=== PATIENT | female | born 1945 | race Caucasian/White ===

== ENCOUNTER 2016-10-07 11:14 | Inpatient (IN) | payer MEDICARE ==
[~2016-10-07] VITALS: Ht 165.1 cm; Wt 91.3 kg
[2016-10-07] VITALS (12 sets, daily range): BP systolic 119–152; BP diastolic 60–82; PULSE 73–79; RESP 16–24; TEMP 98.2–102.6; O2SAT 89–94
[~2016-10-07 11:14] MED LIST: AMIT100 PO; ASPI325T PO; CALA240T PO; CIPR500T4 PO; FISH100020 PO; FLAG500T PO; HYDR-3533 PO; MEVA40TA PO; MULT1TAB46 PO; VITA10004 PO
[2016-10-07] MEDS ORDERED: MULT-135 PO (13:04)
[2016-10-07] MEDS ORDERED: OMEG100010 PO (13:04)
[2016-10-07] MEDS ORDERED: VITA10004 PO (13:04)
[2016-10-07] MEDS ORDERED: AMIT1TAB79 PO (13:04)
[2016-10-07] MEDS ORDERED: VERA1TAB17 PO (13:04)
[2016-10-07] MEDS ORDERED: ASPI325T PO (13:04)
[2016-10-07] MEDS ORDERED: LOVA40TA PO (13:04)
[2016-10-07] MEDS ORDERED: MUCI30TA2 PO (13:19)
[2016-10-07] MEDS ORDERED: ACETAMINOPHEN 325 MG TAB PO ONE (13:45)
[2016-10-07] MEDS ORDERED: methylPREDNISolone SOD SUCC 125 MG/2 ML VIAL IVP ONE (13:45)
[2016-10-07 13:48] LABS: AUTOMATED NEUTROPHIL # 9.6 TH/MM3 (1.8-7.7); BASOPHIL % 0.1 % (0.0-2.0); HEMATOCRIT 38.5 % (35.0-46.0); LYMPHOCYTE # 0.6 TH/MM3 (1.0-4.8); MEAN CELL VOLUME 97.1 FL (80.0-100.0); MEAN CORPUSCULAR HEMOGLOBIN 32.2 PG (27.0-34.0); MEAN CORPUSCULAR HGB CONC 33.2 % (32.0-36.0); MONO % 0.7 % (0.0-8.0); NEUT % 93.2 % (16.0-70.0); PLATELET COUNT 199 TH/MM3 (150-450); RED BLOOD COUNT 3.97 MIL/MM3 (4.00-5.30); RED CELL DISTRIBUTION WIDTH 12.7 % (11.6-17.2); WHITE BLOOD COUNT 10.3 TH/MM3 (4.0-11.0)
[2016-10-07] MEDS: RESP: ALBUTEROL 2.5 MG/IPRATROPIUM 0.5 MG NEB (SCH) INH ×2 (13:51→13:52)
[2016-10-07 13:55] LABS: HEMO FLAGS DIFF FINAL
--- NOTE | 2016-10-07 13:55 | RADHPO ---
EXAM DATE/TIME: 10/07/2016 13:34 [facility] COMPARISON: No previous studies available for comparison. INDICATIONS : Fever and vomiting. MEDICAL HISTORY : Chronic obstructive pulmonary disease. Diverticulitis. Cardiovascular disease. Hypertension SURGICAL HISTORY : Hysterectomy. Inguinal hernia repair. ENCOUNTER: Initial ACUITY: 1 week PAIN SCORE: 6/10 LOCATION: Bilateral chest FINDINGS: A single view of the chest demonstrates patchy consolidative changes greater within the upper lobes a nd left midlung. Heart enlarged. Previous median sternotomy. Osseous structures are intact. CONCLUSION: 1. Multi-lobar consolidation likely multilobar pneumonia. Treatment and followup to resolution recomm ended. 2. Cardiomegaly and previous median sternotomy. Justen Keen MD on October 07, 2016 at 13:52 Board Certified Radiologist. This report was verified electronically.
[2016-10-07 13:58] LABS: CHLORIDE 98 MEQ/L (98-107); POTASSIUM 3.8 MEQ/L (3.5-5.1); SODIUM (NA) 136 MEQ/L (136-145)
[2016-10-07 14:02] LABS: ANION GAP 13 MEQ/L (5-15); BICARBONATE 24.7 MEQ/L (21.0-32.0); BLOOD UREA NITROGEN 15 MG/DL (7-18)
[2016-10-07 14:05] LABS: ALT (GPT) 18 U/L (10-53); AST (GOT) 19 U/L (15-37); GLOMERULAR FILTRATION RATE 55 ML/MIN (>89)
[2016-10-07 14:07] LABS: TOTAL BILIRUBIN ADULT 0.6 MG/DL (0.2-1.0)
[2016-10-07 14:08] LABS: ALKALINE PHOSPHATASE 72 U/L (45-117)
[2016-10-07] MEDS ORDERED: cefTRIAXone INJ 1,000 MG in SODIUM CHLORIDE 0.9% INJ 100 ML IV ONE (14:15)
[2016-10-07] MEDS ORDERED: AZITHROMYCIN INJ 500 MG in SODIUM CHLOR 0.9% 250 ML INJ 250 ML IV ONE (14:15)
--- NOTE | 2016-10-07 14:24 | PD ---
HPI Chief Complaint: GI Complaint Time Seen by Provider: 13:27 Travel History International Travel<30 days: No Contact w/Intl Traveler<30days: No Traveled to known affect area: No History of Present Illness HPI This 71 year-old woman presents emergency department complaining of feeling sick for the past 4 days. She has bodyaches fever headache cough. Some nausea but no vomiting. No change in her vomitus. No urinary symptoms. She is a history of diverticulitis as well as remote history COPD. She is really have a lot of breathing trouble doesn't take breathing medicines regularly. She does get pneumonia fairly often. No definite sick contacts. She otherwise has been feeling generally well and healthy. History Past Medical History Narrative Medical CAD, CABG Hypertension on hyperlipidemia History of COPD Influenza Vaccination: Yes PNEUMOCCOCAL Vaccine (Year): 1 Menopausal: Yes Social History Alcohol Use: No Tobacco Use: No (QUIT 2004) Allergies-Medications (Allergen,Severity, Reaction): Coded Allergies: No Known Allergies (Verified , 10/07/16) Reported Meds & Prescriptions Reported Meds & Active Scripts Active Reported Mucinex DM (Dextromethorphan-Guaifenesin) 30-600 Mg Tab 1 Tab PO BID PRN Vitamin B12 Tr (Cyanocobalamin) 1,000 Mcg Tab 1,000 Mcg PO DAILY Verapamil ER 24 HR (Verapamil HCl) 240 Mg Tab 240 Mg PO BID Durham 3 1000 mg (Durham-3 Fatty Acids) 1 Cap Cap Multi Vitamin (Multiple Vitamin) 1 Tab Tab 1 Tab PO DAILY Lovastatin 40 Mg Tab 80 Mg PO HS Elavil (Amitriptyline HCl) 25 Mg Tab 100 Mg PO HS Aspirin 325 Mg Tab 325 Mg PO DAILY Review of Systems Except as stated in HPI: all other systems reviewed are Neg Physical Exam Narrative GENERAL: Well-appearing 71 year-old woman, no acute distress. SKIN: Warm and dry. HEAD: Atraumatic. Normocephalic. CARDIOVASCULAR: Regular rate and rhythm. No murmur appreciated. RESPIRATORY: Frequent cough. Coarse breath sounds with wheezing in the posterior lung gutierrez. Minimal respiratory distress. GASTROINTESTINAL: Abdomen soft, non-tender, nondistended. Hepatic and splenic margins not palpable. MUSCULOSKELETAL: No obvious deformities. No edema. NEUROLOGICAL: Awake and alert. No obvious cranial nerve deficits. Motor grossly within normal limits. Normal speech. PSYCHIATRIC: Appropriate mood and affect; insight and judgment normal. Data Data Last Documented VS Vital Signs Date Time Temp Pulse Resp B/P Pulse Ox O2 Delivery O2 Flow Rate FiO2 10/07/16 13:41 94 Nasal Cannula 2 10/07/16 12:55 102.6 73 16 152/79 Orders Complete Blood Count With Diff (10/07/16 13:27) Comprehensive Metabolic Panel (10/07/16 13:27) Lactic Acid Sepsis Protocol (10/07/16 13:27) Troponin I (10/07/16 13:27) Urinalysis - C+S If Indicated (10/07/16 13:27) Influenzae A/B Antigen (10/07/16 13:27) Blood Culture (10/07/16 13:27) Chest, Single Ap (10/07/16 13:27) Blood Glucose (10/07/16 13:27) Ecg Monitoring (10/07/16 13:27) Iv Access Insert/Monitor (10/07/16 13:27) Oximetry (10/07/16 13:27) Oxygen Administration (10/07/16 13:27) Methylprednisolone So Succ Inj (Solumedr (10/07/16 13:45) Albuterol-Ipratropium Neb (Duoneb Neb) (10/07/16 13:45) Acetaminophen (Tylenol) (10/07/16 13:45) Ceftriaxone Inj (Rocephin Inj) (10/07/16 14:15) Azithromycin Inj (Zithromax Inj) (10/07/16 14:15) Labs Laboratory Tests Test 10/07/16 13:36 White Blood Count 10.3 TH/MM3 Red Blood Count 3.97 MIL/MM3 Hemoglobin 12.8 GM/DL Hematocrit 38.5 % Mean Corpuscular Volume 97.1 FL Mean Corpuscular Hemoglobin 32.2 PG Mean Corpuscular Hemoglobin 33.2 % Concent Red Cell Distribution Width 12.7 % Platelet Count 199 TH/MM3 Mean Platelet Volume 8.4 FL Neutrophils (%) (Auto) 93.2 % Lymphocytes (%) (Auto) 6.0 % Monocytes (%) (Auto) 0.7 % Eosinophils (%) (Auto) 0.0 % Basophils (%) (Auto) 0.1 % Neutrophils # (Auto) 9.6 TH/MM3 Lymphocytes # (Auto) 0.6 TH/MM3 Monocytes # (Auto) 0.1 TH/MM3 Eosinophils # (Auto) 0.0 TH/MM3 Basophils # (Auto) 0.0 TH/MM3 CBC Comment DIFF FINAL Differential Comment Sodium Level 136 MEQ/L Potassium Level 3.8 MEQ/L Chloride Level 98 MEQ/L Carbon Dioxide Level 24.7 MEQ/L Anion Gap 13 MEQ/L Blood Urea Nitrogen 15 MG/DL Creatinine 1.00 MG/DL Estimat Glomerular Filtration 55 ML/MIN Rate Random Glucose 117 MG/DL Lactic Acid Level 2.7 mmol/L Calcium Level 8.9 MG/DL Total Bilirubin 0.6 MG/DL Aspartate Amino Transf 19 U/L (AST/SGOT) Alanine Aminotransferase 18 U/L (ALT/SGPT) Alkaline Phosphatase 72 U/L Troponin I LESS THAN 0.02 NG/ML Total Protein 7.5 GM/DL Albumin 3.0 GM/DL [facility] [place] Medical Decision Making Medical Screen Exam Complete: Yes Emergency Medical Condition: Yes Interpretation(s) LABS: CBC unremarkable. CMP is unremarkable. Lactate is 2.7 Troponins negative. Chest x-ray: Multilobar consolidation most likely lower pneumonia. Treatment and follow-up to resolution recommended. Differential Diagnosis Pneumonia, influenza, other Narrative Course Medical decision making 71 year-old woman presents emergent department cough cold fevers chills found to have multilobar pneumonia. Flu was negative. No recent healthcare exposures. Given IV antibiotics. Was also given steroids and breathing treatments. Patient will be admitted for further evaluation. Diagnosis Primary Impression: Pneumonia Qualified Code: J18.9 - Pneumonia of both lungs due to infectious organism, unspecified part of lung Admitting Information Admitting Physician Requests: Admit Tony Mascorro MD Oct 07, 2016 14:24
[2016-10-07] MEDS ORDERED: NALOXONE HCL 0.4 MG/ML AMP IV PRN (14:30)
[2016-10-07] MEDS ORDERED: MAGNESIUM HYDROXIDE SUSP 30 ML CUP PO PRN (14:30)
--- NOTE | 2016-10-07 15:00 | RADHPO ---
EXAM DATE/TIME: 10/07/2016 14:47 [facility] COMPARISON: CHEST SINGLE AP, October 07, 2016, 13:34. INDICATIONS : Abnormal chest xray. Pneumonia. RADIATION DOSE: 11.84 CTDIvol (mGy) MEDICAL HISTORY : Chronic obstructive pulmonary disease. Cardiovascular disease Hypertension. SURGICAL HISTORY : Hysterectomy. ENCOUNTER: Initial ACUITY: 1 week PAIN SCALE: 0/10 LOCATION: chest TECHNIQUE: Volumetric scanning of the chest was performed. Using automated exposure control and adjustment of t he mA and/or kV according to patient size, radiation dose was kept as low as reasonably achievable to obtain optimal diagnostic quality images. FINDINGS: LUNGS: There is multilobar consolidation greater within the left upper lobe, lingula, right upper lobe and t o lesser degree appears segment right lower lobe. Minimal patchy densities right middle lobe and left lower lobe.. No concerning pulmonary nodule is visualized. PLEURAE: There is no pleural thickening or pleural effusion. MEDIASTINUM: The heart and great vessels demonstrate no acute abnormality. There is no mediastinal or hilar lymph adenopathy. Previous CABG. AXILLAE: Within normal limits. No lymphadenopathy. MUSCULOSKELETAL: Within normal limits for patient age. MISCELLANEOUS: The visualized upper abdominal organs demonstrate no acute abnormality. CONCLUSION: 1. Multilobar consolidation greater in the upper lobes likely pneumonia. Treatment and followup to re solution. 2. Status post CABG. Justen Keen MD on October 07, 2016 at 14:57 Board Certified Radiologist. This report was verified electronically.
[2016-10-07 15:41] LABS: LACTIC ACID GHOST NOT REPORTABLE
[2016-10-07] MEDS: SODIUM CHLOR 0.9% 1000 ML INJ 1,000 ML IV SCH ×2 (16:01→19:24)
--- NOTE | 2016-10-07 17:01 | HHI.HP ---
[facility] Stephanie Horner MD Admission Diagnosis multi lobar pneumonia Diagnoses: (1) Bilateral pneumonia (2) Hypoxia Diagnosis: Principal (3) Lactic acid acidosis Diagnosis: Principal (4) Febrile illness Diagnosis: Principal (5) Hypertension Diagnosis: Secondary (6) Hyperlipidemia Diagnosis: Secondary (7) Chronic obstructive pulmonary disease Diagnosis: Secondary (8) Gastroesophageal reflux Diagnosis: Secondary Chief Complaint: Feeling sick for 4 days Travel History International Travel<30 Days: No Contact w/Intl Traveler <30 Da: No Traveled to Known Affected Are: No Sepsis Criteria SIRS Criteria (2 or more): Temp > 100.9 or < 96.8 Sepsis Criteria (SIRS+source): Infect source susp/known Severe Sepsis (+one): Lactate >2 History of Present Illness 71-year-old female with known history of hypertension, hyponatremia, coronary artery disease, gastroesophageal reflux, chronic obstructive pulmonary disease, history CABG 2 presented to the hospital because of fever, chills, body aches, lethargy for 3 days. Patient was in her normal state of health until [place] even when she states that finished cooking the turkey and did not feel well so she told her son that she was going to go to bed. Patient states that she did not get out of bed until her daughter came and told her today that she had no choice is either going the ambulance or her taking her to the hospital. During this 3 days the patient states that she is lying in bed, had no energy, lethargic, cough without any phlegm production, fever and chills , body aches. She denied any nausea, vomiting, diarrhea, constipation, no unilateral weakness. The patient denies any recent travel, however she did go to [facility] approximately a week ago. She states he did get her flu shot in July. At the time of seeing the patient she obviously looks much better than her record and x-ray show. Patient will be admitted for further evaluation management. Review of Systems Constitutional: COMPLAINS OF: Fever, Chills, DENIES: Diaphoretic episodes, Fatigue, Weight gain, Weight loss, Dizziness, Change in appetite, Night Sweats Eyes: DENIES: Blurred vision, Diplopia, Eye inflammation, Eye pain, Vision loss , Photosensitivity, Double Vision Ears, nose, mouth, throat: COMPLAINS OF: Throat pain, Running Nose, DENIES: Vertigo, Nasal discharge, Ear Pain, Sinus Pain Respiratory: COMPLAINS OF: Cough, DENIES: Apneas, Snoring, Wheezing, Hemoptysis, Sputum production, Shortness of breath Cardiovascular: DENIES: Chest pain, Palpitations, Syncope, Dyspnea on Exertion , PND, Lower Extremity Edema, Orthopnea, Claudication Gastrointestinal: DENIES: Abdominal pain, Black stools, Bloody stools, Constipation, Diarrhea, Nausea, Vomiting, Difficulty Swallowing, Anorexia Neurologic: DENIES: Abnormal gait, Headache, Localized weakness, Paresthesias, Seizures, Speech Problems, Tremor, Poor Balance Past Family Social History Past Medical History Hypertension Hyperlipidemia Coronary artery disease status post CABG History of myocardial infarction Chronic obstructive pulmonary disease Gastroesophageal reflux History of diverticulitis Migraine cephalgia Past Surgical History Hysterectomy Coronary artery bypass surgery Hernia repair Reported Medications Reported Meds & Active Scripts Active Reported Mucinex DM (Dextromethorphan-Guaifenesin) 30-600 Mg Tab 1 Tab PO BID PRN Vitamin B12 Tr (Cyanocobalamin) 1,000 Mcg Tab 1,000 Mcg PO DAILY Verapamil ER 24 HR (Verapamil HCl) 240 Mg Tab 240 Mg PO BID Seco 3 1000 mg (Seco-3 Fatty Acids) 1 Cap Cap Multi Vitamin (Multiple Vitamin) 1 Tab Tab 1 Tab PO DAILY Lovastatin 40 Mg Tab 80 Mg PO HS Elavil (Amitriptyline HCl) 25 Mg Tab 100 Mg PO HS Aspirin 325 Mg Tab 325 Mg PO DAILY Allergies: Coded Allergies: No Known Allergies (Verified , 10/07/16) Family History Reviewed is significant for both parents from coronary artery disease. Brother with coronary artery disease. Father had lung cancer Social History Patient quit smoking in 2003, prior to that she smoked about 4 cigarettes daily since she was a teenager. Patient denies any alcohol or illicit drugs Physical Exam Vital Signs Vital Signs Date Time Temp Pulse Resp B/P Pulse Ox O2 Delivery O2 Flow Rate FiO2 10/07/16 16:03 99.3 79 18 123/62 93 Nasal Cannula 2 10/07/16 13:41 94 Nasal Cannula 2 10/07/16 13:41 94 Nasal Cannula 2 10/07/16 12:55 102.6 73 16 152/79 89 Room Air 10/07/16 11:37 100.2 75 20 139/82 92 Physical Exam GENERAL: Well-developed, well-nourished, in no acute distress. alert and orientated HEENT: Head is normocephalic without any lesions or masses noted. Facial features are symmetric. Eyes: Pupils equal round reactive to light. Extraocular muscles are intact. Conjunctivae were clear. Oropharyngeal: Pharynx without any erythema edema. Tongue is midline without deviation. Buccal mucosa is moist without any masses or lesions NECK: Supple without any masses. Trachea midline no deviation. No JVD, no bruits are appreciated CARDIAC: Regular rhythm, regular rate. S1/S2 are heard. No murmurs gallops or rubs. LUNGS: Clear to auscultation bilaterally. No wheeze, rhonchi or rales. No use of accessory muscles on inspiration or expiration. ABDOMEN: Soft, nontender. Nondistended. Bowel sounds heard in all 4 quadrants. No organomegaly or masses. Negative rebound, negative guarding EXTREMITIES: No edema, pulses are equal bilaterally. No cyanosis or clubbing NEUROLOGY: Mood and affect appear appropriate. Cranial nerves II through XII grossly intact. Muscle strength 5/5 in upper and lower extremities bilaterally. Deep tendon reflexes are 2+ in upper and lower extremities bilaterally. Laboratory Laboratory Tests Test 10/07/16 13:36 White Blood Count 10.3 Red Blood Count 3.97 Hemoglobin 12.8 Hematocrit 38.5 Mean Corpuscular Volume 97.1 Mean Corpuscular Hemoglobin 32.2 Mean Corpuscular Hemoglobin 33.2 Concent Red Cell Distribution Width 12.7 Platelet Count 199 Mean Platelet Volume 8.4 Neutrophils (%) (Auto) 93.2 Lymphocytes (%) (Auto) 6.0 Monocytes (%) (Auto) 0.7 Eosinophils (%) (Auto) 0.0 Basophils (%) (Auto) 0.1 Neutrophils # (Auto) 9.6 Lymphocytes # (Auto) 0.6 Monocytes # (Auto) 0.1 Eosinophils # (Auto) 0.0 Basophils # (Auto) 0.0 CBC Comment DIFF FINAL Differential Comment Sodium Level 136 Potassium Level 3.8 Chloride Level 98 Carbon Dioxide Level 24.7 Anion Gap 13 Blood Urea Nitrogen 15 Creatinine 1.00 Estimat Glomerular Filtration 55 Rate Random Glucose 117 Lactic Acid Level 2.7 Calcium Level 8.9 Total Bilirubin 0.6 Aspartate Amino Transf 19 (AST/SGOT) Alanine Aminotransferase 18 (ALT/SGPT) Alkaline Phosphatase 72 Troponin I LESS THAN 0.02 Total Protein 7.5 Albumin 3.0 Date/Time Procedure Status Source Growth 10/07/16 13:36 Influenza Types A,B Antigen (KESHA) - Final Complete Nasal Washing NEGATIVE FOR FLU A AND B ANTIGEN.... 10/07/16 13:36 Aerobic Blood Culture Received Blood Peripheral Pending 10/07/16 13:36 Anaerobic Blood Culture Received Blood Peripheral Pending Result Diagram: 10/07/16 1336 10/07/16 1336 Imaging Last Impressions Chest X-Ray 10/07/16 1327 Signed Impressions: Service Date/Time: Friday, October 07, 2016 13:34 - CONCLUSION: 1. Multi-lobar consolidation likely multilobar pneumonia. Treatment and followup to resolution recommended. 2. Cardiomegaly and previous median sternotomy. Justen Keen MD Chest CT 10/07/16 0000 Signed Impressions: Service Date/Time: Friday, October 07, 2016 14:47 - CONCLUSION: 1. Multilobar consolidation greater in the upper lobes likely pneumonia. Treatment and followup to resolution. 2. Status post CABG. Justen Keen MD Septic Shock Reassessment Heart: Regular rate and rhythm Lungs: Course Skin: Warm Peripheral Pulses: Bounding Right Radial Bounding Left Radial Capillary Refill: Brisk, <2 seconds Assessment and Plan Assessment and Plan Bilateral pneumonia, very atypical with left upper lobe and right middle lobe consolidations with hypoxia Continue O2 supplementation maintain O2 sats greater than 92% Continue Rocephin and Zithromax Duo nebs every 4 hours and every 2 hours as needed Mucinex Obtain sputum culture Influenza testing was negative Obtain Legionella and pneumococcal antigen testing Febrile illness with lactic acid acidosis, likely secondary to multilobar pneumonia Tylenol as needed for fever Continue follow cultures Blood cultures pending Check urinalysis Continue lactic acid sepsis protocol Hypertension, hyperlipidemia, coronary artery disease Continue home medications DVT prevention Subcutaneous heparin Written by Samuel Palma PA-C, acting as scribe for Dr. Vincent on at 1800. The documentation accurately reflects the work and decisions performed face-to- face by Dr. Vincent on 10/07/16 at 1800. Physician Certification 2 Midnight Certification Type: Admission for Inpatient Services Order for Inpatient Services The services are ordered in accordance with Medicare regulations or non- Medicare payer requirements, as applicable. In the case of services not specified as inpatient-only, they are appropriately provided as inpatient services in accordance with the 2-midnight benchmark. Estimated LOS (days): 3 days is the estimated time the patient will need to remain in the hospital, assuming treatment plan goals are met and no additional complications. Post-Hospital Plan: Not yet determined Problem Qualifiers (1) Bilateral pneumonia: Qualified Code: J18.9 - Pneumonia of both lungs due to infectious organism, unspecified part of lung (2) Hypertension: Qualified Code: I15.9 - Secondary hypertension (3) Hyperlipidemia: Qualified Code: E78.5 - Hyperlipidemia, unspecified hyperlipidemia type (4) Chronic obstructive pulmonary disease: Qualified Code: J44.9 - Chronic obstructive pulmonary disease, unspecified COPD type (5) Gastroesophageal reflux: Qualified Code: K21.9 - Gastroesophageal reflux disease, esophagitis presence not specified Samuel Palma Oct 07, 2016 17:01
[2016-10-07 18:39] LABS: BLOOD, URINE NEG (NEG); GLUCOSE,URINE NEG (NEG); KETONE, URINE NEG (NEG); NITRITE,URINE NEG (NEG)
[2016-10-07] MEDS ORDERED: SODIUM CHLOR 0.9% 1000 ML INJ 1,000 ML IV ONE (19:00)
[2016-10-07 19:03] LABS: URINE COLOR YELLOW (YELLW/STRAW)
[2016-10-07 19:07] LABS: BACTERIA, URINE FEW /hpf; METHOD OF COLLECTION CLEAN CATCH; SQUAMOUS EPITHELIAL CELL URINE 0-3 /hpf (0-5); WBC, URINE 0-2 /hpf (0-5)
[2016-10-07 19:08] LABS: COMMENT (UR) CULT NOT INDICATED; CULTURE IF INDICATED CULT NOT INDICATED
[2016-10-07] MEDS: RESP: ALBUTEROL 2.5 MG/IPRATROPIUM 0.5 MG NEB (SCH) NEB (19:22)
[2016-10-07] MEDS: ACETAMINOPHEN 325 MG TAB PO PRN (20:42)
[2016-10-07] MEDS: HEPARIN SODIUM - SQ 10,000 UNITS/ML VIAL SQ SCH (20:43)
[2016-10-07] MEDS: guaiFENesin E.R. 600 MG TAB PO SCH (20:43)
--- NOTE | 2016-10-07 21:17 | MB ---
cc: KATARZYNA ELLIS MD DATE OF CONSULTATION 10/07/[address] Samuel Vincent. REASON FOR CONSULTATION Evaluate for pneumonia. HISTORY OF THE PRESENT ILLNESS Ms. Santiago is a pleasant 71-year-old white female with history of COPD, coronary artery disease status post CABG times five done in 2004. She did have a heart attack at that time. The patient was told that she has COPD but has not been taking any medications for that. She has not been doing well for the last two weeks or so. She has cough, initially dry, and has mild discomfort in her chest. She also started having fever up to 102 degrees. Has some wheezing and increasing shortness of breath. Because of the worsening of her symptoms she was brought to the hospital. She had a workup done. LABORATORY DATA WBC count is 10.3, hemoglobin 12.8, hematocrit 38.5, MCV 97, platelet count 199. Sodium 136, potassium 3.8, chloride 98, CO2 24, BUN 15, creatinine 1.0. Troponin less than 0.02. IMAGING She had a CT scan of the chest done which shows multilevel consolidation greater in the upper lobes. PAST MEDICAL HISTORY Significant for: 1. A history of coronary artery disease status post CABG times five. done in 2004. 2. History of hypertension. 3. Hysterectomy. 4. History of hernia surgery. MEDICATIONS She is currently takin. Rocephin 1 gram a day. 2. Zithromax 500 milligrams daily. 3. Heparin 5000 q.12-hour. 4. Mucinex 600 milligrams twice a day. 5. Albuterol/Atrovent nebulizer treatment. ALLERGIES NO KNOWN DRUG ALLERGIES. SOCIAL HISTORY She is a . She has a long history of smoking until 2004 when she had a bypass and she quit smoking. No alcohol use. 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 FAMILY HISTORY She has seven children, one daughter has lupus. REVIEW OF SYSTEMS Normally she is up, around and active. Weight has been stable. No headache or dizziness. No malignancy. No DVT or pulmonary embolism. PHYSICAL EXAMINATION GENERAL: Elderly female. Mild short of breath. VITAL SIGNS: Blood pressure 123/62, heart rate 79, temperature max 102.6, now it is 99.3. HEENT: Pupils are equal and reactive to light. She has bilateral cataract. Oral mucosa, nasal mucosa normal. NECK: Supple. JVP not raised. CHEST: She has bilateral rales. CARDIOVASCULAR: S1, S2 normal. ABDOMEN: Soft, nondistended. Bowel sounds are present. EXTREMITIES: No edema. IMPRESSION 1. Bilateral pneumonia likely community-acquired pneumonia. 2. Chronic obstructive pulmonary disease. 3. Hypertension. 4. History of coronary artery disease status post CABG. PLAN I discussed with the patient and her daughters we will check her blood culture, sputum culture. Give her antibiotic Rocephin and Zithromax. Supplement her oxygen. Give her aerosol treatment, IV Solu-Medrol. Once she gets better we will also check pulmonary function study. Further treatment will depend on the course in the hospital. Thank you Dr. Vincent for this consultation. MD GERONIMO Jaramillo/VERENICE /5:06 PM /9:01 PM
[2016-10-07] MEDS ORDERED: CHLORHEXIDINE GLUCONATE 2 % 1 PACK (2 CLOTHS)(extra cloths) TOP PRN (23:15)
[2016-10-08] VITALS (26 sets, daily range): BP systolic 132–166; BP diastolic 56–81; PULSE 70–88; RESP 23–30; TEMP 98–99.1; O2SAT 90–97
[2016-10-08] MEDS: SODIUM CHLOR 0.9% 1000 ML INJ 1,000 ML IV SCH ×2 (01:03→05:56)
[2016-10-08] MEDS: CHLORHEXIDINE GLUCONATE 2 % 1 PACK (2 CLOTHS)(taper/protocol) TOP SCH (04:00)
[2016-10-08 05:24] LABS: AUTOMATED NEUTROPHIL # 9.9 TH/MM3 (1.8-7.7); BASOPHIL % 0.4 % (0.0-2.0); HEMATOCRIT 33.7 % (35.0-46.0); LYMPH % 5.8 % (9.0-44.0); LYMPHOCYTE # 0.6 TH/MM3 (1.0-4.8); MEAN CELL VOLUME 96.4 FL (80.0-100.0); MEAN CORPUSCULAR HEMOGLOBIN 32.2 PG (27.0-34.0); MEAN CORPUSCULAR HGB CONC 33.4 % (32.0-36.0); MONO % 2.1 % (0.0-8.0); NEUT % 91.7 % (16.0-70.0); PLATELET COUNT 191 TH/MM3 (150-450); RED CELL DISTRIBUTION WIDTH 12.7 % (11.6-17.2); WHITE BLOOD COUNT 10.8 TH/MM3 (4.0-11.0)
[2016-10-08 05:51] LABS: BICARBONATE 25.1 MEQ/L (21.0-32.0); POTASSIUM 3.3 MEQ/L (3.5-5.1)
[2016-10-08 05:53] LABS: HEMO FLAGS AUTO DIFF
[2016-10-08] MEDS ORDERED: POTASSIUM CL 40 MEQ/30 ML LIQ UDC PO ONE (06:45)
[2016-10-08] MEDS: RESP: ALBUTEROL 2.5 MG/IPRATROPIUM 0.5 MG NEB (SCH) NEB ×4 (07:22→20:00)
[2016-10-08 07:23] LABS: SCAN/DIFF AUTO DIFF CONFIRMED
[2016-10-08] MEDS: HEPARIN SODIUM - SQ 10,000 UNITS/ML VIAL SQ SCH ×2 (07:44→20:52)
[2016-10-08] MEDS: guaiFENesin E.R. 600 MG TAB PO SCH ×2 (07:45→20:51)
--- NOTE | 2016-10-08 08:27 | HHI.PR ---
Subjective Remarks Follow up pneumonia, hypokalemia, lactic acidosis. The patient states that she feels a little worse today. Cough is now productive. Denies dyspnea, chest pain. Objective Vitals Vital Signs Date Time Temp Pulse Resp B/P Pulse Ox O2 Delivery O2 Flow Rate FiO2 10/08/16 07:23 93 Nasal Cannula 2.00 10/08/16 06:00 70 24 150/68 94 10/08/16 05:00 72 24 142/69 94 10/08/16 04:00 99.1 72 24 137/73 94 10/08/16 03:00 72 24 151/67 94 10/08/16 02:00 74 24 136/76 92 10/08/16 01:00 72 24 136/58 92 10/08/16 00:00 83 24 146/70 93 10/07/16 23:00 74 24 137/64 92 10/07/16 22:00 77 24 125/63 93 10/07/16 22:00 75 10/07/16 21:00 75 24 122/61 92 10/07/16 21:00 74 10/07/16 20:30 78 10/07/16 20:15 98.2 78 24 119/60 93 10/07/16 19:25 94 Nasal Cannula 2.00 10/07/16 19:07 98.3 75 18 135/65 94 Nasal Cannula 2 10/07/16 16:03 99.3 79 18 123/62 93 Nasal Cannula 2 10/07/16 16:00 94 Nasal Cannula 2.00 10/07/16 13:41 94 Nasal Cannula 2 10/07/16 13:41 94 Nasal Cannula 2 10/07/16 12:55 102.6 73 16 152/79 89 Room Air 10/07/16 11:37 100.2 75 20 139/82 92 I/O 10/07/16 10/07/16 10/07/16 10/08/16 10/08/16 10/08/16 06:59 14:59 22:59 06:59 14:59 22:59 Intake Total 1924 ml 1258 ml Output Total 500 ml 1100 ml Balance 1424 ml 158 ml Intake Oral 360 ml 262 ml IV Total 1564 ml 996 ml Output Urine Total 500 ml 1100 ml # Voids 1 # Bowel Movements 0 1 Result Diagram: 10/08/16 0455 10/08/16 0455 Imaging Last Impressions Chest X-Ray 10/07/16 1327 Signed Impressions: Service Date/Time: Friday, October 07, 2016 13:34 - CONCLUSION: 1. Multi-lobar consolidation likely multilobar pneumonia. Treatment and followup to resolution recommended. 2. Cardiomegaly and previous median sternotomy. Justen Keen MD Chest CT 10/07/16 0000 Signed Impressions: Service Date/Time: Friday, October 07, 2016 14:47 - CONCLUSION: 1. Multilobar consolidation greater in the upper lobes likely pneumonia. Treatment and followup to resolution. 2. Status post CABG. Justen Keen MD Objective Remarks General: No acute distress. Heart: Regular rate and rhythm. No murmur. Lungs: Diffuse rhonchi. Breathing is nonlabored. Abdomen: Soft, nontender, nondistended. Extremities: No lower extremity edema. Psych: Alert and oriented. Urinary Catheter: No Vascular Central Line Catheter: No A/P Problem List: (1) Bilateral pneumonia ICD Code: J18.9 Status: Acute (2) Hypoxia ICD Code: R09.02 Status: Acute (3) Lactic acid acidosis ICD Code: E87.2 Status: Acute (4) Febrile illness ICD Code: R50.9 Status: Acute (5) Hypertension ICD Code: I10 Status: Chronic (6) Hyperlipidemia ICD Code: E78.5 Status: Chronic (7) Chronic obstructive pulmonary disease ICD Code: J44.9 Status: Chronic (8) Gastroesophageal reflux ICD Code: K21.9 Status: Chronic Assessment and Plan 1. Bilateral multilobar pneumonia: Left upper lobe and right middle lobe consolidations noted on imaging. Appreciate pulmonology recommendations. Continue Rocephin, azithromycin. Continue DuoNeb. Continue supplemental oxygen. Sputum culture ordered. Influenza negative. Legionella and pneumococcal antigen testing ordered. 2. Febrile illness with lactic acidosis: Likely secondary to multilobar pneumonia. Tylenol as needed. Follow lactic acid levels per sepsis protocol. Blood cultures are pending. 3. Hypertension: Continue home meds. 4. Hyperlipidemia: Continue statin. 5. Coronary artery disease: Currently asymptomatic. Continue home medications. 6. Hypokalemia: Supplement potassium. Adjust IV fluids. 7. DVT prophylaxis: Heparin. Problem Qualifiers (1) Bilateral pneumonia: Qualified Code: J18.9 - Pneumonia of both lungs due to infectious organism, unspecified part of lung (2) Hypertension: Qualified Code: I15.9 - Secondary hypertension (3) Hyperlipidemia: Qualified Code: E78.5 - Hyperlipidemia, unspecified hyperlipidemia type (4) Chronic obstructive pulmonary disease: Qualified Code: J44.9 - Chronic obstructive pulmonary disease, unspecified COPD type (5) Gastroesophageal reflux: Qualified Code: K21.9 - Gastroesophageal reflux disease, esophagitis presence not specified Samuel Vincent MD Oct 08, 2016 08:27
[2016-10-08] MEDS: NS + KCL 20 MEQ INJ 1,000 ML IV SCH (09:00)
[2016-10-08] MEDS: MULTIVITAMIN TAB PO SCH (09:00)
[2016-10-08] MEDS: VERAPAMIL HCL 240 MG SUSTAINED RELEASE TAB PO SCH ×2 (09:00→20:51)
[2016-10-08] MEDS: ASPIRIN 325 MG TAB PO SCH (09:00)
[2016-10-08] MEDS: CYANOCOBALAMIN 1,000 MCG TAB PO SCH (09:00)
[2016-10-08 10:45] LABS: BOR. HOLMESII NOT DETECTED (NOT DETECT); BOR. PARA/BRONCH NOT DETECTED (NOT DETECT); BOR. PERTUSSIS NOT DETECTED (NOT DETECT); INFLUENZA B NOT DETECTED (NOT DETECT); RESP SYNCYTIAL VIRUS A NOT DETECTED (NOT DETECT); RESP SYNCYTIAL VIRUS B NOT DETECTED (NOT DETECT)
[2016-10-08] MEDS: cefTRIAXone INJ 1,000 MG in SODIUM CHLORIDE 0.9% INJ 100 ML IV SCH (11:14)
[2016-10-08] MEDS ORDERED: CAFFEINE PO PRN (11:30)
[2016-10-08] MEDS ORDERED: ACETAMINOPHEN PO PRN (11:30)
[2016-10-08] MEDS: AZITHROMYCIN INJ 250 MG in SODIUM CHLOR 0.9% 250 ML INJ 250 ML IV SCH (13:11)
[2016-10-08] MEDS: BENZONATATE 100 MG CAP PO PRN ×2 (15:08→23:29)
--- NOTE | 2016-10-08 17:12 | HHI.PR ---
Subjective Remarks 71 YOWF with Bilat Pn, resp insuff Feels much better Up in chair No Fever On NC Objective Vital Signs Vital Signs Date Time Temp Pulse Resp B/P Pulse Ox O2 Delivery O2 Flow Rate FiO2 10/08/16 16:00 99.0 76 26 138/59 94 10/08/16 15:00 75 28 148/65 95 10/08/16 14:00 83 27 132/69 94 10/08/16 13:00 84 26 166/80 95 10/08/16 12:00 98.9 84 23 152/67 92 10/08/16 11:30 73 10/08/16 11:00 78 23 163/78 92 10/08/16 10:00 77 24 94 10/08/16 09:00 80 26 132/65 94 10/08/16 08:00 99.1 72 28 153/67 94 10/08/16 08:00 84 10/08/16 07:23 93 Nasal Cannula 2.00 10/08/16 07:00 78 28 153/81 94 10/08/16 06:00 70 24 150/68 94 10/08/16 05:00 72 24 142/69 94 10/08/16 04:00 99.1 72 24 137/73 94 10/08/16 03:00 72 24 151/67 94 10/08/16 02:00 74 24 136/76 92 10/08/16 01:00 72 24 136/58 92 10/08/16 00:00 83 24 146/70 93 10/07/16 23:00 74 24 137/64 92 10/07/16 22:00 77 24 125/63 93 10/07/16 22:00 75 10/07/16 21:00 75 24 122/61 92 10/07/16 21:00 74 10/07/16 20:30 78 10/07/16 20:15 98.2 78 24 119/60 93 10/07/16 19:25 94 Nasal Cannula 2.00 10/07/16 19:07 98.3 75 18 135/65 94 Nasal Cannula 2 I/O 10/07/16 10/07/16 10/07/16 10/08/16 10/08/16 10/08/16 06:59 14:59 22:59 06:59 14:59 22:59 Intake Total 1924 ml 1258 ml 1531 ml Output Total 500 ml 1100 ml Balance 1424 ml 158 ml 1531 ml Intake Oral 360 ml 262 ml 650 ml IV Total 1564 ml 996 ml 881 ml Output Urine Total 500 ml 1100 ml # Voids 1 # Bowel Movements 0 1 1 Result Diagram: 10/08/1645410/08/16454 Objective Remarks GENERAL: MBMN WF, weak, mild sob SKIN: Warm and dry. HEAD: Normocephalic. EYES: No scleral icterus. No injection or drainage. NECK: Supple, trachea midline. No JVD or lymphadenopathy. CARDIOVASCULAR: Regular rate and rhythm without murmurs, gallops, or rubs. RESPIRATORY: Breath sounds equal bilaterally. No accessory muscle use. Bilat rales. GASTROINTESTINAL: Abdomen soft, non-tender, nondistended. MUSCULOSKELETAL: No cyanosis, or edema. BACK: Nontender without obvious deformity. No CVA tenderness. A/P Assessment and Plan Bilat Pneumonia, likly CAP Resp insuff COPD HTN CAD, s/p CABG PLAN: Abx Rocephin and Zithro Aerosol nebs Supplement 02 Rpt cxr in AM Dw pt and her daughter at BS. Gaurav Rodriguez MD Oct 08, 2016 17:12
[2016-10-08] MEDS: ACETAMIN 325 MG/BUTALBITAL 50 MG/CAFFEINE 40 MG TAB PO PRN (19:05)
[2016-10-08] MEDS: AMITRIPTYLINE HCL 100 MG TAB PO SCH (20:51)
[2016-10-08] MEDS: PRAVASTATIN SOD 80 MG TAB PO SCH (20:51)
[2016-10-08] MEDS: RESP: ALBUTEROL 2.5 MG/IPRATROPIUM 0.5 MG NEB (PRN) NEB (23:37)
[2016-10-09] VITALS (33 sets, daily range): BP systolic 120–171; BP diastolic 59–93; PULSE 74–93; RESP 15–35; TEMP 97.9–99.7; O2SAT 9–97
[2016-10-09] MEDS: CHLORHEXIDINE GLUCONATE 2 % 1 PACK (2 CLOTHS)(taper/protocol) TOP SCH (02:44)
[2016-10-09] MEDS: ONDANSETRON HCL 4 MG/2 ML VIAL IVP PRN (02:57)
[2016-10-09 05:30] LABS: AUTOMATED NEUTROPHIL # 12.8 TH/MM3 (1.8-7.7); BASOPHIL % 0.1 % (0.0-2.0); EOSINOPHIL % 0.1 % (0.0-4.0); HEMATOCRIT 33.2 % (35.0-46.0); LYMPH % 3.9 % (9.0-44.0); LYMPHOCYTE # 0.5 TH/MM3 (1.0-4.8); MEAN CELL VOLUME 96.1 FL (80.0-100.0); MEAN CORPUSCULAR HGB CONC 34.4 % (32.0-36.0); MONO % 3.5 % (0.0-8.0); NEUT % 92.4 % (16.0-70.0); PLATELET COUNT 197 TH/MM3 (150-450); RED BLOOD COUNT 3.46 MIL/MM3 (4.00-5.30); RED CELL DISTRIBUTION WIDTH 12.9 % (11.6-17.2); WHITE BLOOD COUNT 13.8 TH/MM3 (4.0-11.0)
[2016-10-09 05:37] LABS: POTASSIUM 3.6 MEQ/L (3.5-5.1)
[2016-10-09 05:40] LABS: BICARBONATE 23.8 MEQ/L (21.0-32.0); MAGNESIUM 2.1 MG/DL (1.5-2.5)
[2016-10-09 06:15] LABS: HEMO FLAGS DIFF FINAL
[2016-10-09] MEDS: NS + KCL 20 MEQ INJ 1,000 ML IV SCH ×3 (06:19→20:59)
--- NOTE | 2016-10-09 06:47 | RADHPO ---
EXAM DATE/TIME: 10/09/2016 06:17 [facility] COMPARISON: CT THORAX W/O CONTRAST, October 07, 2016, 14:47. CHEST SINGLE AP, October 07, 2016, 13:34. INDICATIONS : Shortness of breath.. Followup multi-lobar consolidation. MEDICAL HISTORY : Hypertension. Chronic obstructive pulmonary disease. Cardiovascular disease. Diverticulitis. SURGICAL HISTORY : Hysterectomy. Inguinal hernia repair. CABG. ENCOUNTER: Subsequent ACUITY: 3 days PAIN SCORE: 0/10 LOCATION: Bilateral chest FINDINGS: A single AP semierect view of the chest was obtained and again demonstrates consolidative infiltrate in the right upper lobe, left upper lobe and lung bases. This does not appear significantly changed a nd the patient is status post median sternotomy for bypass grafting procedure. The heart size is mild ly prominent. Atherosclerotic calcifications are present in the aorta. There is no effusion. There ar e multiple overlying electrocardiogram leads. CONCLUSION: No significant change in the bilateral infiltrates. Randy Armas MD on October 09, 2016 at 6:45 Board Certified Radiologist. This report was verified electronically.
[2016-10-09] MEDS: RESP: ALBUTEROL 2.5 MG/IPRATROPIUM 0.5 MG NEB (SCH) NEB ×4 (07:19→20:08)
[2016-10-09] MEDS: VERAPAMIL HCL 240 MG SUSTAINED RELEASE TAB PO SCH ×2 (07:50→20:59)
[2016-10-09] MEDS: CYANOCOBALAMIN 1,000 MCG TAB PO SCH (07:50)
[2016-10-09] MEDS: HEPARIN SODIUM - SQ 10,000 UNITS/ML VIAL SQ SCH ×2 (07:50→21:00)
[2016-10-09] MEDS: MULTIVITAMIN TAB PO SCH (07:50)
[2016-10-09] MEDS: ASPIRIN 325 MG TAB PO SCH (07:50)
[2016-10-09] MEDS: guaiFENesin E.R. 600 MG TAB PO SCH ×2 (07:50→20:59)
--- NOTE | 2016-10-09 08:18 | HHI.PR ---
Subjective Remarks Received call from nurse reporting that the patient was more short of breath, wheezing, and hypoxic. Requiring 6L. the patient states that she feels "rough". She had a bad night and did not sleep well. Feels short of breath. Has been coughing, nonproductive. Reports chest pain with coughing. Objective Vitals Vital Signs Date Time Temp Pulse Resp B/P Pulse Ox O2 Delivery O2 Flow Rate FiO2 10/09/16 07:22 92 Nasal Cannula 4.00 10/09/16 07:00 80 15 120/78 94 10/09/16 06:00 84 10/09/16 06:00 84 28 171/84 93 10/09/16 05:00 80 28 162/93 94 10/09/16 04:40 82 28 154/71 92 10/09/16 04:00 82 10/09/16 03:00 80 32 167/82 93 10/09/16 02:00 82 10/09/16 02:00 82 32 160/76 95 10/09/16 01:00 84 28 142/75 92 10/09/16 00:00 97.9 74 28 126/59 93 10/09/16 00:00 74 10/08/16 23:00 74 28 142/64 92 10/08/16 22:00 74 10/08/16 22:00 74 30 142/61 93 10/08/16 21:00 88 23 149/75 90 10/08/16 20:00 73 10/08/16 20:00 93 Nasal Cannula 3.00 10/08/16 20:00 98.0 76 23 133/61 93 10/08/16 19:00 72 23 139/56 94 10/08/16 18:00 71 23 144/67 97 10/08/16 17:00 77 24 144/67 95 10/08/16 16:00 99.0 76 26 138/59 94 10/08/16 15:00 75 28 148/65 95 10/08/16 14:00 83 27 132/69 94 10/08/16 13:00 84 26 166/80 95 10/08/16 12:00 98.9 84 23 152/67 92 10/08/16 11:30 73 10/08/16 11:00 78 23 163/78 92 10/08/16 10:00 77 24 94 10/08/16 09:00 80 26 132/65 94 I/O 10/08/16 10/08/16 10/08/16 10/09/16 10/09/16 10/09/16 07:00 15:00 23:00 07:00 15:00 23:00 Intake Total 1258 ml 1531 ml 419 ml 800 ml Output Total 1100 ml 500 ml 300 ml Balance 158 ml 1531 ml -81 ml 500 ml Intake Oral 262 ml 650 ml 120 ml 240 ml IV Total 996 ml 881 ml 299 ml 560 ml Output Urine Total 1100 ml 500 ml 300 ml # Bowel Movements 1 1 1 0 Result Diagram: 10/09/16 0500 10/09/16 0500 Imaging Last Impressions Chest X-Ray 10/09/16 0600 Signed Impressions: Service Date/Time: Sunday, October 09, 2016 06:17 - CONCLUSION: No significant change in the bilateral infiltrates. Randy Armas MD Chest CT 10/07/16 0000 Signed Impressions: Service Date/Time: Friday, October 07, 2016 14:47 - CONCLUSION: 1. Multilobar consolidation greater in the upper lobes likely pneumonia. Treatment and followup to resolution. 2. Status post CABG. Justen Keen MD Objective Remarks General: No acute distress. Heart: Regular rate and rhythm. No murmur. Lungs: Diffuse rhonchi. Breathing is nonlabored. Abdomen: Soft, nontender, nondistended. Extremities: No lower extremity edema. Psych: Alert and oriented. Urinary Catheter: No Vascular Central Line Catheter: No A/P Problem List: (1) Bilateral pneumonia ICD Code: J18.9 Status: Acute (2) Hypoxia ICD Code: R09.02 Status: Acute (3) Lactic acid acidosis ICD Code: E87.2 Status: Acute (4) Febrile illness ICD Code: R50.9 Status: Acute (5) Hypertension ICD Code: I10 Status: Chronic (6) Hyperlipidemia ICD Code: E78.5 Status: Chronic (7) Chronic obstructive pulmonary disease ICD Code: J44.9 Status: Chronic (8) Gastroesophageal reflux ICD Code: K21.9 Status: Chronic Assessment and Plan 1. Bilateral multilobar pneumonia: Left upper lobe and right middle lobe consolidations noted on imaging. Repeat chest x-ray unchanged, images reviewed by me. Appreciate pulmonology recommendations. Continue Rocephin, azithromycin. Continue DuoNeb. Continue supplemental oxygen. Sputum culture ordered. Influenza negative. Legionella and pneumococcal antigen testing negative. Check ABG. Will use BiPAP if necessary today. 2. Febrile illness with lactic acidosis: Likely secondary to multilobar pneumonia. Tylenol as needed. Lactic acidosis resolved. Blood cultures are negative so far. 3. Hypertension: Continue home meds. 4. Hyperlipidemia: Continue statin. 5. Coronary artery disease: Currently asymptomatic. Continue home medications. 6. Hypokalemia: Improved. 7. DVT prophylaxis: Heparin. Problem Qualifiers (1) Bilateral pneumonia: Qualified Code: J18.9 - Pneumonia of both lungs due to infectious organism, unspecified part of lung (2) Hypertension: Qualified Code: I15.9 - Secondary hypertension (3) Hyperlipidemia: Qualified Code: E78.5 - Hyperlipidemia, unspecified hyperlipidemia type (4) Chronic obstructive pulmonary disease: Qualified Code: J44.9 - Chronic obstructive pulmonary disease, unspecified COPD type (5) Gastroesophageal reflux: Qualified Code: K21.9 - Gastroesophageal reflux disease, esophagitis presence not specified Samuel Vincent MD Oct 09, 2016 08:17
[2016-10-09 09:01] LABS: BLOOD GAS BASE EXCESS -0.9 mmol/L (-2-2); BLOOD GAS CARBOXYHEMOGLOBIN 1.2 % (0-4); BLOOD GAS HCO3 23 mmol/L (22-26); BLOOD GAS METHEMOGLOBIN 0.6 % (0-2); BLOOD GAS O2 HGB SATURATION 91 % (90-100); BLOOD GAS OXYGEN CONTENT 15.3 Vol % (12.0-20.0); BLOOD GAS PCO2 36 mmHg (38-42); BLOOD GAS PO2 61 mmHg (61-120); CRITICAL VALUE NO; FIO2 44 %; LITER FLOW 6 L/M; OXYGEN DEVICE NASAL CANNULA
[2016-10-09 09:02] LABS: DRAW SITE RT RADIAL; NUMBER OF ARTERIAL PUNCTURES 1; STAT YES; ULNAR PULSE PRESENT
[2016-10-09] MEDS: cefTRIAXone INJ 1,000 MG in SODIUM CHLORIDE 0.9% INJ 100 ML IV SCH (13:00)
[2016-10-09] MEDS: AZITHROMYCIN INJ 250 MG in SODIUM CHLOR 0.9% 250 ML INJ 250 ML IV SCH (13:32)
[2016-10-09] MEDS: PRAVASTATIN SOD 80 MG TAB PO SCH (20:59)
[2016-10-09] MEDS: AMITRIPTYLINE HCL 100 MG TAB PO SCH (20:59)
--- NOTE | 2016-10-09 21:10 | HHI.PR ---
Subjective Remarks 71 YOWF with Bilat Pn, resp insuff Up in chair No Fever On BIPAP, fi02 50% Desaturates Objective Vital Signs Vital Signs Date Time Temp Pulse Resp B/P Pulse Ox O2 Delivery O2 Flow Rate FiO2 10/09/16 18:00 99.3 90 28 130/68 91 10/09/16 18:00 93 10/09/16 17:14 85 26 91 10/09/16 16:00 86 10/09/16 16:00 166/79 10/09/16 15:18 95 40 10/09/16 15:00 88 28 161/88 92 10/09/16 14:00 99.0 86 28 165/87 9 10/09/16 14:00 84 10/09/16 13:00 86 27 96 10/09/16 12:50 94 Nasal Cannula 5.00 10/09/16 12:00 84 10/09/16 12:00 99.3 84 26 139/74 96 10/09/16 11:05 95 40 10/09/16 11:00 87 26 158/83 95 10/09/16 10:00 82 10/09/16 10:00 81 29 165/84 96 10/09/16 09:00 84 27 97 10/09/16 08:40 95 40 10/09/16 08:00 81 10/09/16 08:00 81 28 141/75 92 10/09/16 07:22 92 Nasal Cannula 4.00 10/09/16 07:00 80 15 120/78 94 10/09/16 06:00 84 10/09/16 06:00 84 28 171/84 93 10/09/16 05:00 80 28 162/93 94 10/09/16 04:40 82 28 154/71 92 10/09/16 04:00 82 10/09/16 03:00 80 32 167/82 93 10/09/16 02:00 82 10/09/16 02:00 82 32 160/76 95 10/09/16 01:00 84 28 142/75 92 10/09/16 00:00 97.9 74 28 126/59 93 10/09/16 00:00 74 10/08/16 23:00 74 28 142/64 92 10/08/16 22:00 74 10/08/16 22:00 74 30 142/61 93 I/O 10/08/16 10/08/16 10/08/16 10/09/16 10/09/16 10/09/16 07:00 15:00 23:00 07:00 15:00 23:00 Intake Total 1258 ml 1531 ml 419 ml 800 ml 923 ml Output Total 1100 ml 500 ml 300 ml 550 ml Balance 158 ml 1531 ml -81 ml 500 ml 373 ml Intake Oral 262 ml 650 ml 120 ml 240 ml 240 ml IV Total 996 ml 881 ml 299 ml 560 ml 683 ml Output Urine Total 1100 ml 500 ml 300 ml 550 ml # Bowel Movements 1 1 1 0 0 Result Diagram: 10/09/16 0500 10/09/16 0500 Objective Remarks GENERAL: MBMN WF, weak, mild sob SKIN: Warm and dry. HEAD: Normocephalic. EYES: No scleral icterus. No injection or drainage. NECK: Supple, trachea midline. No JVD or lymphadenopathy. CARDIOVASCULAR: Regular rate and rhythm without murmurs, gallops, or rubs. RESPIRATORY: Breath sounds equal bilaterally. No accessory muscle use. Bilat rales. GASTROINTESTINAL: Abdomen soft, non-tender, nondistended. MUSCULOSKELETAL: No cyanosis, or edema. BACK: Nontender without obvious deformity. No CVA tenderness. A/P Assessment and Plan Bilat Pneumonia, likly CAP Resp insuff COPD HTN CAD, s/p CABG PLAN: Abx Rocephin and Zithro Aerosol nebs Supplement 02 Rpt cxr in AM Bipap at night Keep sat >90% Gaurav Rodriguez MD Oct 09, 2016 21:10
[2016-10-10] VITALS (29 sets, daily range): BP systolic 108–164; BP diastolic 38–80; PULSE 75–96; RESP 20–36; TEMP 97.9–99; O2SAT 88–97
[2016-10-10] MEDS: CHLORHEXIDINE GLUCONATE 2 % 1 PACK (2 CLOTHS)(taper/protocol) TOP SCH (04:00)
[2016-10-10] MEDS: RESP: ALBUTEROL 2.5 MG/IPRATROPIUM 0.5 MG NEB (SCH) NEB ×4 (07:48→19:33)
--- NOTE | 2016-10-10 08:08 | HHI.PR ---
Subjective Remarks Follow up respiratory failure, pneumonia. Patient states that she feels tired. Shortness of breath is about the same. No chest pain. Objective Vitals Vital Signs Date Time Temp Pulse Resp B/P Pulse Ox O2 Delivery O2 Flow Rate FiO2 10/10/16 07:52 91 Nasal Cannula 6.00 10/10/16 06:00 87 10/10/16 06:00 32 150/70 95 10/10/16 05:00 36 156/74 95 10/10/16 04:00 98.0 76 24 108/38 93 10/10/16 04:00 92 50 10/10/16 04:00 79 10/10/16 03:00 80 35 150/78 94 10/10/16 02:00 80 10/10/16 02:00 76 31 139/75 92 10/10/16 01:00 80 36 150/68 93 10/10/16 01:00 92 50 10/10/16 00:00 78 10/10/16 00:00 99.0 78 20 155/69 97 10/09/16 23:00 99.0 21 155/69 97 10/09/16 22:15 93 50 10/09/16 22:00 84 10/09/16 22:00 30 145/74 95 10/09/16 21:00 35 155/80 95 10/09/16 20:10 90 Nasal Cannula 6.00 10/09/16 20:00 83 10/09/16 20:00 99.7 83 20 159/75 94 10/09/16 19:20 94 50 10/09/16 19:00 34 138/76 92 10/09/16 18:00 99.3 90 28 130/68 91 10/09/16 18:00 93 10/09/16 17:14 85 26 91 10/09/16 16:00 86 10/09/16 16:00 166/79 10/09/16 15:18 95 40 10/09/16 15:00 88 28 161/88 92 10/09/16 14:00 99.0 86 28 165/87 9 10/09/16 14:00 84 10/09/16 13:00 86 27 96 10/09/16 12:50 94 Nasal Cannula 5.00 10/09/16 12:00 84 10/09/16 12:00 99.3 84 26 139/74 96 10/09/16 11:05 95 40 10/09/16 11:00 87 26 158/83 95 10/09/16 10:00 82 10/09/16 10:00 81 29 165/84 96 10/09/16 09:00 84 27 97 10/09/16 08:40 95 40 I/O 10/09/16 10/09/16 10/09/16 10/10/16 10/10/16 10/10/16 07:00 15:00 23:00 07:00 15:00 23:00 Intake Total 800 ml 923 ml 836 ml 693 ml Output Total 300 ml 550 ml 600 ml 45 ml Balance 500 ml 373 ml 236 ml 648 ml Intake Oral 240 ml 240 ml 120 ml 30 ml IV Total 560 ml 683 ml 716 ml 663 ml Output Urine Total 300 ml 550 ml 600 ml 45 ml # Bowel Movements 0 0 0 0 Result Diagram: 10/09/16 0500 10/09/16 0500 Imaging Last Impressions Chest X-Ray 10/09/16 0600 Signed Impressions: Service Date/Time: Sunday, October 09, 2016 06:17 - CONCLUSION: No significant change in the bilateral infiltrates. Randy Armas MD Chest CT 10/07/16 0000 Signed Impressions: Service Date/Time: Friday, October 07, 2016 14:47 - CONCLUSION: 1. Multilobar consolidation greater in the upper lobes likely pneumonia. Treatment and followup to resolution. 2. Status post CABG. Justen Keen MD Objective Remarks General: No acute distress. Heart: Regular rate and rhythm. No murmur. Lungs: Diffuse rhonchi, wheeze. Breathing is nonlabored. Abdomen: Soft, nontender, nondistended. Extremities: No lower extremity edema. SCDs. Psych: Alert and oriented. Urinary Catheter: No Vascular Central Line Catheter: No A/P Problem List: (1) Bilateral pneumonia ICD Code: J18.9 Status: Acute (2) Hypoxia ICD Code: R09.02 Status: Acute (3) Lactic acid acidosis ICD Code: E87.2 Status: Acute (4) Febrile illness ICD Code: R50.9 Status: Acute (5) Hypertension ICD Code: I10 Status: Chronic (6) Hyperlipidemia ICD Code: E78.5 Status: Chronic (7) Chronic obstructive pulmonary disease ICD Code: J44.9 Status: Chronic (8) Gastroesophageal reflux ICD Code: K21.9 Status: Chronic (9) Acute respiratory failure ICD Code: J96.00 Status: Acute Assessment and Plan 1. Bilateral multilobar pneumonia, acute respiratory failure: Left upper lobe and right middle lobe consolidations noted on imaging. Repeat chest x-ray ordered. Appreciate pulmonology recommendations. Continue Rocephin, azithromycin. Continue DuoNeb. Continue supplemental oxygen. Sputum culture growing normal respiratory john. Influenza negative. Legionella and pneumococcal antigen testing negative. Check ABG. Continue BiPAP. 2. Febrile illness with lactic acidosis: Likely secondary to multilobar pneumonia. Tylenol as needed. Lactic acidosis resolved. Blood cultures are negative so far. Patient now afebrile. 3. Hypertension: Continue home meds. 4. Hyperlipidemia: Continue statin. 5. Coronary artery disease: Currently asymptomatic. Continue home medications. 6. Hypokalemia: Improved. 7. DVT prophylaxis: Heparin. Problem Qualifiers (1) Bilateral pneumonia: Qualified Code: J18.9 - Pneumonia of both lungs due to infectious organism, unspecified part of lung (2) Hypertension: Qualified Code: I15.9 - Secondary hypertension (3) Hyperlipidemia: Qualified Code: E78.5 - Hyperlipidemia, unspecified hyperlipidemia type (4) Chronic obstructive pulmonary disease: Qualified Code: J44.9 - Chronic obstructive pulmonary disease, unspecified COPD type (5) Gastroesophageal reflux: Qualified Code: K21.9 - Gastroesophageal reflux disease, esophagitis presence not specified Samuel Vincent MD Oct 10, 2016 08:08
[2016-10-10] MEDS: NS + KCL 20 MEQ INJ 1,000 ML IV SCH (08:18)
[2016-10-10] MEDS: methylPREDNISolone SOD SUCC 40 MG/1 ML VIAL IV PUSH SCH ×3 (08:18→20:54)
[2016-10-10 08:31] LABS: AUTOMATED NEUTROPHIL # 14.2 TH/MM3 (1.8-7.7); BASOPHIL # 0.1 TH/MM3 (0-0.2); BASOPHIL % 0.5 % (0.0-2.0); HEMATOCRIT 34.6 % (35.0-46.0); LYMPH % 4.4 % (9.0-44.0); LYMPHOCYTE # 0.7 TH/MM3 (1.0-4.8); MEAN CELL VOLUME 96.3 FL (80.0-100.0); MEAN CORPUSCULAR HEMOGLOBIN 32.8 PG (27.0-34.0); MEAN CORPUSCULAR HGB CONC 34.1 % (32.0-36.0); NEUT % 92.1 % (16.0-70.0); PLATELET COUNT 187 TH/MM3 (150-450); RED BLOOD COUNT 3.59 MIL/MM3 (4.00-5.30); RED CELL DISTRIBUTION WIDTH 13.4 % (11.6-17.2); WHITE BLOOD COUNT 15.5 TH/MM3 (4.0-11.0)
[2016-10-10 08:32] LABS: HEMO FLAGS DIFF FINAL
[2016-10-10 08:35] LABS: BLOOD GAS BASE EXCESS -0.9 mmol/L (-2-2); BLOOD GAS CARBOXYHEMOGLOBIN 1.2 % (0-4); BLOOD GAS HCO3 23 mmol/L (22-26); BLOOD GAS METHEMOGLOBIN 0.5 % (0-2); BLOOD GAS O2 HGB SATURATION 90 % (90-100); BLOOD GAS OXYGEN CONTENT 14.7 Vol % (12.0-20.0); BLOOD GAS PCO2 39 mmHg (38-42); BLOOD GAS PO2 59 mmHg (61-120); BLOOD GAS TOTAL HGB 11.7 G/DL (12.0-16.0); CRITICAL VALUE YES; DRAW SITE RT RADIAL; LITER FLOW 6 L/M; NUMBER OF ARTERIAL PUNCTURES 1; OXYGEN DEVICE NASAL CANNULA; STAT NO; ULNAR PULSE PRESENT
[2016-10-10] MEDS: HEPARIN SODIUM - SQ 10,000 UNITS/ML VIAL SQ SCH ×2 (09:49→20:54)
[2016-10-10] MEDS: guaiFENesin E.R. 600 MG TAB PO SCH ×2 (09:49→20:54)
[2016-10-10] MEDS: VERAPAMIL HCL 240 MG SUSTAINED RELEASE TAB PO SCH ×2 (09:49→20:53)
[2016-10-10] MEDS: ASPIRIN 325 MG TAB PO SCH (09:49)
[2016-10-10] MEDS: MULTIVITAMIN TAB PO SCH (09:49)
[2016-10-10] MEDS: CYANOCOBALAMIN 1,000 MCG TAB PO SCH (09:49)
[2016-10-10] MEDS: cefTRIAXone INJ 1,000 MG in SODIUM CHLORIDE 0.9% INJ 100 ML IV SCH (11:42)
[2016-10-10] MEDS: ONDANSETRON HCL 4 MG/2 ML VIAL IVP PRN (11:42)
[2016-10-10] MEDS: AZITHROMYCIN INJ 250 MG in SODIUM CHLOR 0.9% 250 ML INJ 250 ML IV SCH (13:30)
--- NOTE | 2016-10-10 14:13 | RADHPO ---
EXAM DATE/TIME: 10/10/2016 12:38 [facility] COMPARISON: CT THORAX W/O CONTRAST, October 07, 2016, 14:47. CHEST SINGLE AP, October 09, 2016, 6:17. INDICATIONS : Short of breath. MEDICAL HISTORY : Chronic obstructive pulmonary disease. Diverticulitis. Hypertension. cardiovascular disease SURGICAL HISTORY : Inguinal hernia repair. CABG. Hysterectomy. ENCOUNTER: Subsequent ACUITY: 4 - 6 days PAIN SCORE: 8/10 LOCATION: Bilateral upper chest FINDINGS: Portable AP view of the chest demonstrates a normal-sized cardiac silhouette in this patient post med johanna sternotomy and CABG. There is relatively diffuse bilateral patchy air space consolidation or that is most severe in the upper lung zones. It appears increased in the right upper lung zone. There is blunting of the left costophrenic sulcus. No pneumothorax is visualized. CONCLUSION: Diffuse patchy airspace consolidation bilaterally that is more severe in the upper lung zones and albin ears mildly increased in the right upper lobe. There is a small left pleural effusion also suspected. Jayme Katz MD on October 10, 2016 at 14:10 Board Certified Radiologist. This report was verified electronically.
--- NOTE | 2016-10-10 19:32 | HHI.PR ---
Subjective Remarks 71 YOWF with Bilat Pn, resp insuff Up in chair No Fever On BIPAP, fi02 50% Desaturates Not eating CXR worsening infilterates family at BS Objective Vital Signs Vital Signs Date Time Temp Pulse Resp B/P Pulse Ox O2 Delivery O2 Flow Rate FiO2 10/10/16 19:00 75 27 142/68 95 10/10/16 18:00 76 24 140/64 93 10/10/16 18:00 77 10/10/16 17:00 80 26 137/65 92 10/10/16 16:03 91 50 10/10/16 16:00 90 10/10/16 16:00 98.6 78 24 133/72 91 10/10/16 15:00 86 26 134/73 92 10/10/16 14:00 90 10/10/16 14:00 88 32 136/60 89 10/10/16 13:59 91 50 10/10/16 13:00 88 30 144/73 89 10/10/16 12:00 98.9 90 32 153/77 90 10/10/16 12:00 75 10/10/16 11:00 86 30 164/80 93 10/10/16 10:00 82 32 162/79 92 10/10/16 10:00 81 10/10/16 09:23 94 50 10/10/16 09:00 96 26 140/74 88 10/10/16 08:00 81 10/10/16 08:00 97.9 82 30 162/77 94 10/10/16 07:52 91 Nasal Cannula 6.00 10/10/16 07:00 80 25 158/70 94 10/10/16 06:00 87 10/10/16 06:00 32 150/70 95 10/10/16 05:00 36 156/74 95 10/10/16 04:00 98.0 76 24 108/38 93 10/10/16 04:00 92 50 10/10/16 04:00 79 10/10/16 03:00 80 35 150/78 94 10/10/16 02:00 80 10/10/16 02:00 76 31 139/75 92 10/10/16 01:00 80 36 150/68 93 10/10/16 01:00 92 50 10/10/16 00:00 78 10/10/16 00:00 99.0 78 20 155/69 97 10/09/16 23:00 99.0 21 155/69 97 10/09/16 22:15 93 50 10/09/16 22:00 84 10/09/16 22:00 30 145/74 95 10/09/16 21:00 35 155/80 95 10/09/16 20:10 90 Nasal Cannula 6.00 10/09/16 20:00 83 10/09/16 20:00 99.7 83 20 159/75 94 I/O 10/09/16 10/09/16 10/09/16 10/10/16 10/10/16 10/10/16 07:00 15:00 23:00 07:00 15:00 23:00 Intake Total 800 ml 923 ml 836 ml 693 ml 1245 ml Output Total 300 ml 550 ml 600 ml 45 ml 325 ml Balance 500 ml 373 ml 236 ml 648 ml 920 ml Intake Oral 240 ml 240 ml 120 ml 30 ml 200 ml IV Total 560 ml 683 ml 716 ml 663 ml 1045 ml Output Urine Total 300 ml 550 ml 600 ml 45 ml 325 ml # Voids 4 # Bowel Movements 0 0 0 0 0 Result Diagram: 10/10/16 0825 10/09/16 0500 Objective Remarks GENERAL: MBMN WF, weak, mild sob SKIN: Warm and dry. HEAD: Normocephalic. EYES: No scleral icterus. No injection or drainage. NECK: Supple, trachea midline. No JVD or lymphadenopathy. CARDIOVASCULAR: Regular rate and rhythm without murmurs, gallops, or rubs. RESPIRATORY: Breath sounds equal bilaterally. No accessory muscle use. Bilat rales. GASTROINTESTINAL: Abdomen soft, non-tender, nondistended. MUSCULOSKELETAL: No cyanosis, or edema. BACK: Nontender without obvious deformity. No CVA tenderness. A/P Assessment and Plan Bilat Pneumonia, likly CAP Resp insuff COPD HTN CAD, s/p CABG PLAN: Abx Rocephin and Zithro Aerosol nebs Supplement 02 Bipap at night and prn Keep sat >90% Change IVF to D5NS Check BMP,BNP in AM Ensure 1 can tid Gaurav Rodriguez MD Oct 10, 2016 19:32
[2016-10-10] MEDS: D5-NS + KCL 20 MEQ INJ 1,000 ML IV SCH (19:37)
[2016-10-10] MEDS: PRAVASTATIN SOD 80 MG TAB PO SCH (20:53)
[2016-10-10] MEDS: AMITRIPTYLINE HCL 100 MG TAB PO SCH (20:54)
[2016-10-11] VITALS (32 sets, daily range): BP systolic 120–169; BP diastolic 59–99; PULSE 71–94; RESP 21–37; TEMP 97.7–99.2; O2SAT 90–96
[2016-10-11] MEDS: RESP: ALBUTEROL 2.5 MG/IPRATROPIUM 0.5 MG NEB (PRN) NEB (02:25)
[2016-10-11] MEDS: methylPREDNISolone SOD SUCC 40 MG/1 ML VIAL IV PUSH SCH ×4 (02:26→21:00)
[2016-10-11] MEDS: LORazepam 2 MG/ML VIAL IVP PRN ×2 (02:37→23:24)
[2016-10-11] MEDS: CHLORHEXIDINE GLUCONATE 2 % 1 PACK (2 CLOTHS)(taper/protocol) TOP SCH (02:39)
[2016-10-11 05:00] LABS: AUTOMATED NEUTROPHIL # 9.5 TH/MM3 (1.8-7.7); BASOPHIL # 0.1 TH/MM3 (0-0.2); BASOPHIL % 0.5 % (0.0-2.0); LYMPH % 3.3 % (9.0-44.0); LYMPHOCYTE # 0.3 TH/MM3 (1.0-4.8); MEAN CELL VOLUME 97.4 FL (80.0-100.0); MEAN CORPUSCULAR HEMOGLOBIN 32.9 PG (27.0-34.0); MEAN CORPUSCULAR HGB CONC 33.8 % (32.0-36.0); MONO % 3.7 % (0.0-8.0); NEUT % 92.5 % (16.0-70.0); PLATELET COUNT 219 TH/MM3 (150-450); RED BLOOD COUNT 3.38 MIL/MM3 (4.00-5.30); RED CELL DISTRIBUTION WIDTH 12.8 % (11.6-17.2); WHITE BLOOD COUNT 10.3 TH/MM3 (4.0-11.0)
[2016-10-11 05:03] LABS: HEMO FLAGS DIFF FINAL
[2016-10-11 05:04] LABS: POTASSIUM 3.9 MEQ/L (3.5-5.1)
[2016-10-11 05:08] LABS: BICARBONATE 24.7 MEQ/L (21.0-32.0)
[2016-10-11] MEDS: D5-NS + KCL 20 MEQ INJ 1,000 ML IV SCH ×2 (06:20→20:59)
[2016-10-11] MEDS: RESP: ALBUTEROL 2.5 MG/IPRATROPIUM 0.5 MG NEB (SCH) NEB ×4 (07:31→19:35)
--- NOTE | 2016-10-11 08:36 | HHI.PR ---
Subjective Remarks Follow-up pneumonia, respiratory failure. Patient is currently off BiPAP and states that she feels a little bit better. She was on BiPAP most of the night. Still wheezing and coughing. Objective Vitals Vital Signs Date Time Temp Pulse Resp B/P Pulse Ox O2 Delivery O2 Flow Rate FiO2 10/11/16 07:35 95 50 10/11/16 06:00 83 32 144/69 96 10/11/16 06:00 80 10/11/16 05:00 80 26 147/75 95 10/11/16 04:11 92 50 10/11/16 04:00 97.7 76 29 148/89 93 10/11/16 04:00 80 10/11/16 03:00 25 125/67 92 10/11/16 02:39 93 50 10/11/16 02:30 92 Bi-Pap 50 10/11/16 02:00 74 23 145/74 96 10/11/16 02:00 71 10/11/16 01:00 74 25 135/70 96 10/11/16 00:22 96 Non-Rebreather 15.00 10/11/16 00:00 75 10/11/16 00:00 97.8 75 27 141/72 96 10/10/16 23:30 93 Partial Non-Rebreather 10/10/16 23:00 99.0 76 27 145/74 95 10/10/16 22:10 93 50 10/10/16 22:00 88 32 141/69 93 10/10/16 22:00 81 10/10/16 20:00 78 10/10/16 20:00 92 Bi-Pap 50 10/10/16 20:00 98.5 83 32 140/67 94 10/10/16 19:29 95 50 10/10/16 19:00 75 27 142/68 95 10/10/16 18:00 76 24 140/64 93 10/10/16 18:00 77 10/10/16 17:00 80 26 137/65 92 10/10/16 16:03 91 50 10/10/16 16:00 90 10/10/16 16:00 98.6 78 24 133/72 91 10/10/16 15:00 86 26 134/73 92 10/10/16 14:00 90 10/10/16 14:00 88 32 136/60 89 10/10/16 13:59 91 50 10/10/16 13:00 88 30 144/73 89 10/10/16 12:00 98.9 90 32 153/77 90 10/10/16 12:00 75 10/10/16 11:00 86 30 164/80 93 10/10/16 10:00 82 32 162/79 92 10/10/16 10:00 81 10/10/16 09:23 94 50 10/10/16 09:00 96 26 140/74 88 I/O 10/10/16 10/10/16 10/10/16 10/11/16 10/11/16 10/11/16 07:00 15:00 23:00 07:00 15:00 23:00 Intake Total 693 ml 1245 ml 625 ml 682 ml Output Total 45 ml 325 ml 400 ml 350 ml Balance 648 ml 920 ml 225 ml 332 ml Intake Oral 30 ml 200 ml 120 ml 30 ml IV Total 663 ml 1045 ml 505 ml 652 ml Output Urine Total 45 ml 325 ml 400 ml 350 ml # Voids 4 # Bowel Movements 0 0 0 0 Result Diagram: 10/11/16 0440 10/11/16 0440 Imaging Last Impressions Chest X-Ray 10/10/16 0000 Signed Impressions: Service Date/Time: September 12:38 - CONCLUSION: Diffuse patchy airspace consolidation bilaterally that is more severe in the upper lung zones and appears mildly increased in the right upper lobe. There is a small left pleural effusion also suspected. Jayme Katz MD Chest CT 10/07/16 0000 Signed Impressions: Service Date/Time: Friday, October 07, 2016 14:47 - CONCLUSION: 1. Multilobar consolidation greater in the upper lobes likely pneumonia. Treatment and followup to resolution. 2. Status post CABG. Justen Keen MD Objective Remarks General: No acute distress. Heart: Regular rate and rhythm. No murmur. Lungs: Diffuse rhonchi, wheeze. Breathing is nonlabored. Abdomen: Soft, nontender, nondistended. Extremities: No lower extremity edema. SCDs. Psych: Alert and oriented. Urinary Catheter: No Vascular Central Line Catheter: No A/P Problem List: (1) Bilateral pneumonia ICD Code: J18.9 Status: Acute (2) Hypoxia ICD Code: R09.02 Status: Acute (3) Lactic acid acidosis ICD Code: E87.2 Status: Acute (4) Febrile illness ICD Code: R50.9 Status: Acute (5) Hypertension ICD Code: I10 Status: Chronic (6) Hyperlipidemia ICD Code: E78.5 Status: Chronic (7) Chronic obstructive pulmonary disease ICD Code: J44.9 Status: Chronic (8) Gastroesophageal reflux ICD Code: K21.9 Status: Chronic (9) Acute respiratory failure ICD Code: J96.00 Status: Acute Assessment and Plan 1. Bilateral multilobar pneumonia, acute respiratory failure: Left upper lobe and right middle lobe consolidations noted on imaging. Repeat chest x-ray report noted. Appreciate pulmonology recommendations. Continue Rocephin, azithromycin. Continue DuoNeb. Continue supplemental oxygen. Sputum culture growing normal respiratory john. Influenza negative. Legionella and pneumococcal antigen testing negative. Check ABG. Continue BiPAP. 2. Febrile illness with lactic acidosis: Likely secondary to multilobar pneumonia. Tylenol as needed. Lactic acidosis resolved. Blood cultures are negative so far. Patient remains afebrile. 3. Hypertension: Continue home meds. 4. Hyperlipidemia: Continue statin. 5. Coronary artery disease: Currently asymptomatic. Continue home medications. 6. Hypokalemia: Improved. 7. DVT prophylaxis: Heparin. Problem Qualifiers (1) Bilateral pneumonia: Qualified Code: J18.9 - Pneumonia of both lungs due to infectious organism, unspecified part of lung (2) Hypertension: Qualified Code: I15.9 - Secondary hypertension (3) Hyperlipidemia: Qualified Code: E78.5 - Hyperlipidemia, unspecified hyperlipidemia type (4) Chronic obstructive pulmonary disease: Qualified Code: J44.9 - Chronic obstructive pulmonary disease, unspecified COPD type (5) Gastroesophageal reflux: Qualified Code: K21.9 - Gastroesophageal reflux disease, esophagitis presence not specified Samuel Vincent MD Oct 11, 2016 08:36
[2016-10-11] MEDS: VERAPAMIL HCL 240 MG SUSTAINED RELEASE TAB PO SCH ×2 (08:58→21:00)
[2016-10-11] MEDS: MULTIVITAMIN TAB PO SCH (08:58)
[2016-10-11] MEDS: guaiFENesin E.R. 600 MG TAB PO SCH ×2 (08:58→21:00)
[2016-10-11] MEDS: ASPIRIN 325 MG TAB PO SCH (08:58)
[2016-10-11] MEDS: CYANOCOBALAMIN 1,000 MCG TAB PO SCH (08:58)
[2016-10-11] MEDS: HEPARIN SODIUM - SQ 10,000 UNITS/ML VIAL SQ SCH ×2 (08:59→21:00)
[2016-10-11] MEDS: cefTRIAXone INJ 1,000 MG in SODIUM CHLORIDE 0.9% INJ 100 ML IV SCH (12:32)
[2016-10-11] MEDS: AZITHROMYCIN INJ 250 MG in SODIUM CHLOR 0.9% 250 ML INJ 250 ML IV SCH (13:57)
--- NOTE | 2016-10-11 18:43 | HHI.PR ---
Subjective Remarks 71 YOWF with Bilat Pn, resp insuff Up in chair No Fever Weaned to NC, feels much better Desaturates Not eating CXR worsening infilterates Objective Vital Signs Vital Signs Date Time Temp Pulse Resp B/P Pulse Ox O2 Delivery O2 Flow Rate FiO2 10/11/16 18:00 88 35 153/76 91 10/11/16 18:00 88 10/11/16 17:01 86 35 140/72 91 10/11/16 16:00 99.2 84 25 120/69 92 10/11/16 16:00 92 Nasal Cannula 6.00 10/11/16 16:00 84 10/11/16 15:01 90 37 138/72 90 10/11/16 14:01 82 31 146/67 94 10/11/16 14:00 82 10/11/16 13:01 88 27 141/77 92 10/11/16 12:01 98.4 82 21 128/59 92 10/11/16 12:00 84 10/11/16 11:01 78 27 156/82 94 10/11/16 10:00 82 30 161/80 94 10/11/16 10:00 82 10/11/16 09:00 82 31 143/71 91 10/11/16 08:00 91 Nasal Cannula 6.00 10/11/16 08:00 9 Nasal Cannula 6.00 10/11/16 08:00 98.6 86 25 146/73 91 10/11/16 08:00 78 10/11/16 07:35 95 50 10/11/16 07:00 74 25 138/69 96 10/11/16 06:00 83 32 144/69 96 10/11/16 06:00 80 10/11/16 05:00 80 26 147/75 95 10/11/16 04:11 92 50 10/11/16 04:00 97.7 76 29 148/89 93 10/11/16 04:00 80 10/11/16 03:00 25 125/67 92 10/11/16 02:39 93 50 10/11/16 02:30 92 Bi-Pap 50 10/11/16 02:00 74 23 145/74 96 10/11/16 02:00 71 10/11/16 01:00 74 25 135/70 96 10/11/16 00:22 96 Non-Rebreather 15.00 10/11/16 00:00 75 10/11/16 00:00 97.8 75 27 141/72 96 10/10/16 23:30 93 Partial Non-Rebreather 10/10/16 23:00 99.0 76 27 145/74 95 10/10/16 22:10 93 50 10/10/16 22:00 88 32 141/69 93 10/10/16 22:00 81 10/10/16 20:00 78 10/10/16 20:00 92 Bi-Pap 50 10/10/16 20:00 98.5 83 32 140/67 94 10/10/16 19:29 95 50 10/10/16 19:00 75 27 142/68 95 I/O 10/10/16 10/10/16 10/10/16 10/11/16 10/11/16 10/11/16 06:59 14:59 22:59 06:59 14:59 22:59 Intake Total 693 ml 1245 ml 625 ml 682 ml 1903 ml Output Total 45 ml 325 ml 400 ml 350 ml 300 ml Balance 648 ml 920 ml 225 ml 332 ml 1603 ml Intake Oral 30 ml 200 ml 120 ml 30 ml 520 ml IV Total 663 ml 1045 ml 505 ml 652 ml 1383 ml Output Urine Total 45 ml 325 ml 400 ml 350 ml 300 ml # Voids 4 # Bowel Movements 0 0 0 0 1 Result Diagram: 10/11/1643910/11/16439 Objective Remarks GENERAL: MBMN WF, weak, mild sob SKIN: Warm and dry. HEAD: Normocephalic. EYES: No scleral icterus. No injection or drainage. NECK: Supple, trachea midline. No JVD or lymphadenopathy. CARDIOVASCULAR: Regular rate and rhythm without murmurs, gallops, or rubs. RESPIRATORY: Breath sounds equal bilaterally. No accessory muscle use. Bilat rales. GASTROINTESTINAL: Abdomen soft, non-tender, nondistended. MUSCULOSKELETAL: No cyanosis, or edema. BACK: Nontender without obvious deformity. No CVA tenderness. A/P Assessment and Plan Bilat Pneumonia, likly CAP Resp insuff COPD HTN CAD, s/p CABG PLAN: Abx Rocephin and Zithro Aerosol nebs Supplement 02 Bipap at night and prn Keep sat >90% IVF to D5NS Ensure 1 can tid BIPAP at night and PRN sob Gaurav oRdriguez MD Oct 11, 2016 18:43
[2016-10-11] MEDS: AMITRIPTYLINE HCL 100 MG TAB PO SCH (21:00)
[2016-10-11] MEDS: PRAVASTATIN SOD 80 MG TAB PO SCH (21:00)
[2016-10-12] VITALS (52 sets, daily range): BP systolic 118–182; BP diastolic 78–114; PULSE 82–114; RESP 20–37; TEMP 97.4–98.3; O2SAT 88–96
[2016-10-12] MEDS: methylPREDNISolone SOD SUCC 40 MG/1 ML VIAL IV PUSH SCH ×4 (03:05→20:52)
[2016-10-12] MEDS: CHLORHEXIDINE GLUCONATE 2 % 1 PACK (2 CLOTHS)(taper/protocol) TOP SCH (03:06)
[2016-10-12] MEDS: RESP: ALBUTEROL 2.5 MG/IPRATROPIUM 0.5 MG NEB (SCH) NEB ×4 (07:27→19:18)
[2016-10-12] MEDS: D5-NS + KCL 20 MEQ INJ 1,000 ML IV SCH ×2 (08:04→21:00)
[2016-10-12] MEDS: CYANOCOBALAMIN 1,000 MCG TAB PO SCH (08:05)
[2016-10-12] MEDS: guaiFENesin E.R. 600 MG TAB PO SCH ×2 (08:05→20:53)
[2016-10-12] MEDS: ASPIRIN 325 MG TAB PO SCH (08:05)
[2016-10-12] MEDS: VERAPAMIL HCL 240 MG SUSTAINED RELEASE TAB PO SCH ×2 (08:05→20:53)
[2016-10-12] MEDS: MULTIVITAMIN TAB PO SCH (08:05)
[2016-10-12] MEDS: HEPARIN SODIUM - SQ 10,000 UNITS/ML VIAL SQ SCH ×2 (08:06→20:52)
[2016-10-12] MEDS: RESP: ALBUTEROL 2.5 MG/IPRATROPIUM 0.5 MG NEB (PRN) NEB ×2 (09:19→22:17)
[2016-10-12] MEDS: BENZONATATE 100 MG CAP PO PRN ×3 (09:25→23:54)
[2016-10-12] MEDS: LORazepam 2 MG/ML VIAL IVP PRN (09:26)
[2016-10-12] MEDS: ACETAMINOPHEN 325 MG TAB PO PRN ×2 (09:26→18:00)
--- NOTE | 2016-10-12 10:52 | HHI.PR ---
Subjective Remarks Follow-up pneumonia, respiratory failure. Patient was placed back on BiPAP this morning. She had a "panic attack" and had desaturation. Denies chest pain. Some nausea, but no vomiting. Objective Vitals Vital Signs Date Time Temp Pulse Resp B/P Pulse Ox O2 Delivery O2 Flow Rate FiO2 10/12/16 10:36 101 10/12/16 10:30 106 31 173/103 95 10/12/16 10:15 106 30 173/97 94 10/12/16 10:00 104 31 181/97 95 10/12/16 09:45 108 34 172/102 95 10/12/16 09:30 114 34 176/108 91 10/12/16 09:30 94 50 10/12/16 09:15 112 34 181/114 89 10/12/16 09:00 104 30 157/100 91 10/12/16 08:02 100 28 161/84 92 10/12/16 08:00 98.1 100 25 160/94 91 10/12/16 08:00 105 10/12/16 07:53 100 32 160/94 91 10/12/16 07:37 96 Bi-Pap 50 10/12/16 07:33 91 Nasal Cannula 6.00 10/12/16 07:30 92 31 93 10/12/16 07:00 90 28 159/97 95 10/12/16 06:00 92 20 158/89 95 10/12/16 06:00 83 10/12/16 05:00 90 20 156/79 94 10/12/16 04:11 95 50 10/12/16 04:00 97.4 90 24 128/88 95 10/12/16 04:00 90 10/12/16 03:00 90 24 154/88 95 10/12/16 02:00 82 24 153/80 96 10/12/16 02:00 90 10/12/16 01:08 96 50 10/12/16 01:00 92 24 126/78 96 10/12/16 00:00 97.5 96 28 155/80 96 10/12/16 00:00 83 10/11/16 23:00 94 24 169/99 94 10/11/16 22:00 88 28 169/92 95 10/11/16 22:00 93 10/11/16 21:30 95 12/30/16 21:20 94 50 10/11/16 21:00 94 26 167/83 95 10/11/16 20:00 92 10/11/16 20:00 92 28 150/72 92 10/11/16 19:35 93 Nasal Cannula 6.00 10/11/16 19:00 91 Nasal Cannula 6.00 10/11/16 19:00 97.7 90 28 149/78 93 10/11/16 18:00 88 35 153/76 91 10/11/16 18:00 88 10/11/16 17:01 86 35 140/72 91 10/11/16 16:00 99.2 84 25 120/69 92 10/11/16 16:00 92 Nasal Cannula 6.00 10/11/16 16:00 84 10/11/16 15:01 90 37 138/72 90 10/11/16 14:01 82 31 146/67 94 10/11/16 14:00 82 10/11/16 13:01 88 27 141/77 92 10/11/16 12:01 98.4 82 21 128/59 92 10/11/16 12:00 84 10/11/16 11:01 78 27 156/82 94 I/O 10/11/16 10/11/16 10/11/16 10/12/16 10/12/16 10/12/16 06:59 14:59 22:59 06:59 14:59 22:59 Intake Total 682 ml 1903 ml 1010 ml 878 ml Output Total 350 ml 300 ml 450 ml 600 ml Balance 332 ml 1603 ml 560 ml 278 ml Intake Oral 30 ml 520 ml 240 ml 200 ml IV Total 652 ml 1383 ml 770 ml 678 ml Output Urine Total 350 ml 300 ml 450 ml 600 ml # Bowel Movements 0 1 0 0 Result Diagram: 10/11/16 0440 10/11/16 0440 Imaging Last Impressions Chest X-Ray 10/10/16 0000 Signed Impressions: Service Date/Time: September 12:38 - CONCLUSION: Diffuse patchy airspace consolidation bilaterally that is more severe in the upper lung zones and appears mildly increased in the right upper lobe. There is a small left pleural effusion also suspected. Jayme Katz MD Chest CT 10/07/16 0000 Signed Impressions: Service Date/Time: Friday, October 07, 2016 14:47 - CONCLUSION: 1. Multilobar consolidation greater in the upper lobes likely pneumonia. Treatment and followup to resolution. 2. Status post CABG. Justen Keen MD Objective Remarks General: No acute distress. On BiPAP. Heart: Regular rate and rhythm. No murmur. Lungs: Diffuse rhonchi, wheeze. Breathing is nonlabored. Abdomen: Soft, nontender, nondistended. Extremities: No lower extremity edema. SCDs. Psych: Alert and oriented. Urinary Catheter: Yes Assessment to: Continue Isabel insert reason: Measure Accurate Output Vascular Central Line Catheter: No A/P Problem List: (1) Bilateral pneumonia ICD Code: J18.9 Status: Acute (2) Hypoxia ICD Code: R09.02 Status: Acute (3) Lactic acid acidosis ICD Code: E87.2 Status: Acute (4) Febrile illness ICD Code: R50.9 Status: Acute (5) Hypertension ICD Code: I10 Status: Chronic (6) Hyperlipidemia ICD Code: E78.5 Status: Chronic (7) Chronic obstructive pulmonary disease ICD Code: J44.9 Status: Chronic (8) Gastroesophageal reflux ICD Code: K21.9 Status: Chronic (9) Acute respiratory failure ICD Code: J96.00 Status: Acute Assessment and Plan 1. Bilateral multilobar pneumonia, acute respiratory failure: Left upper lobe and right middle lobe consolidations noted on imaging. Repeat chest x-ray report noted. Appreciate pulmonology recommendations. Continue Rocephin, azithromycin. Continue DuoNeb. Continue supplemental oxygen. Sputum culture growing normal respiratory john. Influenza negative. Legionella and pneumococcal antigen testing negative. Still requiring BiPAP. 2. Febrile illness with lactic acidosis: Likely secondary to multilobar pneumonia. Tylenol as needed. Lactic acidosis resolved. Blood cultures are negative so far. Patient remains afebrile. 3. Hypertension: Continue home meds. 4. Hyperlipidemia: Continue statin. 5. Coronary artery disease: Currently asymptomatic. Continue home medications. 6. Hypokalemia: Improved. 7. DVT prophylaxis: Heparin. Problem Qualifiers (1) Bilateral pneumonia: Qualified Code: J18.9 - Pneumonia of both lungs due to infectious organism, unspecified part of lung (2) Hypertension: Qualified Code: I15.9 - Secondary hypertension (3) Hyperlipidemia: Qualified Code: E78.5 - Hyperlipidemia, unspecified hyperlipidemia type (4) Chronic obstructive pulmonary disease: Qualified Code: J44.9 - Chronic obstructive pulmonary disease, unspecified COPD type (5) Gastroesophageal reflux: Qualified Code: K21.9 - Gastroesophageal reflux disease, esophagitis presence not specified Samuel Vincent MD Oct 12, 2016 10:52
[2016-10-12] MEDS: cefTRIAXone INJ 1,000 MG in SODIUM CHLORIDE 0.9% INJ 100 ML IV SCH (11:59)
[2016-10-12] MEDS ORDERED: FUROSEMIDE 20 MG/2 ML VIAL IV PUSH ONE (12:00)
[2016-10-12] MEDS: ONDANSETRON HCL 4 MG/2 ML VIAL IVP PRN ×2 (14:08→23:57)
[2016-10-12] MEDS: AZITHROMYCIN INJ 250 MG in SODIUM CHLOR 0.9% 250 ML INJ 250 ML IV SCH (14:09)
--- NOTE | 2016-10-12 16:40 | HHI.PR ---
Subjective Remarks 71 YOWF with Bilat Pn, resp insuff Up in chair No Fever Desaturates Not eating Diureased 1.2 L with 20 mg Lasix Objective Vital Signs Vital Signs Date Time Temp Pulse Resp B/P Pulse Ox O2 Delivery O2 Flow Rate FiO2 10/12/16 16:19 102 10/12/16 16:00 98.3 101 33 124/80 93 10/12/16 15:42 93 50 10/12/16 15:30 104 24 118/79 90 10/12/16 15:00 100 35 142/80 94 10/12/16 14:35 110 10/12/16 14:30 110 24 168/99 91 10/12/16 14:00 108 26 164/104 90 10/12/16 13:30 112 24 163/95 88 10/12/16 13:00 110 37 174/98 95 10/12/16 12:30 110 23 165/96 95 10/12/16 12:06 110 10/12/16 12:00 108 33 170/107 96 10/12/16 12:00 97.9 107 28 176/94 96 10/12/16 11:49 95 50 10/12/16 11:45 106 35 176/94 95 10/12/16 11:30 108 35 182/105 94 10/12/16 11:15 106 33 172/103 95 10/12/16 11:00 108 30 175/106 95 10/12/16 10:36 101 10/12/16 10:30 106 31 173/103 95 10/12/16 10:15 106 30 173/97 94 10/12/16 10:00 104 31 181/97 95 10/12/16 09:45 108 34 172/102 95 10/12/16 09:30 114 34 176/108 91 10/12/16 09:30 94 50 10/12/16 09:15 112 34 181/114 89 10/12/16 09:00 104 30 157/100 91 10/12/16 08:02 100 28 161/84 92 10/12/16 08:00 98.1 100 25 160/94 91 10/12/16 08:00 105 10/12/16 07:53 100 32 160/94 91 10/12/16 07:37 96 Bi-Pap 50 10/12/16 07:33 91 Nasal Cannula 6.00 10/12/16 07:30 92 31 93 10/12/16 07:00 90 28 159/97 95 10/12/16 06:00 92 20 158/89 95 10/12/16 06:00 83 10/12/16 05:00 90 20 156/79 94 10/12/16 04:11 95 50 10/12/16 04:00 97.4 90 24 128/88 95 10/12/16 04:00 90 10/12/16 03:00 90 24 154/88 95 10/12/16 02:00 82 24 153/80 96 10/12/16 02:00 90 10/12/16 01:08 96 50 10/12/16 01:00 92 24 126/78 96 10/12/16 00:00 97.5 96 28 155/80 96 10/12/16 00:00 83 10/11/16 23:00 94 24 169/99 94 10/11/16 22:00 88 28 169/92 95 10/11/16 22:00 93 10/11/16 21:30 95 10/11/16 21:20 94 50 10/11/16 21:00 94 26 167/83 95 10/11/16 20:00 92 10/11/16 20:00 92 28 150/72 92 10/11/16 19:35 93 Nasal Cannula 6.00 10/11/16 19:00 91 Nasal Cannula 6.00 10/11/16 19:00 97.7 90 28 149/78 93 10/11/16 18:00 88 35 153/76 91 10/11/16 18:00 88 10/11/16 17:01 86 35 140/72 91 I/O 10/11/16 10/11/16 10/11/16 10/12/16 10/12/16 10/12/16 07:00 15:00 23:00 07:00 15:00 23:00 Intake Total 682 ml 1903 ml 1010 ml 878 ml 1305 ml Output Total 350 ml 300 ml 450 ml 600 ml 1575 ml Balance 332 ml 1603 ml 560 ml 278 ml -270 ml Intake Oral 30 ml 520 ml 240 ml 200 ml 560 ml IV Total 652 ml 1383 ml 770 ml 678 ml 745 ml Output Urine Total 350 ml 300 ml 450 ml 600 ml 1575 ml # Bowel Movements 0 1 0 0 Result Diagram: 10/11/1643910/11/16439 Objective Remarks GENERAL: MBMN WF, weak, mild sob SKIN: Warm and dry. HEAD: Normocephalic. EYES: No scleral icterus. No injection or drainage. NECK: Supple, trachea midline. No JVD or lymphadenopathy. CARDIOVASCULAR: Regular rate and rhythm without murmurs, gallops, or rubs. RESPIRATORY: Breath sounds equal bilaterally. No accessory muscle use. Bilat rales. GASTROINTESTINAL: Abdomen soft, non-tender, nondistended. MUSCULOSKELETAL: No cyanosis, or edema. BACK: Nontender without obvious deformity. No CVA tenderness. A/P Assessment and Plan Bilat Pneumonia, likly CAP Resp insuff COPD HTN CAD, s/p CABG PLAN: Abx Rocephin and Zithro Aerosol nebs Supplement 02 Bipap at night and prn Keep sat >90% IVF to D5NS Ensure 1 can tid BIPAP at night and PRN sob Lasix 20 mg IV daily BMP in AM Gaurav Rodriguez MD Oct 12, 2016 16:40
[2016-10-12] MEDS: PRAVASTATIN SOD 80 MG TAB PO SCH (20:52)
[2016-10-12] MEDS: AMITRIPTYLINE HCL 100 MG TAB PO SCH (20:53)
[2016-10-12] MEDS ORDERED: cloNIDine HCL 0.1 MG TAB PO PRN (23:00)
[2016-10-13] VITALS (40 sets, daily range): BP systolic 128–166; BP diastolic 74–110; PULSE 98–122; RESP 22–37; TEMP 97.4–99.5; O2SAT 86–98
[2016-10-13] MEDS: LORazepam 2 MG/ML VIAL IVP PRN ×2 (01:29→08:00)
[2016-10-13] MEDS ORDERED: hydrALAZINE HCL 20 MG/ML VIAL IV PRN (01:30)
[2016-10-13] MEDS: methylPREDNISolone SOD SUCC 40 MG/1 ML VIAL IV PUSH SCH ×4 (02:15→20:40)
[2016-10-13] MEDS: D5-NS + KCL 20 MEQ INJ 1,000 ML IV SCH ×2 (06:50→11:21)
[2016-10-13] MEDS: ONDANSETRON HCL 4 MG/2 ML VIAL IVP PRN ×2 (07:39→22:16)
[2016-10-13] MEDS: FUROSEMIDE 20 MG/2 ML VIAL IV PUSH SCH (07:43)
[2016-10-13] MEDS: ASPIRIN 325 MG TAB PO SCH (07:59)
[2016-10-13] MEDS: MULTIVITAMIN TAB PO SCH (07:59)
[2016-10-13] MEDS: HEPARIN SODIUM - SQ 10,000 UNITS/ML VIAL SQ SCH ×2 (07:59→20:41)
[2016-10-13] MEDS: CYANOCOBALAMIN 1,000 MCG TAB PO SCH (08:00)
[2016-10-13] MEDS: guaiFENesin E.R. 600 MG TAB PO SCH ×2 (08:00→20:41)
[2016-10-13] MEDS: VERAPAMIL HCL 240 MG SUSTAINED RELEASE TAB PO SCH ×2 (08:00→20:41)
[2016-10-13] MEDS: RESP: ALBUTEROL 2.5 MG/IPRATROPIUM 0.5 MG NEB (SCH) NEB ×4 (08:25→19:26)
[2016-10-13] MEDS: BENZONATATE 100 MG CAP PO PRN (08:48)
[2016-10-13 10:09] LABS: BLOOD GAS BASE EXCESS 8.2 mmol/L (-2-2); BLOOD GAS HCO3 33 mmol/L (22-26); BLOOD GAS METHEMOGLOBIN 0.5 % (0-2); BLOOD GAS O2 HGB SATURATION 97 % (90-100); BLOOD GAS OXYGEN CONTENT 19.5 Vol % (12.0-20.0); BLOOD GAS PCO2 53 mmHg (38-42); BLOOD GAS PO2 119 mmHg (61-120); BLOOD GAS TOTAL HGB 14.1 G/DL (12.0-16.0); CRITICAL VALUE YES; DRAW SITE RT RADIAL; FIO2 100 %; NUMBER OF ARTERIAL PUNCTURES 1; OXYGEN DEVICE NRB; STAT YES; ULNAR PULSE PRESENT
--- NOTE | 2016-10-13 10:14 | HHI.PR ---
Subjective Remarks Follow up pneumonia, respiratory failure. The patient apparently had a rough night. She is confused and intermittently combative this morning. She has been refusing BiPAP. She has been pulling her oxygen mask off. Objective Vitals Vital Signs Date Time Temp Pulse Resp B/P Pulse Ox O2 Delivery O2 Flow Rate FiO2 10/13/16 08:30 118 10/13/16 08:27 93 Nasal Cannula 6.00 10/13/16 08:00 112 36 160/91 92 10/13/16 07:30 112 36 153/100 92 10/13/16 07:15 92 Nasal Cannula 6.00 Humidified 10/13/16 07:00 112 35 155/98 91 10/13/16 06:30 114 35 156/103 91 10/13/16 06:00 115 30 146/93 92 10/13/16 06:00 112 10/13/16 05:00 110 32 149/91 92 10/13/16 04:00 109 30 153/94 94 10/13/16 04:00 107 10/13/16 03:00 107 32 146/81 92 10/13/16 02:34 113 30 146/81 92 10/13/16 02:00 110 10/13/16 02:00 110 30 161/100 92 10/13/16 01:30 94 50 10/13/16 01:00 117 30 166/110 92 10/13/16 00:00 110 10/13/16 00:00 98.7 110 26 164/98 91 10/13/16 00:00 91 Nasal Cannula 6.00 10/12/16 22:30 95 50 10/12/16 22:00 107 10/12/16 22:00 107 22 173/103 94 10/12/16 21:00 102 30 159/97 92 10/12/16 20:00 102 10/12/16 20:00 98.1 102 30 160/98 92 10/12/16 19:18 92 Nasal Cannula 6.00 10/12/16 19:00 94 Nasal Cannula 6.00 10/12/16 19:00 101 30 161/94 92 10/12/16 18:05 99 32 149/86 92 10/12/16 18:02 99 10/12/16 17:30 96 50 10/12/16 17:00 102 34 155/83 92 10/12/16 16:30 98 30 142/85 94 10/12/16 16:19 102 10/12/16 16:00 98.3 101 33 124/80 93 10/12/16 15:42 93 50 10/12/16 15:30 104 24 118/79 90 10/12/16 15:00 100 35 142/80 94 10/12/16 14:35 110 10/12/16 14:30 110 24 168/99 91 10/12/16 14:00 108 26 164/104 90 10/12/16 13:30 112 24 163/95 88 10/12/16 13:00 110 37 174/98 95 10/12/16 12:30 110 23 165/96 95 10/12/16 12:06 110 10/12/16 12:00 108 33 170/107 96 10/12/16 12:00 97.9 107 28 176/94 96 10/12/16 11:49 95 50 10/12/16 11:45 106 35 176/94 95 10/12/16 11:30 108 35 182/105 94 10/12/16 11:15 106 33 172/103 95 10/12/16 11:00 108 30 175/106 95 10/12/16 10:36 101 10/12/16 10:30 106 31 173/103 95 10/12/16 10:15 106 30 173/97 94 I/O 10/12/16 10/12/16 10/12/16 10/13/16 10/13/16 10/13/16 07:00 15:00 23:00 07:00 15:00 23:00 Intake Total 878 ml 1305 ml 1238 ml 1364 ml Output Total 600 ml 1575 ml 650 ml 600 ml 975 ml Balance 278 ml -270 ml 588 ml 764 ml -975 ml Intake Oral 200 ml 560 ml 480 ml 720 ml IV Total 678 ml 745 ml 758 ml 644 ml Output Urine Total 600 ml 1575 ml 650 ml 600 ml 975 ml # Bowel Movements 0 0 0 Result Diagram: 10/11/16 0440 10/11/16 0440 Imaging Last Impressions Chest X-Ray 10/10/16 0000 Signed Impressions: Service Date/Time: September 12:38 - CONCLUSION: Diffuse patchy airspace consolidation bilaterally that is more severe in the upper lung zones and appears mildly increased in the right upper lobe. There is a small left pleural effusion also suspected. Jayme Katz MD Chest CT 10/07/16 0000 Signed Impressions: Service Date/Time: Friday, October 07, 2016 14:47 - CONCLUSION: 1. Multilobar consolidation greater in the upper lobes likely pneumonia. Treatment and followup to resolution. 2. Status post CABG. Justen Keen MD Objective Remarks General: No acute distress. Heart: Regular rate and rhythm. No murmur. Lungs: Bibasilar crackles. Breathing is nonlabored. Abdomen: Soft, nontender, nondistended. Extremities: No lower extremity edema. SCDs. Psych: Somnolent, confused. Urinary Catheter: Yes Assessment to: Continue Isabel insert reason: Prolonged Immobilization Vascular Central Line Catheter: No A/P Problem List: (1) Bilateral pneumonia ICD Code: J18.9 Status: Acute (2) Hypoxia ICD Code: R09.02 Status: Acute (3) Lactic acid acidosis ICD Code: E87.2 Status: Acute (4) Febrile illness ICD Code: R50.9 Status: Acute (5) Hypertension ICD Code: I10 Status: Chronic (6) Hyperlipidemia ICD Code: E78.5 Status: Chronic (7) Chronic obstructive pulmonary disease ICD Code: J44.9 Status: Chronic (8) Gastroesophageal reflux ICD Code: K21.9 Status: Chronic (9) Acute respiratory failure ICD Code: J96.00 Status: Acute Assessment and Plan 1. Bilateral multilobar pneumonia, acute respiratory failure: Left upper lobe and right middle lobe consolidations noted on imaging. Repeat chest x-ray report noted. Appreciate pulmonology recommendations. Continue Rocephin, azithromycin. Continue DuoNeb. Continue supplemental oxygen. Sputum culture growing normal respiratory john. Influenza negative. Legionella and pneumococcal antigen testing negative. Still requiring BiPAP. ABG done this morning, reviewed. 2. Febrile illness with lactic acidosis: Likely secondary to multilobar pneumonia. Tylenol as needed. Lactic acidosis resolved. Blood cultures are negative. Patient remains afebrile. 3. Hypertension: Continue home meds. 4. Hyperlipidemia: Continue statin. 5. Coronary artery disease: Currently asymptomatic. Continue home medications. 6. Hypokalemia: Improved. 7. DVT prophylaxis: Heparin. Problem Qualifiers (1) Bilateral pneumonia: Qualified Code: J18.9 - Pneumonia of both lungs due to infectious organism, unspecified part of lung (2) Hypertension: Qualified Code: I15.9 - Secondary hypertension (3) Hyperlipidemia: Qualified Code: E78.5 - Hyperlipidemia, unspecified hyperlipidemia type (4) Chronic obstructive pulmonary disease: Qualified Code: J44.9 - Chronic obstructive pulmonary disease, unspecified COPD type (5) Gastroesophageal reflux: Qualified Code: K21.9 - Gastroesophageal reflux disease, esophagitis presence not specified Samuel Vincent MD Oct 13, 2016 10:14
[2016-10-13 10:55] LABS: POTASSIUM 4.3 MEQ/L (3.5-5.1)
[2016-10-13 10:58] LABS: BICARBONATE 31.7 MEQ/L (21.0-32.0)
[2016-10-13 11:05] LABS: AUTOMATED NEUTROPHIL # 8.5 TH/MM3 (1.8-7.7); BASOPHIL # 0.1 TH/MM3 (0-0.2); BASOPHIL % 1.4 % (0.0-2.0); HEMATOCRIT 35.4 % (35.0-46.0); LYMPH % 3.3 % (9.0-44.0); LYMPHOCYTE # 0.3 TH/MM3 (1.0-4.8); MEAN CELL VOLUME 98.9 FL (80.0-100.0); MEAN CORPUSCULAR HEMOGLOBIN 32.1 PG (27.0-34.0); MEAN CORPUSCULAR HGB CONC 32.5 % (32.0-36.0); MONO % 4.9 % (0.0-8.0); NEUT % 90.4 % (16.0-70.0); PLATELET COUNT 322 TH/MM3 (150-450); RED BLOOD COUNT 3.58 MIL/MM3 (4.00-5.30); RED CELL DISTRIBUTION WIDTH 14.3 % (11.6-17.2); WHITE BLOOD COUNT 9.4 TH/MM3 (4.0-11.0)
[2016-10-13 11:10] LABS: HEMO FLAGS DIFF FINAL
[2016-10-13] MEDS: PANTOPRAZOLE SODIUM 40 MG VIAL IV PUSH SCH (11:26)
[2016-10-13] MEDS: cefTRIAXone INJ 1,000 MG in SODIUM CHLORIDE 0.9% INJ 100 ML IV SCH (12:54)
--- NOTE | 2016-10-13 14:24 | HHI.PR ---
Subjective Remarks 71 YOWF with Bilat Pn, resp insuff No Fever Desaturates Not eating Was uncomfortable last night, did't sleep Now, on NC Objective Vital Signs Vital Signs Date Time Temp Pulse Resp B/P Pulse Ox O2 Delivery O2 Flow Rate FiO2 10/13/16 14:14 104 10/13/16 14:00 106 30 161/89 93 10/13/16 12:56 99.5 104 30 150/89 93 10/13/16 12:03 108 22 156/88 88 10/13/16 12:00 104 10/13/16 11:04 106 34 157/93 86 10/13/16 10:30 104 30 145/90 98 10/13/16 10:20 97 Partial Rebreather 12.00 65 10/13/16 10:00 96 50 10/13/16 10:00 122 10/13/16 10:00 104 33 156/88 93 10/13/16 10:00 95 Non-Rebreather 15.00 100 10/13/16 09:30 106 32 144/79 88 10/13/16 09:00 98.6 112 37 142/87 92 10/13/16 08:30 118 10/13/16 08:27 93 Nasal Cannula 6.00 10/13/16 08:00 112 36 160/91 92 10/13/16 07:30 112 36 153/100 92 10/13/16 07:15 92 Nasal Cannula 6.00 Humidified 10/13/16 07:00 112 35 155/98 91 10/13/16 06:30 114 35 156/103 91 10/13/16 06:00 115 30 146/93 92 10/13/16 06:00 112 10/13/16 05:00 110 32 149/91 92 10/13/16 04:00 109 30 153/94 94 10/13/16 04:00 107 10/13/16 03:00 107 32 146/81 92 10/13/16 02:34 113 30 146/81 92 10/13/16 02:00 110 10/13/16 02:00 110 30 161/100 92 10/13/16 01:30 94 50 10/13/16 01:00 117 30 166/110 92 10/13/16 00:00 110 10/13/16 00:00 98.7 110 26 164/98 91 10/13/16 00:00 91 Nasal Cannula 6.00 10/12/16 22:30 95 50 10/12/16 22:00 107 10/12/16 22:00 107 22 173/103 94 10/12/16 21:00 102 30 159/97 92 10/12/16 20:00 102 10/12/16 20:00 98.1 102 30 160/98 92 10/12/16 19:18 92 Nasal Cannula 6.00 10/12/16 19:00 94 Nasal Cannula 6.00 10/12/16 19:00 101 30 161/94 92 10/12/16 18:05 99 32 149/86 92 10/12/16 18:02 99 10/12/16 17:30 96 50 10/12/16 17:00 102 34 155/83 92 10/12/16 16:30 98 30 142/85 94 10/12/16 16:19 102 10/12/16 16:00 98.3 101 33 124/80 93 10/12/16 15:42 93 50 10/12/16 15:30 104 24 118/79 90 10/12/16 15:00 100 35 142/80 94 10/12/16 14:35 110 10/12/16 14:30 110 24 168/99 91 I/O 10/12/16 10/12/16 10/12/16 10/13/16 10/13/16 10/13/16 07:00 15:00 23:00 07:00 15:00 23:00 Intake Total 878 ml 1305 ml 1238 ml 1364 ml 485 ml Output Total 600 ml 1575 ml 650 ml 600 ml 1725 ml Balance 278 ml -270 ml 588 ml 764 ml -1240 ml Intake Oral 200 ml 560 ml 480 ml 720 ml 120 ml IV Total 678 ml 745 ml 758 ml 644 ml 365 ml Output Urine Total 600 ml 1575 ml 650 ml 600 ml 1725 ml # Bowel Movements 0 0 0 Result Diagram: 10/13/16 1037 10/13/16 1037 Objective Remarks GENERAL: MBMN WF, weak, mild sob SKIN: Warm and dry. HEAD: Normocephalic. EYES: No scleral icterus. No injection or drainage. NECK: Supple, trachea midline. No JVD or lymphadenopathy. CARDIOVASCULAR: Regular rate and rhythm without murmurs, gallops, or rubs. RESPIRATORY: Breath sounds equal bilaterally. No accessory muscle use. Bilat rales. GASTROINTESTINAL: Abdomen soft, non-tender, nondistended. MUSCULOSKELETAL: No cyanosis, or edema. BACK: Nontender without obvious deformity. No CVA tenderness. A/P Assessment and Plan Bilat Pneumonia, likly CAP Resp insuff COPD HTN CAD, s/p CABG PLAN: Abx Rocephin and Zithro Aerosol nebs Supplement 02 Bipap at night and prn Keep sat >90% IVF to D5NS Ensure 1 can tid BIPAP at night and PRN sob Lasix 20 mg IV daily Gaurav Rodriguez MD Oct 13, 2016 14:24
--- NOTE | 2016-10-13 14:40 | RADHPO ---
EXAM DATE/TIME: 10/13/2016 14:28 [facility] COMPARISON: CHEST SINGLE AP, October 10, 2016, 12:38. INDICATIONS : Pneumonia. Cough. Short of breath. MEDICAL HISTORY : Chronic obstructive pulmonary disease. Diverticulitis. Hypertension. Cardiovascular disease. SURGICAL HISTORY : Inguinal hernia repair. CABG. Hysterectomy. ENCOUNTER: Subsequent ACUITY: 1 week PAIN SCORE: 0/10 LOCATION: Bilateral chest FINDINGS: There is cardiomegaly, sternotomy wires and mediastinal clips noted. Interstitial and alveolar opacit ies are again seen and not significantly changed. No effusions. CONCLUSION: No significant change has occurred. Filemon Hannah MD on October 13, 2016 at 14:38 Board Certified Radiologist. This report was verified electronically.
[2016-10-13] MEDS: PRAVASTATIN SOD 80 MG TAB PO SCH (20:40)
[2016-10-13] MEDS: AMITRIPTYLINE HCL 100 MG TAB PO SCH (20:41)
[2016-10-14] VITALS (28 sets, daily range): BP systolic 129–155; BP diastolic 62–96; PULSE 90–110; RESP 21–33; TEMP 97.5–98.3; O2SAT 87–98
[2016-10-14] MEDS: LORazepam 2 MG/ML VIAL IVP PRN (01:01)
[2016-10-14] MEDS: methylPREDNISolone SOD SUCC 40 MG/1 ML VIAL IV PUSH SCH ×3 (01:01→13:14)
[2016-10-14 05:10] LABS: POTASSIUM 4.7 MEQ/L (3.5-5.1)
[2016-10-14 05:13] LABS: BICARBONATE 28.8 MEQ/L (21.0-32.0)
[2016-10-14 05:26] LABS: AUTOMATED NEUTROPHIL # 9.4 TH/MM3 (1.8-7.7); BASOPHIL % 0.3 % (0.0-2.0); EOSINOPHIL % 0.1 % (0.0-4.0); HEMATOCRIT 35.3 % (35.0-46.0); LYMPH % 2.8 % (9.0-44.0); LYMPHOCYTE # 0.3 TH/MM3 (1.0-4.8); MEAN CELL VOLUME 97.2 FL (80.0-100.0); MEAN CORPUSCULAR HEMOGLOBIN 32.1 PG (27.0-34.0); MONO % 0.9 % (0.0-8.0); NEUT % 95.9 % (16.0-70.0); PLATELET COUNT 356 TH/MM3 (150-450); RED BLOOD COUNT 3.63 MIL/MM3 (4.00-5.30); RED CELL DISTRIBUTION WIDTH 14.1 % (11.6-17.2); WHITE BLOOD COUNT 9.8 TH/MM3 (4.0-11.0)
[2016-10-14 05:28] LABS: HEMO FLAGS DIFF FINAL
[2016-10-14] MEDS ORDERED: GLUCAGON 1 MG/ML VIAL OTHER PRN (06:00)
[2016-10-14] MEDS ORDERED: DEXTROSE 50% IN WATER 50 ML VIAL(D50) IV PUSH PRN (06:00)
[2016-10-14] MEDS: INSULIN ASPART SUPPLEMENTAL SCALE SQ SCH ×4 (06:01→20:33)
[2016-10-14] MEDS: RESP: ALBUTEROL 2.5 MG/IPRATROPIUM 0.5 MG NEB (SCH) NEB ×4 (07:42→20:01)
[2016-10-14] MEDS: D5-NS + KCL 20 MEQ INJ 1,000 ML IV SCH (07:59)
[2016-10-14] MEDS: BENZONATATE 100 MG CAP PO PRN ×2 (07:59→17:55)
[2016-10-14] MEDS: ACETAMIN 325 MG/BUTALBITAL 50 MG/CAFFEINE 40 MG TAB PO PRN (08:00)
[2016-10-14] MEDS: FUROSEMIDE 20 MG/2 ML VIAL IV PUSH SCH (08:26)
[2016-10-14] MEDS: HEPARIN SODIUM - SQ 10,000 UNITS/ML VIAL SQ SCH ×2 (08:26→20:29)
[2016-10-14] MEDS: MULTIVITAMIN TAB PO SCH (08:27)
[2016-10-14] MEDS: ASPIRIN 325 MG TAB PO SCH (08:27)
[2016-10-14] MEDS: CYANOCOBALAMIN 1,000 MCG TAB PO SCH (08:27)
[2016-10-14] MEDS: VERAPAMIL HCL 240 MG SUSTAINED RELEASE TAB PO SCH ×2 (08:27→20:28)
--- NOTE | 2016-10-14 12:31 | HHI.PR ---
Subjective Remarks Patient is feeling better this morning, was on 5L NC overnight, now wweaned down to 3 liters. Did get up and stand with the nurse. Breathing is improved. No confusion. Objective Vitals Vital Signs Date Time Temp Pulse Resp B/P Pulse Ox O2 Delivery O2 Flow Rate FiO2 10/14/16 11:00 96 25 150/88 92 10/14/16 10:00 90 25 138/82 93 10/14/16 10:00 93 Nasal Cannula 3.00 Humidified 10/14/16 09:00 93 Nasal Cannula 4.00 Humidified 10/14/16 09:00 98 33 146/86 93 10/14/16 08:00 97.9 102 30 135/83 93 10/14/16 08:00 93 Nasal Cannula 5.00 Humidified 10/14/16 07:43 95 Nasal Cannula 5.00 10/14/16 07:00 94 Nasal Cannula 6.00 Humidified 10/14/16 07:00 102 28 151/87 95 10/14/16 06:00 101 30 131/86 95 10/14/16 06:00 101 10/14/16 05:00 101 26 129/75 95 10/14/16 04:00 110 10/14/16 04:00 97.5 108 30 155/90 94 10/14/16 03:00 106 26 155/86 95 10/14/16 02:00 106 10/14/16 02:00 102 26 150/96 94 10/14/16 01:46 94 Nasal Cannula 6.00 10/14/16 01:00 102 30 151/96 96 10/14/16 00:00 103 10/14/16 00:00 98.0 108 30 151/84 98 10/13/16 23:00 108 10/13/16 23:00 108 30 145/74 93 10/13/16 22:00 108 30 160/86 94 10/13/16 22:00 108 10/13/16 21:46 96 50 10/13/16 21:00 106 30 164/90 92 10/13/16 21:00 106 10/13/16 20:00 97.4 107 24 162/93 94 10/13/16 20:00 94 Nasal Cannula 6.00 Humidified 10/13/16 20:00 105 10/13/16 19:26 92 Nasal Cannula 6.00 10/13/16 18:13 104 36 138/86 91 10/13/16 18:00 100 10/13/16 17:30 98 29 93 10/13/16 17:00 98 33 128/83 91 10/13/16 16:30 102 34 88 10/13/16 16:09 104 10/13/16 16:00 98.8 106 30 153/86 93 10/13/16 15:00 108 36 96 10/13/16 14:14 104 10/13/16 14:00 106 30 161/89 93 10/13/16 12:56 99.5 104 30 150/89 93 I/O 10/13/16 10/13/16 10/13/16 10/14/16 10/14/16 10/14/16 07:00 15:00 23:00 07:00 15:00 23:00 Intake Total 1364 ml 485 ml 564 ml 1132 ml Output Total 600 ml 1725 ml 500 ml 450 ml Balance 764 ml -1240 ml 64 ml 682 ml Intake Oral 720 ml 120 ml 240 ml 620 ml IV Total 644 ml 365 ml 324 ml 512 ml Output Urine Total 600 ml 1725 ml 500 ml 450 ml # Bowel Movements 0 0 0 Result Diagram: 10/14/1643410/14/16434 Objective Remarks GENERAL: Well-nourished, well-developed pleasant obese female patient. SKIN: Warm and dry. HEAD: Normocephalic. EYES: No scleral icterus. No injection or drainage. NECK: Supple, trachea midline. No JVD or lymphadenopathy. CARDIOVASCULAR: Regular rate and rhythm without murmurs, gallops, or rubs. RESPIRATORY: Breath sounds equal bilaterally. Scant crackles LLL, and anterior left lung field. Mild increased work of breathing on NC. GASTROINTESTINAL: Abdomen soft, non-tender, nondistended. EXTREMITIES: No cyanosis, or edema. NEUROLOGICAL: Awake, alert, and oriented x 3. Non-focal. A/P Problem List: (1) Bilateral pneumonia ICD Code: J18.9 Status: Acute (2) Hypoxia ICD Code: R09.02 Status: Acute (3) Lactic acid acidosis ICD Code: E87.2 Status: Acute (4) Febrile illness ICD Code: R50.9 Status: Acute (5) Hypertension ICD Code: I10 Status: Chronic (6) Hyperlipidemia ICD Code: E78.5 Status: Chronic (7) Chronic obstructive pulmonary disease ICD Code: J44.9 Status: Chronic (8) Gastroesophageal reflux ICD Code: K21.9 Status: Chronic (9) Acute respiratory failure ICD Code: J96.00 Status: Acute Assessment and Plan 1. Bilateral multilobar pneumonia, acute respiratory failure (s/p bipap): Left upper lobe and right middle lobe consolidations. Influenza negative. Legionella and pneumococcal antigen testing negative. Sputum culture growing normal respiratory john. Clinically improved today and wean down to 3 L nasal cannula. Continue DuoNeb. Continue supplemental oxygen. Appreciate pulm input / - discussed with Dr. Rodriguez. Continue lasix 20 mg IVP daily. 2. Sepsis due to pneumonia. Blood cultures are negative. Lactic acidosis resolved. 3. Hyperglycemia. Likely secondary to the steroids which have been decreased today by Dr. Rodriguez. I will check a hemoglobin A1c. 4. Hypertension: Continue home meds. 5. Coronary artery disease: Currently asymptomatic. Continue home medications. 6. Hypokalemia: resolved. 7. DVT prophylaxis: Heparin. Problem Qualifiers (1) Bilateral pneumonia: Qualified Code: J18.9 - Pneumonia of both lungs due to infectious organism, unspecified part of lung (2) Hypertension: Qualified Code: I15.9 - Secondary hypertension (3) Hyperlipidemia: Qualified Code: E78.5 - Hyperlipidemia, unspecified hyperlipidemia type (4) Chronic obstructive pulmonary disease: Qualified Code: J44.9 - Chronic obstructive pulmonary disease, unspecified COPD type (5) Gastroesophageal reflux: Qualified Code: K21.9 - Gastroesophageal reflux disease, esophagitis presence not specified Ayleen Ybarra MD Oct 14, 2016 12:31
[2016-10-14] MEDS: PANTOPRAZOLE SODIUM 40 MG VIAL IV PUSH SCH (12:42)
[2016-10-14] MEDS: cefTRIAXone INJ 1,000 MG in SODIUM CHLORIDE 0.9% INJ 100 ML IV SCH (12:42)
[2016-10-14] MEDS: guaiFENesin E.R. 600 MG TAB PO SCH ×2 (12:45→20:28)
--- NOTE | 2016-10-14 17:07 | HHI.PR ---
Subjective Remarks 71 YOWF with Bilat Pn, resp insuff No Fever Feels much better Weaned to 3 LNC BS high Objective Vital Signs Vital Signs Date Time Temp Pulse Resp B/P Pulse Ox O2 Delivery O2 Flow Rate FiO2 10/14/16 16:00 98.3 96 21 91 10/14/16 16:00 96 21 132/65 91 10/14/16 15:00 94 24 94 10/14/16 15:00 94 24 142/67 94 10/14/16 14:00 98 26 140/70 94 10/14/16 14:00 107 10/14/16 13:00 100 31 138/62 93 10/14/16 12:00 97.7 102 25 141/71 90 10/14/16 12:00 107 10/14/16 11:00 96 25 150/88 92 10/14/16 10:00 90 25 138/82 93 10/14/16 10:00 93 Nasal Cannula 3.00 Humidified 10/14/16 10:00 107 10/14/16 09:00 93 Nasal Cannula 4.00 Humidified 10/14/16 09:00 98 33 146/86 93 10/14/16 08:00 107 10/14/16 08:00 97.9 102 30 135/83 93 10/14/16 08:00 93 Nasal Cannula 5.00 Humidified 10/14/16 07:43 95 Nasal Cannula 5.00 10/14/16 07:00 94 Nasal Cannula 6.00 Humidified 10/14/16 07:00 102 28 151/87 95 10/14/16 06:00 101 30 131/86 95 10/14/16 06:00 101 10/14/16 05:00 101 26 129/75 95 10/14/16 04:00 110 10/14/16 04:00 97.5 108 30 155/90 94 10/14/16 03:00 106 26 155/86 95 10/14/16 02:00 106 10/14/16 02:00 102 26 150/96 94 10/14/16 01:46 94 Nasal Cannula 6.00 10/14/16 01:00 102 30 151/96 96 10/14/16 00:00 103 10/14/16 00:00 98.0 108 30 151/84 98 10/13/16 23:00 108 10/13/16 23:00 108 30 145/74 93 10/13/16 22:00 108 30 160/86 94 10/13/16 22:00 108 10/13/16 21:46 96 50 10/13/16 21:00 106 30 164/90 92 10/13/16 21:00 106 10/13/16 20:00 97.4 107 24 162/93 94 10/13/16 20:00 94 Nasal Cannula 6.00 Humidified 10/13/16 20:00 105 10/13/16 19:26 92 Nasal Cannula 6.00 10/13/16 18:13 104 36 138/86 91 10/13/16 18:00 100 10/13/16 17:30 98 29 93 I/O 10/13/16 10/13/16 10/13/16 10/14/16 10/14/16 10/14/16 07:00 15:00 23:00 07:00 15:00 23:00 Intake Total 1364 ml 485 ml 564 ml 1132 ml 600 ml Output Total 600 ml 1725 ml 500 ml 450 ml 1450 ml Balance 764 ml -1240 ml 64 ml 682 ml -850 ml Intake Oral 720 ml 120 ml 240 ml 620 ml 600 ml IV Total 644 ml 365 ml 324 ml 512 ml Output Urine Total 600 ml 1725 ml 500 ml 450 ml 1450 ml # Bowel Movements 0 0 0 0 Result Diagram: 10/14/1643410/14/16434 Objective Remarks GENERAL: MBMN WF, weak, mild sob SKIN: Warm and dry. HEAD: Normocephalic. EYES: No scleral icterus. No injection or drainage. NECK: Supple, trachea midline. No JVD or lymphadenopathy. CARDIOVASCULAR: Regular rate and rhythm without murmurs, gallops, or rubs. RESPIRATORY: Breath sounds equal bilaterally. No accessory muscle use. Bilat rales. GASTROINTESTINAL: Abdomen soft, non-tender, nondistended. MUSCULOSKELETAL: No cyanosis, or edema. BACK: Nontender without obvious deformity. No CVA tenderness. A/P Assessment and Plan Bilat Pneumonia, likly CAP Resp insuff COPD HTN CAD, s/p CABG PLAN: Abx Rocephin and Zithro Aerosol nebs Supplement 02 Keep sat >90% IVF to D5NS Ensure 1 can tid Decrease Solunedrol 40 mg q 12 hrs EZ PAP Lasix 20 mg IV daily Gaurav Rodriguez MD Oct 14, 2016 17:07
[2016-10-14 18:13] LABS: HEMOGLOBIN A1a 2.4 %; HEMOGLOBIN A1b 1.4 %; HEMOGLOBIN Ao 77.8 %; HEMOGLOBIN F 1.5 %; HEMOGLOBIN LA1C 4.2 %; HEMOGLOBIN P3 5.8 %
[2016-10-14] MEDS: AMITRIPTYLINE HCL 100 MG TAB PO SCH (20:29)
[2016-10-14] MEDS: PRAVASTATIN SOD 80 MG TAB PO SCH (20:36)
[2016-10-15] VITALS (26 sets, daily range): BP systolic 117–152; BP diastolic 58–97; PULSE 79–102; RESP 19–35; TEMP 97.3–98.6; O2SAT 89–95
[2016-10-15] MEDS: ACETAMIN 325 MG/BUTALBITAL 50 MG/CAFFEINE 40 MG TAB PO PRN (00:33)
[2016-10-15] MEDS ORDERED: CODEINE SULFATE 15 MG TAB PO ONE (01:30)
[2016-10-15] MEDS: methylPREDNISolone SOD SUCC 40 MG/1 ML VIAL IV PUSH SCH ×2 (02:00→13:19)
[2016-10-15] MEDS: RESP: ALBUTEROL 2.5 MG/IPRATROPIUM 0.5 MG NEB (PRN) NEB ×2 (02:08→19:57)
[2016-10-15] MEDS: BENZONATATE 100 MG CAP PO PRN ×3 (02:09→20:28)
[2016-10-15] MEDS ORDERED: CODEINE SULFATE 30 MG TAB PO ONE (02:30)
[2016-10-15] MEDS: D5-NS + KCL 20 MEQ INJ 1,000 ML IV SCH (04:27)
[2016-10-15] MEDS: INSULIN ASPART SUPPLEMENTAL SCALE SQ SCH ×4 (07:11→20:29)
[2016-10-15] MEDS: RESP: ALBUTEROL 2.5 MG/IPRATROPIUM 0.5 MG NEB (SCH) NEB ×3 (07:35→15:13)
[2016-10-15] MEDS: MULTIVITAMIN TAB PO SCH (09:09)
[2016-10-15] MEDS: VERAPAMIL HCL 240 MG SUSTAINED RELEASE TAB PO SCH ×2 (09:09→20:28)
[2016-10-15] MEDS: CYANOCOBALAMIN 1,000 MCG TAB PO SCH (09:09)
[2016-10-15] MEDS: ASPIRIN 325 MG TAB PO SCH (09:09)
[2016-10-15] MEDS: guaiFENesin E.R. 600 MG TAB PO SCH ×2 (09:09→20:28)
[2016-10-15] MEDS: HEPARIN SODIUM - SQ 10,000 UNITS/ML VIAL SQ SCH ×2 (09:10→20:28)
[2016-10-15] MEDS: FUROSEMIDE 20 MG/2 ML VIAL IV PUSH SCH (09:10)
[2016-10-15] MEDS: cefTRIAXone INJ 1,000 MG in SODIUM CHLORIDE 0.9% INJ 100 ML IV SCH (12:13)
[2016-10-15] MEDS: PANTOPRAZOLE SODIUM 40 MG VIAL IV PUSH SCH (12:13)
--- NOTE | 2016-10-15 15:58 | HHI.PR ---
Subjective Remarks Mrs. Santiago feels improved today. Her dyspnea has improved and she remained stable on 3 L nasal cannula. She did get up and walk several feet with physical therapy today but feels quite weak and her legs feel wobbly. Objective Vitals Vital Signs Date Time Temp Pulse Resp B/P Pulse Ox O2 Delivery O2 Flow Rate FiO2 10/15/16 15:00 88 24 133/80 92 10/15/16 14:00 90 10/15/16 14:00 90 23 125/76 92 10/15/16 13:00 92 29 119/77 92 10/15/16 12:00 98.3 87 28 125/58 91 10/15/16 12:00 88 10/15/16 11:00 88 23 117/78 95 10/15/16 10:00 92 31 119/67 92 10/15/16 10:00 92 10/15/16 09:00 92 35 129/67 91 10/15/16 08:00 94 31 124/63 94 10/15/16 08:00 95 Nasal Cannula 3.00 10/15/16 08:00 92 10/15/16 08:00 98.4 10/15/16 07:35 94 Nasal Cannula 3.00 10/15/16 07:00 90 24 130/72 94 10/15/16 06:00 91 10/15/16 06:00 92 29 131/66 93 10/15/16 05:00 90 24 132/75 94 10/15/16 04:00 90 10/15/16 04:00 98.3 90 23 129/75 95 10/15/16 03:00 90 24 124/68 94 10/15/16 02:00 89 10/15/16 02:00 88 21 120/77 95 10/15/16 01:33 26 10/15/16 01:00 90 25 145/77 94 10/15/16 00:00 90 10/15/16 00:00 98.6 90 25 133/69 92 10/14/16 23:00 94 23 137/70 95 10/14/16 22:00 98 26 140/75 94 10/14/16 22:00 97 10/14/16 21:08 98.1 96 25 146/81 92 10/14/16 20:00 95 10/14/16 19:15 94 28 132/64 94 10/14/16 19:00 93 Nasal Cannula 3.00 10/14/16 18:34 93 10/14/16 18:15 100 33 140/71 87 10/14/16 17:28 96 29 140/72 91 10/14/16 16:30 95 10/14/16 16:00 98.3 96 21 91 10/14/16 16:00 96 21 132/65 91 I/O 10/14/16 10/14/16 10/14/16 10/15/16 10/15/16 10/15/16 07:00 15:00 23:00 07:00 15:00 23:00 Intake Total 1132 ml 600 ml 378 ml 348 ml 835 ml Output Total 450 ml 1450 ml 525 ml 425 ml 1100 ml Balance 682 ml -850 ml -147 ml -77 ml -265 ml Intake Oral 620 ml 600 ml 150 ml 120 ml 520 ml IV Total 512 ml 228 ml 228 ml 315 ml Output Urine Total 450 ml 1450 ml 525 ml 425 ml 1100 ml # Bowel Movements 0 0 0 0 0 Result Diagram: 10/14/1643410/14/16434 Objective Remarks GENERAL: Well-nourished, well-developed pleasant obese female patient. SKIN: Warm and dry. HEAD: Normocephalic. EYES: No scleral icterus. No injection or drainage. NECK: Supple, trachea midline. No JVD or lymphadenopathy. CARDIOVASCULAR: Regular rate and rhythm without murmurs, gallops, or rubs. RESPIRATORY: Breath sounds equal bilaterally. Scant crackles LLL, and anterior left lung field. Mild increased work of breathing on NC. GASTROINTESTINAL: Abdomen soft, non-tender, nondistended. EXTREMITIES: No cyanosis, or edema. NEUROLOGICAL: Awake, alert, and oriented x 3. Non-focal. A/P Problem List: (1) Bilateral pneumonia ICD Code: J18.9 Status: Acute (2) Hypoxia ICD Code: R09.02 Status: Acute (3) Lactic acid acidosis ICD Code: E87.2 Status: Acute (4) Febrile illness ICD Code: R50.9 Status: Acute (5) Hypertension ICD Code: I10 Status: Chronic (6) Hyperlipidemia ICD Code: E78.5 Status: Chronic (7) Chronic obstructive pulmonary disease ICD Code: J44.9 Status: Chronic (8) Gastroesophageal reflux ICD Code: K21.9 Status: Chronic (9) Acute respiratory failure ICD Code: J96.00 Status: Acute Assessment and Plan 1. Bilateral multilobar pneumonia, acute respiratory failure (s/p bipap): Left upper lobe and right middle lobe consolidations. Influenza negative. Legionella and pneumococcal antigen testing negative. Sputum culture growing normal respiratory john. Clinically improving and wean down to 3 L nasal cannula. Continue DuoNeb. Continue supplemental oxygen. Appreciate pulm input/ - discussed with Dr. Rodriguez. Will DC Rocephin and Zithromax and put her on Levaquin daily. 2. Sepsis due to pneumonia. Blood cultures are negative. Lactic acidosis resolved. 3. Hyperglycemia/prediabetes. A1c is 6.5. Will change steroids to prednisone. 4. Hypertension: Continue home meds. 5. Coronary artery disease: Currently asymptomatic. Continue home medications. 6. Hypokalemia: resolved. 7. DVT prophylaxis: Heparin. Discharge Planning Anticipate [facility] to detention facility in a.m. if remains stable. Problem Qualifiers (1) Bilateral pneumonia: Qualified Code: J18.9 - Pneumonia of both lungs due to infectious organism, unspecified part of lung (2) Hypertension: Qualified Code: I15.9 - Secondary hypertension (3) Hyperlipidemia: Qualified Code: E78.5 - Hyperlipidemia, unspecified hyperlipidemia type (4) Chronic obstructive pulmonary disease: Qualified Code: J44.9 - Chronic obstructive pulmonary disease, unspecified COPD type (5) Gastroesophageal reflux: Qualified Code: K21.9 - Gastroesophageal reflux disease, esophagitis presence not specified Ayleen Ybarra MD Oct 15, 2016 15:58
--- NOTE | 2016-10-15 17:46 | EC ---
Study Study Date:10/15/2016 STUDY CONCLUSIONS SUMMARY - Left ventricle: The cavity size was at the upper limits of normal. Systolic function was severely reduced. The estimated ejection fraction was in the range of 25% to 30%. - Mitral valve: Mild regurgitation. - Tricuspid valve: Mild regurgitation. If LV function is below 40, please consider prescribing an ACEI or ARB or document rationale for non-use. PROCEDURE DATA STUDY STATUS: Elective. Procedure: Transthoracic echocardiography. Image quality was good. Scanning was performed from the parasternal, apical, and subcostal acoustic windows. Study completion: The patient tolerated the procedure well. Transthoracic echocardiography. M-mode, complete 2D, complete spectral Doppler, and color Doppler. Height: Height: 65in. Weight: Weight: 215.6lb. Body mass index: BMI: 35.9kg/m^2. Body surface area: BSA: 2.04m^2. Patient status: Inpatient. CARDIAC ANATOMY LEFT VENTRICLE: The cavity size was at the upper limits of normal. Systolic function was severely reduced. The estimated ejection fraction was in the range of 25% to 30%. AORTIC VALVE: The valve appears to be grossly normal. Doppler: There was no stenosis. No regurgitation. Valve area: 1.55cm^2(VTI). Indexed valve area: 0.76cm^2/m^2 (VTI). Valve area: 1.63cm^2 (Vmax). Indexed valve area: 0.8cm^2/m^2 (Vmax). Mean gradient: 5mm Hg (S). MITRAL VALVE: The valve appears to be grossly normal. Doppler: There was no evidence for stenosis. Mild regurgitation. Peak gradient: 4mm Hg (D). LEFT ATRIUM: The atrium was normal in size. PULMONIC VALVE: The valve appears to be grossly normal. Doppler: There was no evidence for stenosis. Trace regurgitation. TRICUSPID VALVE: The valve appears to be grossly normal. Doppler: There was no evidence for stenosis. Mild regurgitation. Patient weight: 215.6lb _Ejection fraction:_ 65-75% _Fractional shortening:_ 32% up to 5Kg 5-11.5Kg 11.6-22.9Kg 23-45Kg 45-57Kg Aortic Root 7-13 <17 13-22 17-27 17-27 LA diam 6-13 <23 24-38 33-47 37-40 RVID 10-17 7-15 7-15 7-18 8-17 LVIDd 12-22 <32 24-38 33-47 37-40 LVPW 2-4 3-6 5-7 6-8 7-8 IVS 2-4 3-6 5-7 6-8 7-8 BASIC MEASUREMENTS ADULT NORMAL Left ventricle LV internal dimension, ED, chordal 52 mm 43-52 level, PLAX LV internal dimension, ES, chordal *46.5 mm 23-38 level, PLAX Fractional shortening, chordal level, *11 % >29 PLAX LV posterior wall thickness, ED 9.22 mm IVS/LVPW ratio, ED 0.99 <1.3 Volume, ED, MOD, 1-plane 115 ml Volume, ES, MOD, 1-plane 84 ml Ejection fraction, MOD, 1-plane 28 % Stroke volume, MOD, 1-plane 31 ml Volume index, ED, MOD, 1-plane 56 ml/m^2 Volume index, ES, MOD, 1-plane 41 ml/m^2 Stroke index, MOD, 1-plane 15.2 ml/m^2 Volume, ED, MOD, 2-plane 132 ml Volume, ES, MOD, 2-plane 90 ml Ejection fraction, MOD, 2-plane 32 % Stroke volume, MOD, 2-plane 42 ml Volume index, ED, MOD, 2-plane 65 ml/m^2 Volume index, ES, MOD, 2-plane 44 ml/m^2 Stroke index, MOD, 2-plane 20.6 ml/m^2 Ventricular septum Septal thickness, ED 9.16 mm Aortic valve Leaflet separation 18 mm 15-26 Aorta Root diameter, ED 31 mm Left atrium Anterior-posterior dimension 30 mm Anterior-posterior dimension index 1.47 cm/m^2 <2.2 BASIC MEASUREMENTS ADULT NORMAL Aortic valve Leaflet separation 18 mm 15-26 DOPPLER MEASUREMENTS ADULT NORMAL Aortic valve Peak velocity, S 152 cm/s Mean velocity, S 105 cm/s VTI, S 23.9 cm Mean gradient, S 5 mm Hg Valve area, VTI 1.55 cm^2 Valve area index, VTI 0.76 cm^2/m^2 Valve area, Vmax 1.63 cm^2 Valve area index, Vmax 0.8 cm^2/m^2 Mitral valve Peak E-wave velocity 105 cm/s Peak A-wave velocity 65.6 cm/s Deceleration time 194 ms 150-230 Peak gradient, D 4 mm Hg Peak E/A ratio 1.6 Tricuspid valve Regurgitant peak velocity 293 cm/s Peak RV-RA gradient, S 34 mm Hg Maximal regurgitant velocity 293 cm/s Pulmonic valve Peak velocity, S 47.4 cm/s LEGEND: Mean values are shown as u=mean value. Asterisk (*) duarte values outside specified normal range. Prepared and signed by Luis Campos [id number]
--- NOTE | 2016-10-15 18:32 | HHI.PR ---
Subjective Remarks 71 YOWF with Bilat Pn, resp insuff No Fever Feels much better Weaned to 3 LNC Family at Objective Vital Signs Vital Signs Date Time Temp Pulse Resp B/P Pulse Ox O2 Delivery O2 Flow Rate FiO2 10/15/16 18:00 94 28 147/80 93 10/15/16 18:00 94 10/15/16 17:03 102 34 142/97 89 10/15/16 16:00 97.3 90 19 131/82 92 10/15/16 16:00 90 10/15/16 15:00 88 24 133/80 92 10/15/16 14:00 90 10/15/16 14:00 90 23 125/76 92 10/15/16 13:00 92 29 119/77 92 10/15/16 12:00 98.3 87 28 125/58 91 10/15/16 12:00 88 10/15/16 11:00 88 23 117/78 95 10/15/16 10:00 92 31 119/67 92 10/15/16 10:00 92 10/15/16 09:00 92 35 129/67 91 10/15/16 08:00 94 31 124/63 94 10/15/16 08:00 95 Nasal Cannula 3.00 10/15/16 08:00 92 10/15/16 08:00 98.4 10/15/16 07:35 94 Nasal Cannula 3.00 10/15/16 07:00 90 24 130/72 94 10/15/16 06:00 91 10/15/16 06:00 92 29 131/66 93 10/15/16 05:00 90 24 132/75 94 10/15/16 04:00 90 10/15/16 04:00 98.3 90 23 129/75 95 10/15/16 03:00 90 24 124/68 94 10/15/16 02:00 89 10/15/16 02:00 88 21 120/77 95 10/15/16 01:33 26 10/15/16 01:00 90 25 145/77 94 10/15/16 00:00 90 10/15/16 00:00 98.6 90 25 133/69 92 10/14/16 23:00 94 23 137/70 95 10/14/16 22:00 98 26 140/75 94 10/14/16 22:00 97 10/14/16 21:08 98.1 96 25 146/81 92 10/14/16 20:00 95 10/14/16 19:15 94 28 132/64 94 10/14/16 19:00 93 Nasal Cannula 3.00 10/14/16 18:34 93 I/O 10/14/16 10/14/16 10/14/16 10/15/16 10/15/16 10/15/16 06:59 14:59 22:59 06:59 14:59 22:59 Intake Total 1132 ml 978 ml 348 ml 835 ml Output Total 450 ml 1975 ml 425 ml 1100 ml Balance 682 ml -997 ml -77 ml -265 ml Intake Oral 620 ml 750 ml 120 ml 520 ml IV Total 512 ml 228 ml 228 ml 315 ml Output Urine Total 450 ml 1975 ml 425 ml 1100 ml # Bowel Movements 0 0 0 0 Result Diagram: 10/14/1643410/14/16434 Objective Remarks GENERAL: MBMN WF, weak, mild sob SKIN: Warm and dry. HEAD: Normocephalic. EYES: No scleral icterus. No injection or drainage. NECK: Supple, trachea midline. No JVD or lymphadenopathy. CARDIOVASCULAR: Regular rate and rhythm without murmurs, gallops, or rubs. RESPIRATORY: Breath sounds equal bilaterally. No accessory muscle use. Bilat rales. GASTROINTESTINAL: Abdomen soft, non-tender, nondistended. MUSCULOSKELETAL: No cyanosis, or edema. BACK: Nontender without obvious deformity. No CVA tenderness. A/P Assessment and Plan Bilat Pneumonia, likly CAP Resp insuff COPD HTN CAD, s/p CABG PLAN: Abx Rocephin and Zithro Aerosol nebs Supplement 02 Keep sat >90% IVF to D5NS Ensure 1 can tid Solunedrol 40 mg q 12 hrs EZ PAP Lasix 20 mg IV dailyDC Plans for rehab Gaurav Rodriguez MD Oct 15, 2016 18:32
[2016-10-15] MEDS: AMITRIPTYLINE HCL 100 MG TAB PO SCH (20:28)
[2016-10-15] MEDS: predniSONE 20 MG TAB PO SCH (20:28)
[2016-10-15] MEDS: PRAVASTATIN SOD 80 MG TAB PO SCH (20:28)
[2016-10-16] VITALS (16 sets, daily range): BP systolic 124–147; BP diastolic 66–82; PULSE 75–98; RESP 22–35; TEMP 98.4–98.7; O2SAT 91–95
[2016-10-16] MEDS: INSULIN ASPART SUPPLEMENTAL SCALE SQ SCH ×2 (06:46→11:30)
[2016-10-16] MEDS: RESP: ALBUTEROL 2.5 MG/IPRATROPIUM 0.5 MG NEB (PRN) NEB ×2 (07:38→11:15)
[2016-10-16] MEDS ORDERED: FUROSEMIDE 20 MG TAB PO SCH (09:00)
[2016-10-16] MEDS ORDERED: LEVOFLOXACIN 750 MG TAB PO SCH (09:00)
[2016-10-16] MEDS: ASPIRIN 325 MG TAB PO SCH (10:21)
[2016-10-16] MEDS: MULTIVITAMIN TAB PO SCH (10:21)
[2016-10-16] MEDS: VERAPAMIL HCL 240 MG SUSTAINED RELEASE TAB PO SCH (10:21)
[2016-10-16] MEDS: predniSONE 20 MG TAB PO SCH (10:21)
[2016-10-16] MEDS: guaiFENesin E.R. 600 MG TAB PO SCH (10:21)
[2016-10-16] MEDS: CYANOCOBALAMIN 1,000 MCG TAB PO SCH (10:22)
[2016-10-16] MEDS: BENZONATATE 100 MG CAP PO PRN (10:22)
[2016-10-16] MEDS: HEPARIN SODIUM - SQ 10,000 UNITS/ML VIAL SQ SCH (10:22)
[2016-10-16] MEDS ORDERED: MEDR4PAK PO (12:44)
[2016-10-16] MEDS ORDERED: LEVA750T PO (12:44)
--- NOTE | 2016-10-16 12:45 | HHI.DS ---
Discharge Summary Admission Date Oct 07, 2016 at 14:21 Discharge Date: Oct 16, 2016 Admitting Diagnosis multi lobar pneumonia (1) Bilateral pneumonia ICD Code: J18.9 (2) Hypoxia ICD Code: R09.02 (3) Lactic acid acidosis ICD Code: E87.2 (4) Febrile illness ICD Code: R50.9 (5) Hypertension ICD Code: I10 (6) Hyperlipidemia ICD Code: E78.5 (7) Chronic obstructive pulmonary disease ICD Code: J44.9 (8) Gastroesophageal reflux ICD Code: K21.9 (9) Acute respiratory failure ICD Code: J96.00 Procedures None Brief History - From Admission 71-year-old female with known history of hypertension, hyponatremia, coronary artery disease, gastroesophageal reflux, chronic obstructive pulmonary disease, history CABG 2 presented to the hospital because of fever, chills, body aches, lethargy for 3 days. Patient was in her normal state of health until [place] even when she states that finished cooking the turkey and did not feel well so she told her son that she was going to go to bed. Patient states that she did not get out of bed until her daughter came and told her today that she had no choice is either going the ambulance or her taking her to the hospital. During this 3 days the patient states that she is lying in bed, had no energy, lethargic, cough without any phlegm production, fever and chills , body aches. She denied any nausea, vomiting, diarrhea, constipation, no unilateral weakness. The patient denies any recent travel, however she did go to [facility] approximately a week ago. She states he did get her flu shot in July. At the time of seeing the patient she obviously looks much better than her record and x-ray show. Patient will be admitted for further evaluation management. CBC/BMP: 10/14/16 0435 10/14/16 0435 Significant Findings Laboratory Tests Test 10/14/16 04:35 Red Blood Count 3.63 MIL/MM3 (4.00-5.30) Neutrophils (%) (Auto) 95.9 % (16.0-70.0) Lymphocytes (%) (Auto) 2.8 % (9.0-44.0) Neutrophils # (Auto) 9.4 TH/MM3 (1.8-7.7) Lymphocytes # (Auto) 0.3 TH/MM3 (1.0-4.8) Estimat Glomerular Filtration 73 ML/MIN (>89) Rate Random Glucose 441 MG/DL (74-106) Hemoglobin A1c 6.5 % (4.3-6.0) Imaging Last Impressions Chest X-Ray 10/13/16 0000 Signed Impressions: Service Date/Time: Thursday, October 13, 2016 14:28 - CONCLUSION: No significant change has occurred. Filemon Hannah MD Chest CT 10/07/16 0000 Signed Impressions: Service Date/Time: Friday, October 07, 2016 14:47 - CONCLUSION: 1. Multilobar consolidation greater in the upper lobes likely pneumonia. Treatment and followup to resolution. 2. Status post CABG. Justen Keen MD PE at Discharge GENERAL: Well-nourished, well-developed pleasant obese female patient. SKIN: Warm and dry. HEAD: Normocephalic. EYES: No scleral icterus. No injection or drainage. NECK: Supple, trachea midline. No JVD or lymphadenopathy. CARDIOVASCULAR: Regular rate and rhythm without murmurs, gallops, or rubs. RESPIRATORY: Breath sounds equal bilaterally. Scant crackles LLL, and anterior left lung field. Mild increased work of breathing on NC. GASTROINTESTINAL: Abdomen soft, non-tender, nondistended. EXTREMITIES: No cyanosis, or edema. NEUROLOGICAL: Awake, alert, and oriented x 3. Non-focal. Hospital Course Patient was admitted to the hospital and treated with broad-spectrum antibiotics and steroids. She did have significant respiratory failure and was on oxygen facemask for several days. Sputum cultures were negative. Strep pneumonia urine antigen and Legionella antigen were negative. Blood cultures were negative. The patient started to make gradual improvement after a day 5 in the hospital. She has now been weaned down to 3 L nasal cannula and is been stable on that for the past 3 days. She did have hyperglycemia secondary to steroids which were discontinued. Hemoglobin A1c is 6.5 indicating prediabetes. She has been on by mouth Levaquin and continues to do well. However she is weak from her hospitalization. Plans are made for her to be discharged to shelter facility today. Pt Condition on Discharge: Stable Discharge Disposition: Discharge to SNF Discharge Time: > 30 minutes Discharge Instructions DIET: Follow Instructions for: Heart Healthy Diet Activities you can perform: Regular-No Restrictions New Medications: Methylprednisolone Dosepak (Medrol Dosepak) 4 Mg Dspk 4 MG PO DIRECTED Per Pharmacist direction #1 Ref 0 DSPK Levofloxacin (Levaquin) 750 Mg Tab 750 MG PO DAILY Infection #4 TAB Continued Medications: Amitriptyline HCl (Elavil) 25 Mg Tab 100 MG PO HS Aspirin (Aspirin) 325 Mg Tab 325 MG PO DAILY #30 Ref 0 TAB Cyanocobalamin (Vitamin B12 Tr) 1,000 Mcg Tab 1000 MCG PO DAILY #1 BOTTLE Dextromethorphan-Guaifenesin (Mucinex DM) 30-600 Mg Tab 1 TAB PO BID PRN CHEST CONGESTION AND/OR COUGH Ref 0 TAB Lovastatin (Lovastatin) 40 Mg Tab 80 MG PO HS Cholesterol Management #60 Ref 0 TAB Multiple Vitamin (Multi Vitamin) 1 Tab Tab 1 TAB PO DAILY TAB [place]-3 Fatty Acids ([place] 3 1000 mg) 1 Cap Cap Verapamil ER 24 HR (Verapamil ER 24 HR) 240 Mg Tab 240 MG PO BID #30 Ref 0 TAB Ayleen Ybarra MD Oct 16, 2016 12:45
[2016-12-16] MEDS ORDERED: ASPI1TAB69 PO (14:21)
[2016-12-16] MEDS ORDERED: CARV6.252 PO (14:25)
[2016-12-16] MEDS ORDERED: FURO1TAB62 PO (14:25)
[2016-12-16] MEDS ORDERED: BRIL90TA PO (14:25)
== END 2016-10-16 15:28 | DRG 193 ==
LOC: PHED 11:14 → PHEDA 14:21 → PHICU 20:08
PROVIDERS: ADMIT Family Medicine; ATTEND Family Medicine
PROC: 3E0F7GC Introduction of Other Therapeutic Substance into Respiratory Tract, Via Natural or Artificial Opening (ICD-10-PCS; principal; 2016-10-07)
PROC: 5A09357 Assistance with Respiratory Ventilation, Less than 24 Consecutive Hours, Continuous Positive Airway Pressure (ICD-10-PCS; 2016-10-09)
PROC: 5A09357 Assistance with Respiratory Ventilation, Less than 24 Consecutive Hours, Continuous Positive Airway Pressure (ICD-10-PCS; 2016-10-12)
DX: J18.9 Pneumonia, unspecified organism (principal); J96.01 Acute respiratory failure with hypoxia; E87.2 Acidosis; J44.0 Chronic obstructive pulmonary disease with (acute) lower respiratory infection; E78.5 Hyperlipidemia, unspecified; K21.9 Gastro-esophageal reflux disease without esophagitis; I25.10 Atherosclerotic heart disease of native coronary artery without angina pectoris; Z95.1 Presence of aortocoronary bypass graft; I25.2 Old myocardial infarction; Z82.49 Family history of ischemic heart disease and other diseases of the circulatory system; Z80.1 Family history of malignant neoplasm of trachea, bronchus and lung; Z87.891 Personal history of nicotine dependence; I15.9 Secondary hypertension, unspecified; E87.6 Hypokalemia; F41.0 Panic disorder [episodic paroxysmal anxiety]; Z53.20 Procedure and treatment not carried out because of patient's decision for unspecified reasons
CPT/HCPCS: 36600; 71010; 71250; 80048; 80053; 81001; 82805; 82948; 83036; 83605; 83735; 83880; 84484; 85025; 87040; 87070; 87205; 87449; 87633; 87641; 87804; 93306; 94002; 94003; 94150; 94640; 94664; 96374; 96375; C9113; J0360; J0456; J0696; J1644; J1815; J1940; J2060; J2405; J2920; J2930; J3480; J7030; J7050; J7512

== ENCOUNTER → 2016-12-16 | Outpatient (CLI) | payer MEDICARE ==
[~2016-12-16] MED LIST changes: -AMIT100 PO; +AMIT1TAB79 PO; +ASPI1TAB69 PO; +BRIL90TA PO; -CALA240T PO; +CARV6.252 PO; -CIPR500T4 PO; -FISH100020 PO; -FLAG500T PO; +FURO1TAB62 PO; -HYDR-3533 PO; +LEVA750T PO; +LOVA40TA PO; +MEDR4PAK PO; -MEVA40TA PO; +MUCI30TA2 PO; +MULT-135 PO; -MULT1TAB46 PO; +OMEG100010 PO; +VERA1TAB17 PO
[2016-12-16 15:38] LABS: AUTOMATED NEUTROPHIL # 4.2 TH/MM3 (1.8-7.7); BASOPHIL # 0.1 TH/MM3 (0-0.2); BASOPHIL % 0.8 % (0.0-2.0); EOSINOPHIL # 0.2 TH/MM3 (0-0.4); EOSINOPHIL % 2.4 % (0.0-4.0); HEMATOCRIT 41.6 % (35.0-46.0); HEMO FLAGS DIFF FINAL; LYMPH % 26.1 % (9.0-44.0); LYMPHOCYTE # 1.7 TH/MM3 (1.0-4.8); MEAN CELL VOLUME 97.6 FL (80.0-100.0); MEAN CORPUSCULAR HEMOGLOBIN 31.8 PG (27.0-34.0); MEAN CORPUSCULAR HGB CONC 32.6 % (32.0-36.0); MONO % 5.6 % (0.0-8.0); NEUT % 65.1 % (16.0-70.0); PLATELET COUNT 253 TH/MM3 (150-450); RED BLOOD COUNT 4.27 MIL/MM3 (4.00-5.30); RED CELL DISTRIBUTION WIDTH 14.2 % (11.6-17.2); WHITE BLOOD COUNT 6.6 TH/MM3 (4.0-11.0)
== END ==
LOC: PHPRE 13:58
PROVIDERS: ATTEND Ophthalmology
DX: Z01.812 Encounter for preprocedural laboratory examination (principal); H26.9 Unspecified cataract
CPT/HCPCS: 85025

== ENCOUNTER 2017-10-18 11:45 | Emergency (ER) | payer MEDICARE ==
[~2017-10-18] VITALS: Ht 162.6 cm; Wt 72.8 kg
[~2017-10-18 11:45] MED LIST changes: -ASPI325T PO; -LEVA750T PO; -MEDR4PAK PO; -MUCI30TA2 PO; -VERA1TAB17 PO
[2017-10-18 12:25] VITALS: BP 152/79; PULSE 74; RESP 18; TEMP 99.1; O2SAT 95
[2017-10-18] MEDS ORDERED: LOSA50TA PO (12:51)
[2017-10-18] MEDS ORDERED: ASPI81CH6 CHEW (12:51)
[2017-10-18] MEDS ORDERED: DICY20TA10 PO (12:51)
[2017-10-18] MEDS ORDERED: AMIT100T2 PO (12:51)
[2017-10-18] MEDS ORDERED: ATOR40TA16 PO (12:51)
[2017-10-18] MEDS ORDERED: BUTATAB6 PO (12:51)
[2017-10-18] MEDS ORDERED: NITR1SUB3 SL (12:51)
[2017-10-18] MEDS ORDERED: RESP: ALBUTEROL 2.5 MG/IPRATROPIUM 0.5 MG NEB (SCH) NEB ONE (13:15)
[2017-10-18 13:40] LABS: AUTOMATED NEUTROPHIL # 6.8 TH/MM3 (1.8-7.7); BASOPHIL # 0.1 TH/MM3 (0-0.2); BASOPHIL % 1.1 % (0.0-2.0); EOSINOPHIL % 0.5 % (0.0-4.0); HEMATOCRIT 37.9 % (35.0-46.0); HEMOGLOBIN 12.6 GM/DL (11.6-15.3); LYMPH % 14.9 % (9.0-44.0); LYMPHOCYTE # 1.3 TH/MM3 (1.0-4.8); MEAN CELL VOLUME 96.3 FL (80.0-100.0); MEAN CORPUSCULAR HEMOGLOBIN 31.9 PG (27.0-34.0); MEAN CORPUSCULAR HGB CONC 33.1 % (32.0-36.0); MEAN PLATELET VOLUME 8.2 FL (7.0-11.0); MONOCYTE # 0.6 TH/MM3 (0-0.9); NEUT % 76.5 % (16.0-70.0); PLATELET COUNT 288 TH/MM3 (150-450); RED BLOOD COUNT 3.94 MIL/MM3 (4.00-5.30); RED CELL DISTRIBUTION WIDTH 12.6 % (11.6-17.2); WHITE BLOOD COUNT 8.8 TH/MM3 (4.0-11.0)
--- NOTE | 2017-10-18 13:52 | PD ---
HPI Chief Complaint: Respiratory Symptoms Time Seen by Provider: 13:13 Travel History International Travel<30 days: No Contact w/Intl Traveler<30days: No Traveled to known affect area: No History of Present Illness HPI Patient presents with complaints of cough and mild dyspnea and subjective fever for 3-4 days. Denies nausea vomiting or diarrhea. History of COPD. Denies any new rashes. Currently a nonsmoker. Reports evaluation by her primary care provider. Started on a Z-Manoj with a single injection of steroid and MDI. Reports persistent symptoms. PFSH Past Medical History Hx Anticoagulant Therapy: Yes (asa 81mg) Arthritis: Yes Asthma: No Autoimmune Disease: No Blood Disorders: No Anxiety: Yes (controlled on meds) Depression: No Heart Rhythm Problems: No Cancer: No Cardiac Catheterization: Yes Cardiovascular Problems: Yes (htn on meds, CT with one stent) High Cholesterol: Yes (controlled on meds) Chemotherapy: No Chest Pain: No Congestive Heart Failure: No COPD: Yes Cerebrovascular Accident: No Coronary Artery Disease: Yes Diabetes: No Diminished Hearing: No Diverticulitis: Yes Endocrine: No Gastrointestinal Disorders: Yes (COLITIS, DIVERTICULITIS) GERD: Yes Glaucoma: No Genitourinary: No Headaches: Yes (MIGRAINE) Hepatitis: No Hiatal Hernia: No Hypertension: Yes (controlled on meds) Immune Disorder: No Kidney Stones: No Musculoskeletal: Yes Neurologic: Yes Psychiatric: No Reproductive: No Respiratory: Yes (copd) Immunizations Current: Yes Migraines: Yes Myocardial Infarction: Yes (2003) Radiation Therapy: Yes Renal Failure: No Sleep Apnea: No Thyroid Disease: No Ulcer: No PNEUMOCCOCAL Vaccine (Year): 1 ?: Not Menopausal: Yes Past Surgical History Abdominal Surgery: Yes (HERNIA REPAIR) AICD: No Cardiac Surgery: Yes (5 BYPASS, CARDIAC CATH/STENT NOV 2016) Coronary Artery Bypass Graft: Yes (2003 X) Gynecologic Surgery: Yes (HYSTERECTOMY) Hysterectomy: Yes Pacemaker: No Other Surgery: Yes (HERNIA) Social History Alcohol Use: No Tobacco Use: No (QUIT 2004) Substance Use: No Allergies-Medications (Allergen,Severity, Reaction): Coded Allergies: ketorolac (Unverified Allergy, Severe, Hallucinations, 10/18/17) Reported Meds & Prescriptions Reported Meds & Active Scripts Active Reported Aspirin Low Dose (Aspirin) 81 Mg Chew 81 Mg CHEW DAILY Nitroglycerin SL (Nitroglycerin) 0.4 Mg Subl 0.4 Mg SL DIRECTED PRN ONE TABLET UNDER THE TONGUE NEEDED FOR CHEST PAIN, MAY REPEAT EVERY FIVE MINUTES FOR A TOTAL OF 3 DOSES OR CALL 911 IF NO RELIEF Entycoolzq-Zbtwgxbujlber-Brnpvike 50-325-40 Mg Tab 2 Tab PO Q4H PRN Do not exceed 6 tablets/day. Dicyclomine (Dicyclomine HCl) 20 Mg Tab 20 Mg PO TID Amitriptyline (Amitriptyline HCl) 100 Mg Tab 100 Mg PO HS Atorvastatin (Atorvastatin Calcium) 40 Mg Tab 40 Mg PO HS Losartan (Losartan Potassium) 50 Mg Tab 50 Mg PO DAILY Carvedilol 6.25 Mg Tab 6.25 Mg PO BID Lasix (Furosemide) 20 Mg Tab 20 Mg PO DAILY Brilinta (Ticagrelor) 90 Mg Tab 90 Mg PO BID Vitamin B12 Tr (Cyanocobalamin) 1,000 Mcg Tab 1,000 Mcg PO DAILY [place] 3 1000 mg ([place]-3 Fatty Acids) 1 Cap Cap 1,000 Mg PO DAILY Review of Systems General / Constitutional: No: Fever Eyes: No: Visual changes HENT: No: Headaches Cardiovascular: No: Chest Pain or Discomfort Respiratory: Positive: Cough, Shortness of Breath Gastrointestinal: No: Abdominal Pain Genitourinary: No: Dysuria Musculoskeletal: No: Pain Skin: No Rash Neurologic: No: Weakness Psychiatric: No: Depression Endocrine: No: Polydipsia Hematologic/Lymphatic: No: Easy Bruising Physical Exam Narrative GENERAL: Well-nourished, well-developed patient. SKIN: Focused skin assessment warm/dry. HEAD: Normocephalic. EYES: No scleral icterus. No injection or drainage. NECK: Supple, trachea midline. No JVD or lymphadenopathy. CARDIOVASCULAR: Regular rate and rhythm without murmurs, gallops, or rubs. RESPIRATORY: Coarse in all gutierrez. No accessory muscle use. GASTROINTESTINAL: Abdomen soft, non-tender, nondistended. MUSCULOSKELETAL: No cyanosis, or edema. BACK: Nontender without obvious deformity. No CVA tenderness. Data Data Last Documented VS Vital Signs Date Time Temp Pulse Resp B/P (MAP) Pulse Ox O2 Delivery O2 Flow Rate FiO2 10/18/17 15:25 60 163/71 (101) 94 10/18/17 12:53 18 10/18/17 12:25 99.1 Orders Orders Complete Blood Count With Diff (1/6/18 13:13) Chest, Single Ap (10/18/17 ) Albuterol-Ipratropium Neb (Duoneb Neb) (10/18/17 13:15) Labs Laboratory Tests Test 10/18/17 13:36 White Blood Count 8.8 TH/MM3 Red Blood Count 3.94 MIL/MM3 Hemoglobin 12.6 GM/DL Hematocrit 37.9 % Mean Corpuscular Volume 96.3 FL Mean Corpuscular Hemoglobin 31.9 PG Mean Corpuscular Hemoglobin Concent 33.1 % Red Cell Distribution Width 12.6 % Platelet Count 288 TH/MM3 Mean Platelet Volume 8.2 FL Neutrophils (%) (Auto) 76.5 % Lymphocytes (%) (Auto) 14.9 % Monocytes (%) (Auto) 7.0 % Eosinophils (%) (Auto) 0.5 % Basophils (%) (Auto) 1.1 % Neutrophils # (Auto) 6.8 TH/MM3 Lymphocytes # (Auto) 1.3 TH/MM3 Monocytes # (Auto) 0.6 TH/MM3 Eosinophils # (Auto) 0.0 TH/MM3 Basophils # (Auto) 0.1 TH/MM3 CBC Comment DIFF FINAL Differential Comment MDM Medical Decision Making Medical Screen Exam Complete: Yes Emergency Medical Condition: Yes Differential Diagnosis upper respiratory infection, COPD exacerbation, pneumonia, viral syndrome Narrative Course Assessment and plan discussed with patient and 2 daughters at bedside. CBC reveals no elevated white count. Her breathing easier after DuoNeb treatment. Education on proper use of MDI was provided by respiratory therapy. Last 72 hours Impressions Chest X-Ray 10/18/17 0000 Signed Impressions: Service Date/Time: Wednesday, October 18, 2017 14:30 - CONCLUSION: 1. Cardiomegaly, resolution of the previously seen congestive heart failure Ubaldo Wright MD Diagnosis Primary Impression: COPD exacerbation Patient Instructions: General Instructions Additional Instructions: Rest fluids and Motrin. Medications as prescribed. Encourage frequent handwashing. Consider vitamin C and zinc to boost immune system. Follow-up with PCP. Return him or with any onset of new symptoms. Med/Other Pt SpecificInfo: Prescription(s) given Scripts Guaifenesin-Codeine Liq (Cheratussin AC Liq) 100-10 Mg/5 Ml Syrp 5-10 ML PO Q4H Y for COUGH AND COLD SYMPTOMS, #120 ML 0 Refills Do not exceed 6 doses/24 hrs. Prov: Isamel Moore MD 10/18/17 Prednisone (21) 10 mg tab Dose Pack (Prednisone (21) 10 mg tab Dose Pack) 10 Mg Pack 10 MG PO DIRECTED for Inflammation, #1 DSPK 0 Refills Prov: Ismael Moore MD 10/18/17 Azithromycin (Zithromax) 500 Mg Tab 500 MG PO DAILY for Infection for 7 Days, #7 TAB 0 Refills Prov: Ismael Moore MD 10/18/17 Disposition: 01 DISCHARGE HOME Condition: Good Ismael Moore MD Oct 18, 2017 13:52
[2017-10-18 15:25] VITALS: BP 163/71; PULSE 60; O2SAT 94
--- NOTE | 2017-10-18 15:57 | RADRPT ---
EXAM DATE/TIME: 10/18/2017 14:30 [facility] COMPARISON: CHEST SINGLE AP, October 13, 2016, 14:28. INDICATIONS : Cough. MEDICAL HISTORY : Chronic obstructive pulmonary disease. Diverticulitis. Hypertension. Cardiovascular disease. SURGICAL HISTORY : Inguinal hernia repair. CABG. Hysterectomy. ENCOUNTER: Initial ACUITY: 3 days PAIN SCORE: 0/10 LOCATION: Bilateral chest FINDINGS: The cardiac silhouette is normal in transverse diameter. Median sternotomy wires are present. The mario gs are free of acute parenchymal opacity. No effusions are identified. No pleural effusions are ident ified. CONCLUSION: 1. Cardiomegaly, resolution of the previously seen congestive heart failure Ubaldo Wright MD on October 18, 2017 at 15:54 Board Certified Radiologist. This report was verified electronically.
[2017-10-18] MEDS ORDERED: PRED10PA PO (16:07)
[2017-10-18] MEDS ORDERED: ZITH500T PO (16:07)
[2017-10-18] MEDS ORDERED: CHERSYP2 PO (16:07)
== END 2017-10-18 16:17 | disposition home or self-care (01) ==
LOC: PHED 11:45
DX: J44.1 Chronic obstructive pulmonary disease with (acute) exacerbation (principal); I10 Essential (primary) hypertension; I25.10 Atherosclerotic heart disease of native coronary artery without angina pectoris; F41.9 Anxiety disorder, unspecified; E78.00 Pure hypercholesterolemia, unspecified; I25.2 Old myocardial infarction; K21.9 Gastro-esophageal reflux disease without esophagitis; Z87.891 Personal history of nicotine dependence
CPT/HCPCS: 71045; 85025; 94664; 99284

== ENCOUNTER 2017-11-06 08:47 | Observation (INO) | payer MEDICARE ==
[~2017-11-06] VITALS: Ht 162.6 cm; Wt 75.0 kg
[2017-11-06] VITALS (10 sets, daily range): BP systolic 123–167; BP diastolic 68–87; PULSE 64–82; RESP 12–22; TEMP 96.5–97.5; O2SAT 92–100
[~2017-11-06 08:47] MED LIST changes: +AMIT100T2 PO; -AMIT1TAB79 PO; -ASPI1TAB69 PO; +ASPI81CH6 CHEW; +ATOR40TA16 PO; +BUTATAB6 PO; +CHERSYP2 PO; +DICY20TA10 PO; +LOSA50TA PO; -LOVA40TA PO; -MULT-135 PO; +NITR1SUB3 SL; +PRED10PA PO; +ZITH500T PO
[2017-11-06] MEDS ORDERED: SODIUM CHLORIDE 0.9% FLUSH 10 ML FLUSH IVF PRN (09:00)
[2017-11-06] MEDS ORDERED: NITROGLYCERIN 2% OINT 1 GM PACKET TOP ONE (09:00)
[2017-11-06] MEDS ORDERED: ASPIRIN 81 MG CHEW TAB PO ONE (09:00)
[2017-11-06 09:08] LABS: AUTOMATED NEUTROPHIL # 5.9 TH/MM3 (1.8-7.7); BASOPHIL % 0.5 % (0.0-2.0); EOSINOPHIL # 0.1 TH/MM3 (0-0.4); EOSINOPHIL % 1.7 % (0.0-4.0); HEMATOCRIT 39.5 % (35.0-46.0); HEMOGLOBIN 13.1 GM/DL (11.6-15.3); LYMPH % 17.8 % (9.0-44.0); LYMPHOCYTE # 1.4 TH/MM3 (1.0-4.8); MEAN CELL VOLUME 96.6 FL (80.0-100.0); MEAN CORPUSCULAR HEMOGLOBIN 32.1 PG (27.0-34.0); MEAN CORPUSCULAR HGB CONC 33.2 % (32.0-36.0); MEAN PLATELET VOLUME 7.2 FL (7.0-11.0); MONO % 4.1 % (0.0-8.0); MONOCYTE # 0.3 TH/MM3 (0-0.9); NEUT % 75.9 % (16.0-70.0); PLATELET COUNT 348 TH/MM3 (150-450); RED BLOOD COUNT 4.09 MIL/MM3 (4.00-5.30); RED CELL DISTRIBUTION WIDTH 13.2 % (11.6-17.2); WHITE BLOOD COUNT 7.7 TH/MM3 (4.0-11.0)
--- NOTE | 2017-11-06 09:12 | PD ---
HPI Chief Complaint: Chest Pain Time Seen by Provider: 08:57 Travel History International Travel<30 days: No Contact w/Intl Traveler<30days: No Traveled to known affect area: No History of Present Illness HPI patient c/o chest pain, pressure, substernal, nonradiating, onset at 6am today and lasted until 8am, despite patient taking asa 325mg and ntg SLx2. patient denies any alleviating/aggravating factors....denies assoc factors such as fever /cough/abd pain/back pain/n/v/d/. per patient she had a 4 way bypass about 8 years ago and then a stent last year. all:toradol pcp jhon, cardio dr crane pmhx: divertic, pna, mi, gerd, copd, htn pshx:cabbg PFSH Past Medical History Hx Anticoagulant Therapy: Yes (asa 81mg) Arthritis: Yes Asthma: No Autoimmune Disease: No Blood Disorders: No Anxiety: Yes (controlled on meds) Depression: No Heart Rhythm Problems: No Cancer: No Cardiac Catheterization: Yes Cardiovascular Problems: Yes (htn on meds, [place] with one stent) High Cholesterol: Yes (controlled on meds) Chemotherapy: No Chest Pain: No Congestive Heart Failure: No COPD: Yes Cerebrovascular Accident: No Coronary Artery Disease: Yes Diabetes: No Diminished Hearing: No Diverticulitis: Yes Endocrine: No Gastrointestinal Disorders: Yes (COLITIS, DIVERTICULITIS) GERD: Yes Glaucoma: No Genitourinary: No Headaches: Yes (MIGRAINE) Hepatitis: No Hiatal Hernia: No Hypertension: Yes (controlled on meds) Immune Disorder: No Kidney Stones: No Musculoskeletal: Yes Neurologic: Yes Psychiatric: No Reproductive: No Respiratory: Yes (copd) Immunizations Current: Yes Migraines: Yes Myocardial Infarction: Yes (2003) Radiation Therapy: Yes Renal Failure: No Sleep Apnea: No Thyroid Disease: No Ulcer: No PNEUMOCCOCAL Vaccine (Year): 1 Menopausal: Yes Past Surgical History Abdominal Surgery: Yes (HERNIA REPAIR) AICD: No Cardiac Surgery: Yes (5 BYPASS, CARDIAC CATH/STENT NOV 2016) Coronary Artery Bypass Graft: Yes (2003 X) Gynecologic Surgery: Yes (HYSTERECTOMY) Hysterectomy: Yes Pacemaker: No Other Surgery: Yes (HERNIA) Social History Alcohol Use: No Tobacco Use: No (QUIT 2004) Substance Use: No Allergies-Medications (Allergen,Severity, Reaction): Coded Allergies: ketorolac (Unverified Allergy, Severe, Hallucinations, 11/06/17) Reported Meds & Prescriptions Reported Meds & Active Scripts Active Reported Aspirin Low Dose (Aspirin) 81 Mg Chew 81 Mg CHEW DAILY Nitroglycerin SL (Nitroglycerin) 0.4 Mg Subl 0.4 Mg SL DIRECTED PRN ONE TABLET UNDER THE TONGUE NEEDED FOR CHEST PAIN, MAY REPEAT EVERY FIVE MINUTES FOR A TOTAL OF 3 DOSES OR CALL 911 IF NO RELIEF Hfgokbmxed-Ylasqhklxkrzl-Hwiahywx 50-325-40 Mg Tab 2 Tab PO Q4H PRN Do not exceed 6 tablets/day. Dicyclomine (Dicyclomine HCl) 20 Mg Tab 20 Mg PO TID Amitriptyline (Amitriptyline HCl) 100 Mg Tab 100 Mg PO HS Atorvastatin (Atorvastatin Calcium) 40 Mg Tab 40 Mg PO HS Losartan (Losartan Potassium) 50 Mg Tab 50 Mg PO DAILY Carvedilol 6.25 Mg Tab 6.25 Mg PO BID Lasix (Furosemide) 20 Mg Tab 20 Mg PO DAILY Brilinta (Ticagrelor) 90 Mg Tab 90 Mg PO BID Vitamin B12 Tr (Cyanocobalamin) 1,000 Mcg Tab 1,000 Mcg PO DAILY [place] 3 1000 mg ([place]-3 Fatty Acids) 1 Cap Cap 1,000 Mg PO DAILY Review of Systems Except as stated in HPI: all other systems reviewed are Neg General / Constitutional: No: Fever Eyes: No: Visual changes HENT: No: Headaches Cardiovascular: Positive: Chest Pain or Discomfort Respiratory: No: Shortness of Breath Gastrointestinal: No: Abdominal Pain Genitourinary: No: Dysuria Musculoskeletal: No: Pain Skin: No Rash Neurologic: No: Weakness Psychiatric: No: Depression Endocrine: No: Polydipsia Hematologic/Lymphatic: No: Easy Bruising Physical Exam Narrative GENERAL: SKIN: Warm and dry. HEAD: Atraumatic. Normocephalic. EYES: Pupils equal and round. No scleral icterus. No injection or drainage. ENT: No nasal bleeding or discharge. Mucous membranes pink and moist. NECK: Trachea midline. No JVD. CARDIOVASCULAR: Regular rate and rhythm. RESPIRATORY: No accessory muscle use. Clear to auscultation. Breath sounds equal bilaterally. GASTROINTESTINAL: Abdomen soft, non-tender, nondistended. MUSCULOSKELETAL: Extremities without clubbing, cyanosis, or edema. No obvious deformities. NEUROLOGICAL: Awake and alert. No obvious cranial nerve deficits. Motor grossly within normal limits. Five out of 5 muscle strength in the arms and legs. Normal speech. PSYCHIATRIC: Appropriate mood and affect; insight and judgment normal. Data Data Last Documented VS Vital Signs Date Time Temp Pulse Resp B/P (MAP) Pulse Ox O2 Delivery O2 Flow Rate FiO2 11/06/17 09:10 Room Air 11/06/17 08:47 99 2.00 11/06/17 08:47 97.5 81 22 167/72 (103) Orders Orders Electrocardiogram (11/06/17 08:57) B-Type Natriuretic Peptide (11/06/17 08:57) Ckmb (Isoenzyme) Profile (11/06/17 08:57) Complete Blood Count With Diff (11/06/17 08:57) Comprehensive Metabolic Panel (11/06/17 08:57) Prothrombin Time / Inr (Pt) (11/06/17 08:57) Act Partial Throm Time (Ptt) (11/06/17 08:57) Troponin I (11/06/17 08:57) Lipase (11/06/17 08:57) Chest, Single Ap (11/06/17 08:57) Ecg Monitoring (11/06/17 08:57) Bilateral Bp Monitoring (11/06/17 08:57) Iv Access Insert/Monitor (11/06/17 08:57) Oximetry (11/06/17 08:57) Oxygen Administration (11/06/17 08:57) Aspirin Chew (Aspirin Chew) (11/06/17 09:00) Nitroglycerin 2% Oint (Nitroglycerin 2% (11/06/17 09:00) Sodium Chloride 0.9% Flush (Ns Flush) (11/06/17 09:00) Labs Laboratory Tests Test 11/06/17 09:04 White Blood Count 7.7 TH/MM3 Red Blood Count 4.09 MIL/MM3 Hemoglobin 13.1 GM/DL Hematocrit 39.5 % Mean Corpuscular Volume 96.6 FL Mean Corpuscular Hemoglobin 32.1 PG Mean Corpuscular Hemoglobin Concent 33.2 % Red Cell Distribution Width 13.2 % Platelet Count 348 TH/MM3 Mean Platelet Volume 7.2 FL Neutrophils (%) (Auto) 75.9 % Lymphocytes (%) (Auto) 17.8 % Monocytes (%) (Auto) 4.1 % Eosinophils (%) (Auto) 1.7 % Basophils (%) (Auto) 0.5 % Neutrophils # (Auto) 5.9 TH/MM3 Lymphocytes # (Auto) 1.4 TH/MM3 Monocytes # (Auto) 0.3 TH/MM3 Eosinophils # (Auto) 0.1 TH/MM3 Basophils # (Auto) 0.0 TH/MM3 CBC Comment DIFF FINAL Differential Comment Prothrombin Time 10.2 SEC Prothromb Time International Ratio 1.0 RATIO Activated Partial Thromboplast Time 24.0 SEC Blood Urea Nitrogen 18 MG/DL Creatinine 1.20 MG/DL Random Glucose 170 MG/DL Total Protein 7.8 GM/DL Albumin 3.2 GM/DL Calcium Level 8.9 MG/DL Alkaline Phosphatase 132 U/L Aspartate Amino Transf (AST/SGOT) 18 U/L Alanine Aminotransferase (ALT/SGPT) 23 U/L Total Bilirubin 0.4 MG/DL Sodium Level 137 MEQ/L Potassium Level 4.1 MEQ/L Chloride Level 101 MEQ/L Carbon Dioxide Level 26.0 MEQ/L Anion Gap 10 MEQ/L Estimat Glomerular Filtration Rate 44 ML/MIN Total Creatine Kinase 45 U/L Troponin I LESS THAN 0.02 NG/ML B-Type Natriuretic Peptide 26 PG/ML Lipase 99 U/L MDM Medical Decision Making Medical Screen Exam Complete: Yes Emergency Medical Condition: Yes Medical Record Reviewed: Yes Interpretation(s) nsr 75, nl intervals, no stemi pattern, inverted t waves on I/AVL Differential Diagnosis stemi v nonstemi v pna v ptx v pleural effusion Narrative Course due to patient's high risk she will be admitted for observation to chest pain center minimum to eval for nonstemi....nl cbc, nl electrolyte, neg troponin Diagnosis Primary Impression: Chest pain, rule out acute myocardial infarction Admitting Information Admitting Physician Requests: Observation Nilson Stokes MD Nov 06, 2017 09:12
[2017-11-06 09:16] LABS: CHLORIDE 101 MEQ/L (98-107); SODIUM (NA) 137 MEQ/L (136-145)
[2017-11-06 09:23] LABS: PROTHROMBIN TIME - PATIENT 10.2 SEC (9.8-11.6)
--- NOTE | 2017-11-06 09:26 | RADRPT ---
EXAM DATE/TIME: 11/06/2017 09:12 [facility] COMPARISON: CHEST SINGLE AP, October 18, 2017, 14:30. INDICATIONS : Chest pain, short of breath. MEDICAL HISTORY : Chronic obstructive pulmonary disease. Hypertension Cardiovascular disease. SURGICAL HISTORY : CABG. ENCOUNTER: Initial ACUITY: 1 day PAIN SCORE: 1/10 LOCATION: Bilateral chest FINDINGS: Median sternotomy wires are present. Single AP view of the chest. The lungs are clear. Cardiomediasti nal silhouette within normal limits. No evidence of pleural effusion or pneumothorax. CONCLUSION: No acute cardiopulmonary disease identified. Warren Saldivar MD on November 06, 2017 at 9:23 Board Certified Radiologist. This report was verified electronically.
[2017-11-06 09:44] LABS: CALCIUM 8.9 MG/DL (8.5-10.1)
[2017-11-06 09:45] LABS: ALBUMIN 3.2 GM/DL (3.4-5.0); BLOOD UREA NITROGEN 18 MG/DL (7-18); GLUCOSE,RANDOM 170 MG/DL (74-106); LIPASE 99 U/L (73-393)
[2017-11-06 09:48] LABS: ALT (GPT) 23 U/L (10-53); AST (GOT) 18 U/L (15-37); GLOMERULAR FILTRATION RATE 44 ML/MIN (>89)
[2017-11-06 09:50] LABS: TOTAL BILIRUBIN ADULT 0.4 MG/DL (0.2-1.0); TOTAL PROTEIN 7.8 GM/DL (6.4-8.2)
[2017-11-06 09:51] LABS: ALKALINE PHOSPHATASE 132 U/L (45-117)
[2017-11-06 09:53] LABS: TROPONIN I LESS THAN 0.02 NG/ML (0.02-0.05)
[2017-11-06] MEDS ORDERED: SODIUM CHLORIDE 0.9% FLUSH 10 ML FLUSH IV FLUSH PRN (13:45)
[2017-11-06] MEDS ORDERED: ACETAMINOPHEN 500 MG CPLT PO PRN (13:45)
[2017-11-06] MEDS ORDERED: ONDANSETRON HCL 4 MG/2 ML VIAL IV PUSH PRN (13:45)
--- NOTE | 2017-11-06 14:21 | HHI.HP ---
[facility] Stephanie Horner MD Admission Diagnosis CP R/O MN Diagnoses: (1) COPD with exacerbation (2) Acute kidney injury (3) Chest pain, rule out acute myocardial infarction (4) Hypertension (5) Hyperlipidemia Chief Complaint: Chest pain Travel History International Travel<30 Days: No Contact w/Intl Traveler <30 Da: No Traveled to Known Affected Are: No History of Present Illness This is a 72-year-old female patient with a known medical history of CAD with MN and stent placement, hypertension, diverticulitis, COPD who presented to the ED with complaints of worsening cough and shortness of breath with associated chest pain. Patient states that she has had a nonproductive cough for the past month. She has visited her primary care doctor who prescribed her steroids and antibiotics. Patient states she finished these with no improvement therefore she presented to the emergency room and was given additional round of steroids and antibiotics. She finished these last Friday. States she had been feeling somewhat better with continued cough. She states that around 6 AM this morning upon getting up from bed she develops the chest discomfort that was characterized as sharp in nature and occurred with coughing. She does admit to having this type of pain intermittently over the past month or so. Denies any associated nausea or vomiting. Does admit to diaphoresis this morning, although she states she thinks this is related to her upper respiratory infection. Denies any recent fevers, chills, abdominal pain, nausea, vomiting or diarrhea. Patient follows with her primary care doctor. Has not established with a tool tender, has recently been diagnosis COPD. It should be noted that she was hospitalized last year for pneumonia. Patient follows with Dr. Goodman, cardiology, and underwent a cardiac stress test in August of last year which was reportedly negative. Patient does have a history of CABG eight years ago, and underwent a cardiac catheterization in November 2016 when went chest was placed. Review of Systems Constitutional: DENIES: Fever, Chills Eyes: DENIES: Blurred vision, Diplopia Respiratory: COMPLAINS OF: Cough, Shortness of breath, DENIES: Sputum production Cardiovascular: COMPLAINS OF: Chest pain, DENIES: Palpitations Gastrointestinal: DENIES: Abdominal pain, Black stools, Constipation, Diarrhea , Nausea, Vomiting Integumentary: DENIES: Abnormal pigmentation Hematologic/lymphatic: DENIES: Bruising Neurologic: DENIES: Abnormal gait Psychiatric: COMPLAINS OF: Anxiety Except as stated in HPI: all other systems reviewed are Neg Past Family Social History Past Medical History CAD with MN and CABG with stent placement COPD Arthritis Colitis Diverticulitis Migraines Past Surgical History Bilateral cataracts Hernia repair CABG Cardiac stent placement in November 2016 Hysterectomy Reported Medications Active Reported Aspirin Low Dose (Aspirin) 81 Mg Chew 81 Mg CHEW DAILY Nitroglycerin SL (Nitroglycerin) 0.4 Mg Subl 0.4 Mg SL DIRECTED PRN ONE TABLET UNDER THE TONGUE NEEDED FOR CHEST PAIN, MAY REPEAT EVERY FIVE MINUTES FOR A TOTAL OF 3 DOSES OR CALL 911 IF NO RELIEF Oatwlvdpmg-Omzpvmnwqpvne-Xsajnnzl 50-325-40 Mg Tab 2 Tab PO Q4H PRN Do not exceed 6 tablets/day. Dicyclomine (Dicyclomine HCl) 20 Mg Tab 20 Mg PO TID Amitriptyline (Amitriptyline HCl) 100 Mg Tab 100 Mg PO HS Atorvastatin (Atorvastatin Calcium) 40 Mg Tab 40 Mg PO HS Losartan (Losartan Potassium) 50 Mg Tab 50 Mg PO DAILY Carvedilol 6.25 Mg Tab 6.25 Mg PO BID Lasix (Furosemide) 20 Mg Tab 20 Mg PO DAILY Brilinta (Ticagrelor) 90 Mg Tab 90 Mg PO BID Vitamin B12 Tr (Cyanocobalamin) 1,000 Mcg Tab 1,000 Mcg PO DAILY [place]gerton 3 1000 mg ([place]gerton-3 Fatty Acids) 1 Cap Cap 1,000 Mg PO DAILY Allergies: Coded Allergies: ketorolac (Unverified Allergy, Severe, Hallucinations, 11/06/17) Active Ordered Medications Current Medications Medications (Trade) Dose Ordered Sig/Tona Route Start Time Stop Time Status Last Admin (NS Flush) 2 ml UNSCH PRN IV FLUSH 11/06/17 13:45 (NS Flush) 2 ml BID IV FLUSH 11/06/17 21:00 (Tylenol) 500 mg Q4H PRN PO 11/06/17 13:45 (Zofran Inj) 4 mg Q6H PRN IV PUSH 11/06/17 13:45 (Aspirin Chew) 81 mg DAILY CHEW 11/07/17 09:00 (Lipitor) 40 mg HS PO 11/06/17 21:00 (Fioricet 325-50-40) 2 tab Q4H PRN PO 11/06/17 13:45 (Coreg) 6.25 mg BID PO 11/06/17 21:00 (Vitamin B12) 1,000 mcg DAILY PO 11/07/17 09:00 (Bentyl) 20 mg TID PO 11/06/17 18:00 (Lasix) 20 mg DAILY PO 11/07/17 09:00 (Cozaar) 50 mg DAILY PO 11/07/17 09:00 (Brilinta) 90 mg BID PO 11/06/17 15:00 (Duoneb Neb) 1 ampule Q6HR WHILE AWAKE NEB NEB 11/06/17 20:00 (Duoneb Neb) 1 ampule Q2HR NEB PRN NEB 11/06/17 14:30 (SoluMEDROL INJ) 60 mg Q6H IV PUSH 11/06/17 15:00 11/06/17 15:45 (Protonix Inj) 40 mg Q24H IV PUSH 11/06/17 15:45 UNV (Phenergan-Codeine Liq) 5 ml Q6H PRN PO 11/06/17 15:45 UNV (Mucomyst 10% Neb) 2 ml Q6HR NEB NEB 11/06/17 16:00 UNV (Elavil) 100 mg HS PO 11/06/17 21:00 Family History Maternal medical history significant for MN at the age of seventy. Paternal medical history significant for MN at the age of fifty-six. Social History Denies any current tobacco use, states she quit in 2004. Denies any alcohol or illicit drug use. Physical Exam Vital Signs Vital Signs Date Time Temp Pulse Resp B/P (MAP) Pulse Ox O2 Delivery O2 Flow Rate FiO2 11/06/17 12:00 97.5 66 12 136/82 (100) 96 11/06/17 11:20 65 11/06/17 10:41 11/06/17 10:38 65 16 123/73 (90) 100 Nasal Cannula 2.00 11/06/17 09:10 Room Air 11/06/17 09:08 68 16 149/82 (104) 99 Nasal Cannula 2.00 11/06/17 08:47 99 Nasal Cannula 2.00 11/06/17 08:47 97.5 81 22 167/72 (103) 99 11/06/17 08:47 22 99 Room Air 11/06/17 08:47 69 160/72 (101) 149/82 (104) Physical Exam GENERAL: Well-nourished, well-developed patient in NAD. On supplemental O2. SKIN: Warm and dry. No rash. HEAD: Normocephalic. Atraumatic. EYES: Pupils equal and round. No scleral icterus. No injection or drainage. ENT: No nasal bleeding or discharge. Mucous membranes pink and moist. NECK: Supple. Trachea midline. CARDIOVASCULAR: Regular rate and rhythm. S1, S2 noted. No murmur appreciated. No reproducible chest pain RESPIRATORY: No accessory muscle use. Diffuse expiratory wheezing in upper and lower posterior lobes. Breath sounds equal bilaterally. GASTROINTESTINAL: Abdomen soft, non-tender, nondistended. Normoactive bowel sounds x4. MUSCULOSKELETAL: No obvious deformities. Extremities without clubbing, cyanosis , or edema. NEUROLOGICAL: Awake and alert. No obvious cranial nerve deficits. Motor grossly within normal limits. 5/5 muscle strength in bilateral upper and lower extremities. Normal speech. PSYCHIATRIC: Appropriate mood and affect; insight and judgment normal. Laboratory Laboratory Tests Test 11/06/17 09:04 11/06/17 14:00 White Blood Count 7.7 Red Blood Count 4.09 Hemoglobin 13.1 Hematocrit 39.5 Mean Corpuscular Volume 96.6 Mean Corpuscular Hemoglobin 32.1 Mean Corpuscular Hemoglobin Concent 33.2 Red Cell Distribution Width 13.2 Platelet Count 348 Mean Platelet Volume 7.2 Neutrophils (%) (Auto) 75.9 Lymphocytes (%) (Auto) 17.8 Monocytes (%) (Auto) 4.1 Eosinophils (%) (Auto) 1.7 Basophils (%) (Auto) 0.5 Neutrophils # (Auto) 5.9 Lymphocytes # (Auto) 1.4 Monocytes # (Auto) 0.3 Eosinophils # (Auto) 0.1 Basophils # (Auto) 0.0 CBC Comment DIFF FINAL Differential Comment Prothrombin Time 10.2 Prothromb Time International Ratio 1.0 Activated Partial Thromboplast Time 24.0 Blood Urea Nitrogen 18 Creatinine 1.20 Random Glucose 170 Total Protein 7.8 Albumin 3.2 Calcium Level 8.9 Alkaline Phosphatase 132 Aspartate Amino Transf (AST/SGOT) 18 Alanine Aminotransferase (ALT/SGPT) 23 Total Bilirubin 0.4 Sodium Level 137 Potassium Level 4.1 Chloride Level 101 Carbon Dioxide Level 26.0 Anion Gap 10 Estimat Glomerular Filtration Rate 44 Total Creatine Kinase 45 Troponin I LESS THAN 0.02 B-Type Natriuretic Peptide 26 Lipase 99 Result Diagram: 11/06/1704 11/06/17 0904 Imaging Last Impressions Chest X-Ray 11/06/17 0857 Signed Impressions: Service Date/Time: October 09:12 - CONCLUSION: No acute cardiopulmonary disease identified. Warren Saldivar MD Septic Shock Reassessment Septic shock perfusion: reassessment completed Caprini VTE Risk Assessment Caprini VTE Risk Assessment: Mod/High Risk (score >= 2) Caprini Risk Assessment Model Point Value = 1 Point Value = 2 Point Value = 3 Point Value = 5 Age 41-60 Minor surgery BMI > 25 kg/m2 Swollen legs Varicose veins or History of unexplained or recurrent spontaneous Oral contraceptives or hormone replacement Sepsis (< 1 month) Serious lung disease, including pneumonia (< 1 month) Abnormal pulmonary function Acute myocardial infarction Congestive heart failure (< 1 month) History of inflammatory bowel disease Medical patient at bed rest Age 61-74 Arthroscopic surgery Major open surgery (> 45 min) Laparoscopic surgery (> 45 min) Malignancy Confined to bed (> 72 hours) Immobilizing plaster cast Central venous access Age >= 75 History of VTE Family history of VTE Factor V Leiden Prothrombin [id number] Lupus anticoagulant Anticardiolipin antibodies Elevated serum homocysteine Heparin-induced thrombocytopenia Other congenital or acquired thrombophilia Stroke (< 1 month) Elective arthroplasty Hip, pelvis, or leg fracture Acute spinal cord injury (< 1 month) Prophylaxis Regimen Total Risk Factor Score Risk Level Prophylaxis Regimen 0-1 Low Early ambulation 2 Moderate Order ONE of the following: *Sequential Compression Device (SCD) *Heparin 5000 units SQ BID 3-4 Higher Order ONE of the following medications: *Heparin 5000 units SQ TID *Enoxaparin/Lovenox 40 mg SQ daily (WT < 150 kg, CrCl > 30 mL/min) *Enoxaparin/Lovenox 30 mg SQ daily (WT < 150 kg, CrCl > 10-29 mL/min) *Enoxaparin/Lovenox 30 mg SQ BID (WT < 150 kg, CrCl > 30 mL/min) AND/OR *Sequential Compression Device (SCD) 5 or more Highest Order ONE of the following medications: *Heparin 5000 units SQ TID (Preferred with Epidurals) *Enoxaparin/Lovenox 40 mg SQ daily (WT < 150 kg, CrCl > 30 mL/min) *Enoxaparin/Lovenox 30 mg SQ daily (WT < 150 kg, CrCl > 10-29 mL/min) *Enoxaparin/Lovenox 30 mg SQ BID (WT < 150 kg, CrCl > 30 mL/min) AND *Sequential Compression Device (SCD) Assessment and Plan Problem List: (1) COPD with exacerbation ICD Code: J44.1 - Chronic obstructive pulmonary disease with (acute) exacerbation Plan: Chest x-ray reviewed showing no acute cardiopulmonary disease identified. CBC reviewed, unremarkable. Will obtain d-dimer. Follow. Consult placed pulmonology, patient has underlying COPD and does not follow up with the tool tender in the outpatient setting. Appreciate recommendations and input. Placed on DuoNeb's scheduled and when necessary will add Mucomyst. Continue IV steroids. Phenergan with codeine for cough. Prophylaxis: Protonix. (2) Atypical chest pain ICD Code: R07.89 - Other chest pain Plan: Patient has been admitted to the chest pain center for observation. See serial EKGs and serial troponins have been ordered for ruling out ACS purposes. Initial two troponins are negative. Follow last trend. EKG reviewed showing normal sinus rhythm with controlled heart rate, no ST changes to indicate ischemia. Patient follows with Dr. Goodman in the outpatient setting, attempted to call him regarding patient presentation but unable to get a hold of him. Will continue to rule out ACS and monitor. Patient underwent cardiac stress test last August which was reportedly negative. (3) Acute kidney injury ICD Code: N17.9 - Acute kidney failure, unspecified Plan: Creatinine on presentation 1.2. Will give IV fluids. Continue to monitor BMP. (4) Hyperlipidemia ICD Code: E78.5 - Hyperlipidemia, unspecified Status: Chronic Plan: Continue home statin (5) CAD (coronary artery disease) of bypass graft ICD Code: I25.810 - Atherosclerosis of coronary artery bypass graft(s) without angina pectoris Plan: Continue home Brilinta and aspirin. (6) Hypertension ICD Code: I10 - Essential (primary) hypertension Status: Chronic Plan: Blood pressure well controlled. Continue home medications. Monitor BP trends. DVT prophylaxis: SCDs. Ingrid Vegas Nov 06, 2017 14:21
[2017-11-06] MEDS: TICAGRELOR 90 MG TAB PO SCH ×2 (14:24→20:44)
[2017-11-06] MEDS ORDERED: RESP: ALBUTEROL 2.5 MG/IPRATROPIUM 0.5 MG NEB (PRN) NEB (14:30)
[2017-11-06 14:33] LABS: TROPONIN I LESS THAN 0.02 NG/ML (0.02-0.05)
[2017-11-06] MEDS ORDERED: PROMETHAZINE/CODEINE 6.25 MG/10 MG/5 ML CUP PO PRN (15:45)
[2017-11-06] MEDS: methylPREDNISolone SOD SUCC 125 MG/2 ML VIAL IV PUSH SCH ×3 (15:45→23:09)
[2017-11-06] MEDS ORDERED: PANTOPRAZOLE SODIUM 40 MG VIAL IV PUSH SCH (16:00)
[2017-11-06] MEDS ORDERED: RESP: ACETYLCYSTEINE 10% 10 ML NEB NEB SCH (16:00)
[2017-11-06] MEDS: ACETAMIN 325 MG/BUTALBITAL 50 MG/CAFFEINE 40 MG TAB PO PRN ×2 (16:12→21:52)
[2017-11-06] MEDS: DICYCLOMINE HCL 20 MG TAB PO SCH (16:12)
[2017-11-06 17:07] LABS: TROPONIN I LESS THAN 0.02 NG/ML (0.02-0.05)
[2017-11-06] MEDS: RESP: ACETYLCYSTEINE 10% 10 ML NEB NEB SCH (19:45)
[2017-11-06] MEDS: RESP: ALBUTEROL 2.5 MG/IPRATROPIUM 0.5 MG NEB (SCH) NEB (19:47)
[2017-11-06] MEDS: CARVEDILOL 6.25 MG TAB PO SCH (20:44)
[2017-11-06] MEDS: SODIUM CHLORIDE 0.9% FLUSH 10 ML FLUSH IV FLUSH SCH (20:46)
[2017-11-06] MEDS ORDERED: AMITRIPTYLINE HCL 50 MG TAB PO SCH (21:00)
[2017-11-06] MEDS ORDERED: ATORVASTATIN 40 MG TAB PO SCH (21:00)
[2017-11-06] MEDS ORDERED: AMITRIPTYLINE HCL 100 MG TAB PO SCH (21:00)
--- NOTE | 2017-11-06 21:38 | RADRPT ---
EXAM DATE/TIME: 11/06/2017 20:57 [facility] COMPARISON: CHEST SINGLE AP, November 06, 2017, 9:12. CT THORAX W/O CONTRAST, October 07, 2016, 14:47. INDICATIONS : Chest pain. Shortness of breath. Infiltrate RADIATION DOSE: 7.97 CTDIvol (mGy) MEDICAL HISTORY : Cardiovascular disease. Hypertension. Chronic obstructive pulmonary disease. SURGICAL HISTORY : CABG Coronary artery stent.Hysterectomy. ENCOUNTER: Initial ACUITY: 1 day PAIN SCALE: 5/10 LOCATION: chest TECHNIQUE: Volumetric scanning of the chest was performed. Using automated exposure control and adjustment of t he mA and/or kV according to patient size, radiation dose was kept as low as reasonably achievable to obtain optimal diagnostic quality images. DICOM format image data is available electronically for r eview and comparison. Follow-up recommendations for detected pulmonary nodules are based at a minimum on nodule size and pa tient risk factors according to Fleischner Society Guidelines. FINDINGS: There is mild left base infiltrate which involves both the lower lobe and lingular division of the le ft upper lobe, for example series 3 image 31. The previously seen bilateral upper lobe infiltrates samuel ve resolved. There is reduced but minimal residual nodular infiltrate in the right middle lobe. No ef fusion. No pneumothorax. Heart size stable, within normal limits. No mediastinal, hilar or axillary lymphadenopathy. Patient h as had previous median sternotomy and CABG. CONCLUSION: Mild left base infiltrate, new from the prior CT. Jayme Parker MD on November 06, 2017 at 21:33 Board Certified Radiologist. This report was verified electronically.
[2017-11-06] MEDS: methylPREDNISolone SOD SUCC 40 MG/1 ML VIAL IV PUSH SCH (21:41)
--- NOTE | 2017-11-06 22:59 | EKG ---
Date Performed: 11/06/2017 Time Performed: 08:52:50 PTAGE: 72 years EKG: Sinus rhythm NORMAL ECG PREVIOUS TRACING : 09/19/2010 20.27 Since the prior tracing, there has been no significant rowe DOCTOR: Luis Campos Interpretating Date/Time 11/06/2017 22:58:17
[2017-11-07] VITALS: BP 131/71; PULSE 80; RESP 18; TEMP 97.3; O2SAT 94
[2017-11-07] MEDS: methylPREDNISolone SOD SUCC 40 MG/1 ML VIAL IV PUSH SCH ×2 (06:08→13:34)
[2017-11-07 06:24] LABS: AUTOMATED NEUTROPHIL # 6.1 TH/MM3 (1.8-7.7); BASOPHIL % 0.2 % (0.0-2.0); EOSINOPHIL % 0.1 % (0.0-4.0); HEMATOCRIT 39.2 % (35.0-46.0); HEMOGLOBIN 12.9 GM/DL (11.6-15.3); LYMPHOCYTE # 0.6 TH/MM3 (1.0-4.8); MEAN CELL VOLUME 97.3 FL (80.0-100.0); MEAN CORPUSCULAR HGB CONC 32.9 % (32.0-36.0); MEAN PLATELET VOLUME 7.6 FL (7.0-11.0); MONO % 0.3 % (0.0-8.0); NEUT % 90.4 % (16.0-70.0); PLATELET COUNT 350 TH/MM3 (150-450); RED BLOOD COUNT 4.03 MIL/MM3 (4.00-5.30); RED CELL DISTRIBUTION WIDTH 13.1 % (11.6-17.2); WHITE BLOOD COUNT 6.7 TH/MM3 (4.0-11.0)
[2017-11-07 06:41] LABS: CALCIUM 8.9 MG/DL (8.5-10.1)
[2017-11-07 06:42] LABS: BICARBONATE 26.3 MEQ/L (21.0-32.0)
[2017-11-07 06:45] LABS: CREATININE 0.91 MG/DL (0.50-1.00)
[2017-11-07] MEDS: RESP: ALBUTEROL 2.5 MG/IPRATROPIUM 0.5 MG NEB (SCH) NEB ×2 (07:50→14:33)
[2017-11-07] MEDS: RESP: ACETYLCYSTEINE 10% 10 ML NEB NEB SCH ×2 (07:52→14:34)
[2017-11-07 07:56] VITALS: O2SAT 96
[2017-11-07 08:00] VITALS: BP 138/80; PULSE 70; RESP 14; TEMP 96.7; O2SAT 96
[2017-11-07] MEDS: methylPREDNISolone SOD SUCC 125 MG/2 ML VIAL IV PUSH SCH (08:45)
[2017-11-07] MEDS: CARVEDILOL 6.25 MG TAB PO SCH (08:53)
[2017-11-07] MEDS: DICYCLOMINE HCL 20 MG TAB PO SCH ×2 (08:53→13:34)
[2017-11-07] MEDS: TICAGRELOR 90 MG TAB PO SCH (08:53)
[2017-11-07] MEDS ORDERED: LOSARTAN 50 MG TAB PO SCH (09:00)
[2017-11-07] MEDS ORDERED: AZITHROMYCIN 250 MG TAB PO SCH (09:00)
[2017-11-07] MEDS ORDERED: FUROSEMIDE 20 MG TAB PO SCH (09:00)
[2017-11-07] MEDS ORDERED: CYANOCOBALAMIN 1,000 MCG TAB PO SCH (09:00)
[2017-11-07] MEDS ORDERED: ASPIRIN 81 MG CHEW TAB CHEW SCH (09:00)
[2017-11-07] MEDS: ACETAMIN 325 MG/BUTALBITAL 50 MG/CAFFEINE 40 MG TAB PO PRN (09:09)
--- NOTE | 2017-11-07 09:26 | HHI.PR ---
Subjective Remarks Follow up COPD exacerbation and chest pain. Patient seen and examined, sitting up in bed eating breakfast comfortably. States she had an uneventful night. No reports of any acute events. Eating well. Denies any chest pain. On RA. Objective Vitals Vital Signs Date Time Temp Pulse Resp B/P (MAP) Pulse Ox O2 Delivery O2 Flow Rate FiO2 11/07/17 00:00 97.3 80 18 131/71 (91) 94 11/06/17 23:00 64 11/06/17 20:00 96.5 82 19 138/68 (91) 92 11/06/17 19:48 98 Nasal Cannula 1.00 11/06/17 16:00 97.1 68 12 141/87 (105) 97 11/06/17 14:41 99 Nasal Cannula 2.00 11/06/17 12:00 97.5 66 12 136/82 (100) 96 11/06/17 11:20 65 11/06/17 10:41 11/06/17 10:38 65 16 123/73 (90) 100 Nasal Cannula 2.00 Result Diagram: 11/07/17 0510 11/07/17 0510 Imaging Last Impressions Chest CT 11/06/172030 Signed Impressions: Service Date/Time: October 20:57 - CONCLUSION: Mild left base infiltrate, new from the prior CT. Jayme Parker MD Chest X-Ray 11/06/17 0857 Signed Impressions: Service Date/Time: October 09:12 - CONCLUSION: No acute cardiopulmonary disease identified. Warren Saldivar MD Objective Remarks GENERAL: Well-nourished, well-developed patient in NAD. On room air. SKIN: Warm and dry. No rash. HEAD: Normocephalic. Atraumatic. EYES: Pupils equal and round. No scleral icterus. No injection or drainage. ENT: No nasal bleeding or discharge. Mucous membranes pink and moist. NECK: Supple. Trachea midline. CARDIOVASCULAR: Regular rate and rhythm. S1, S2 noted. No murmur appreciated. RESPIRATORY: No accessory muscle use. Clear to auscultation. Breath sounds equal bilaterally. GASTROINTESTINAL: Abdomen soft, non-tender, nondistended. Normoactive bowel sounds x4. MUSCULOSKELETAL: No obvious deformities. Extremities without clubbing, cyanosis , or edema. NEUROLOGICAL: Awake and alert. No obvious cranial nerve deficits. Motor grossly within normal limits. 5/5 muscle strength in bilateral upper and lower extremities. Normal speech. PSYCHIATRIC: Appropriate mood and affect; insight and judgment normal. A/P Problem List: (1) COPD with exacerbation ICD Code: J44.1 - Chronic obstructive pulmonary disease with (acute) exacerbation Plan: Chest x-ray reviewed showing no acute cardiopulmonary disease identified. CBC reviewed, unremarkable. D-dimer elevated. Chest CT reviewed showing mild left base infiltrate Consult placed pulmonology, patient has underlying COPD and does not follow up with the ruffler in the outpatient setting. Pulmonology has seen patient with recommendations for PFTs and antibiotics. Placed on DuoNeb's scheduled and when necessary will add Mucomyst. Continue IV steroids. Phenergan with codeine for cough. Prophylaxis: Protonix. (2) Atypical chest pain ICD Code: R07.89 - Other chest pain Plan: Patient has been admitted to the chest pain center for observation. See serial EKGs and serial troponins have been ordered for ruling out ACS purposes. Serial troponins negative. EKG reviewed showing normal sinus rhythm with controlled heart rate, no ST changes to indicate ischemia. ACS ruled out. Patient underwent cardiac stress test last July which was reportedly negative. Chest pain has now resolved. Spoke to Dr. Goodman's PA and updated about patient status. Who reviewed chart and patient underwent a cardiac stress test last July which was unremarkable. Recommendations from cardiac standpoint is stable and to follow up with Dr. Goodman on scheduled appointment in a couple weeks. (3) Acute kidney injury ICD Code: N17.9 - Acute kidney failure, unspecified Plan: Creatinine on presentation 1.2. Improved. (4) Hyperlipidemia ICD Code: E78.5 - Hyperlipidemia, unspecified Status: Chronic Plan: Continue home statin (5) CAD (coronary artery disease) of bypass graft ICD Code: I25.810 - Atherosclerosis of coronary artery bypass graft(s) without angina pectoris Plan: Continue home Brilinta and aspirin. (6) Hypertension ICD Code: I10 - Essential (primary) hypertension Status: Chronic Plan: Blood pressure well controlled. Continue home medications. Monitor BP trends. DVT prophylaxis: SCDs. Ingrid Vegas Nov 07, 2017 09:26
--- NOTE | 2017-11-07 10:17 | EKG ---
Date Performed: 11/06/2017 Time Performed: 14:07:54 PTAGE: 72 years EKG: Sinus rhythm NONSPECIFIC ST & T-WAVE ABNORMALITY BORDERLINE ECG PREVIOUS TRACING : 11/06/2017 08.52 No change from previous tracing noted. DOCTOR: Varun Calderon Interpretating Date/Time 11/07/2017 10:16:34
[2017-11-07] MEDS ORDERED: LEVOFLOXACIN 750 MG TAB PO SCH (11:00)
--- NOTE | 2017-11-07 11:01 | MB ---
cc: MIGUEL ANGEL SALOMON DATE OF CONSULTATION 11/06/2017 REASON FOR CONSULTATION COPD. HISTORY OF PRESENT ILLNESS This is a 72-year-old lady with a history of coronary artery disease and previous IA and stent placement, who has been admitted through the emergency room with persistent cough, shortness of breath, wheezing and some chest pain. The patient was coughing for at least 3-4 weeks with a flu-like illness which later progressed to bronchitis. She was treated with a course of antibiotic and steroid but failed to improve. She was seen in the emergency room because she had some chest tightness and pressure. She denied any nausea, vomiting, fevers or chills. A chest x-ray was done upon arrival in the emergency room which showed no active pulmonary infiltrates. The patient was placed on oxygen via nasal cannula and subsequently admitted. She has recently been told that she has COPD but has not been on any specific medication. She denies any history of hemoptysis and denied nausea and reflux. PAST MEDICAL HISTORY 1. Coronary artery disease with previous IA and coronary artery bypass grafting as well as stenting of the artery. 2. History of bronchitis. 3. History of diverticulitis. 4. Previous history of migraines. PAST SURGICAL HISTORY 1. CABG x3. 2. Hysterectomy. 3. Hernia repair. 4. Cataract surgery with implants. ALLERGIES KETOROLAC. HABITS The patient does not smoke presently, but smoked in the past a pack per day for over 30 years. No significant alcohol intake. FAMILY HISTORY History of heart disease on both sides of the family. MEDICATIONS 1. Losartan 50 mg daily. 2. Coreg 6.25 mg b.i.d. 3. Lasix 20 mg daily. 4. Brilinta 90 mg b.i.d. 5. Dicyclomine 20 mg t.i.d. 6. Amitriptyline 100 mg h.s. 7. Butalbital 50/325 mg, two tabs q.4h. 8. Aspirin, one daily. REVIEW OF SYSTEMS The patient has had no recent weight loss. No headaches or blackouts. She has some postnasal drip and sinus disease. She has had chest pain and pressure, wheezing and cough. Has some reflux symptoms. No GI bleed. No urinary symptoms. No leg or calf muscle pains. PHYSICAL EXAMINATION GENERAL: This is an elderly averagely built white female who is in no acute distress. VITAL SIGNS: Blood pressure 160/70, pulse 80, respirations 22, temperature 98. HEENT: Head is normocephalic. Pupils reactive and equal. Tongue is moist. Nasal mucosa is edematous. Throat is clear. NECK: No lymphadenopathy. No bruits. No thyroid enlargement. CHEST: Distant breath sounds with expiratory wheezes bilaterally. Prolonged expirations with no crackles. HEART: Heart sounds are regular, S1 and S2. No murmur. No S3. ABDOMEN: Soft, benign. No masses. No organomegaly or tenderness. Bowel sounds are active. EXTREMITIES: No edema. No calf tenderness. Homans sign is negative. NEUROLOGIC: Reflexes are 1+ with no gross motor deficits. Cranial nerves grossly intact. RECTAL: Exam is deferred. SKIN: No lesions. IMPRESSION 1. Chronic cough with reactive airways. 2. History of coronary artery disease and history of CABG. 3. Probable obstructive lung disease. 4. Hypertension. 5. Hyperlipidemia. 6. Acute kidney injury, resolving. PLAN The patient has been placed on O2 via nasal cannula at 2 liters. We will also start her on nebulized DuoNeb solution four times daily and get a pulmonary function study with bronchodilators. Will start her on Solu-Medrol 40 mg IV q.8h. and Zithromax 500 mg daily x3 days. The patient will have a CBC and BMP. Oxygen will be weaned down to room air if she is clinically stable. Cardiac evaluation has been conducted. If she is clinically stable and switched to oral medications over the next 24-48 hours the patient could be discharged for outpatient follow-up. Thank you for this consultation. MD JUAN Barry/TITI /12:02 AM /10:34 AM
[2017-11-07 12:35] VITALS: PULSE 54
--- NOTE | 2017-11-07 13:15 | RADRPT ---
EXAM DATE/TIME: 11/07/2017 12:37 [facility] COMPARISON: No previous studies available for comparison. INDICATIONS : Chest pain with dyspnea. DOSE: 8.5 mCi Tc99m MAA IV 0.72 mCi Tc99m DTPA aerosol MEDICAL HISTORY : Hypertension. Chronic obstructive pulmonary disease. Coronary artery disease. SURGICAL HISTORY : Hysterectomy. CABG Coronary artery stent. ENCOUNTER: Initial ACUITY: 1 day PAIN SCALE: 4/10 LOCATION: Left chest TECHNIQUE: Following five minutes of tidal breathing of DTPA aerosol, planar images of the lungs were performed in eight projections. The patient was then injected with MAA, and eight-view perfusion scan was perf ormed. FINDINGS: The examination demonstrates a single matched defect on the left which is felt to the patient's hiata l hernia. No other ventilatory or perfusion abnormality is identified. CONCLUSION: 1. Negative examination. Laci Porras MD on November 07, 2017 at 13:11 Board Certified Radiologist. This report was verified electronically.
[2017-11-07] MEDS: SODIUM CHLORIDE 0.9% FLUSH 10 ML FLUSH IV FLUSH SCH (13:34)
--- NOTE | 2017-11-07 13:43 | EKG ---
Date Performed: 11/06/2017 Time Performed: 16:23:04 PTAGE: 72 years EKG: Sinus rhythm NONSPECIFIC ST & T-WAVE ABNORMALITY BORDERLINE ECG PREVIOUS TRACING : 11/06/2017 14.07 Since previous tracing, no significant change noted DOCTOR: Dylan Rick Interpretating Date/Time 11/07/2017 13:42:21
--- NOTE | 2017-11-07 14:39 | HHI.DCPOC ---
Discharge Care Plan Diagnosis: (1) COPD with exacerbation Goals to Promote Your Health * To prevent worsening of your condition and complications * To maintain your health at the optimal level Directions to Meet Your Goals Take your medications as prescribed Follow your dietary instruction Follow activity as directed Keep your appointments as scheduled Take your immunizations and boosters as scheduled If your symptoms worsen call your PCP, if no PCP go to Urgent Care Center or Emergency Room Smoking is Dangerous to Your Health. Avoid second hand smoke Call the 24-hour hour crisis hotline for domestic abuse at [facility] [place] Nov 07, 2017 14:39
[2017-11-07] MEDS ORDERED: PRED20 PO (14:44)
[2017-11-07] MEDS ORDERED: LEVA750T9 PO (14:44)
[2017-11-07] MEDS ORDERED: Promethazine/Codeine Liq PO (14:44)
[2017-11-07] MEDS ORDERED: NEBULIZER1 MI1 (14:45)
[2017-11-07] MEDS ORDERED: Albuterol-Ipratropium Neb NEB (14:47)
[2017-11-07] MEDS ORDERED: PROT40TA PO (15:55)
--- NOTE | 2017-11-07 16:09 | RADRPT ---
EXAM DATE/TIME: 11/07/2017 15:46 [facility] COMPARISON: CHEST SINGLE AP, November 06, 2017, 9:12. INDICATIONS : Chest and jaw pain with dyspnea. MEDICAL HISTORY : Hypertension. Chronic obstructive pulmonary disease. CAD SURGICAL HISTORY : Hysterectomy. CABG Coronary artery stent ENCOUNTER: Initial ACUITY: 2 days PAIN SCORE: 4/10 LOCATION: Bilateral chest FINDINGS: A single view of the chest demonstrates the lungs to be symmetrically aerated without evidence of mas s, infiltrate or effusion. The cardiomediastinal contours are unremarkable. Evidence of previous car diothoracic surgery. Osseous structures are intact. CONCLUSION: No acute disease. No significant change has occurred. Chris Desouza MD on November 07, 2017 at 16:07 Board Certified Radiologist. This report was verified electronically.
[2017-11-07] MEDS ORDERED: DIFL150T PO (16:49)
[2017-11-07 17:14] VITALS: BP 146/69; PULSE 65; RESP 18; O2SAT 98
== END 2017-11-07 17:27 | disposition home or self-care (01) ==
LOC: PHED 08:47 → PHEDA 10:13 → PH3A 10:56
PROVIDERS: ADMIT Hospitalist; ATTEND Hospitalist
DX: J44.1 Chronic obstructive pulmonary disease with (acute) exacerbation (principal); J06.9 Acute upper respiratory infection, unspecified; N17.9 Acute kidney failure, unspecified; I25.10 Atherosclerotic heart disease of native coronary artery without angina pectoris; I10 Essential (primary) hypertension; E78.5 Hyperlipidemia, unspecified; I25.2 Old myocardial infarction; K21.9 Gastro-esophageal reflux disease without esophagitis; Z95.5 Presence of coronary angioplasty implant and graft; Z79.82 Long term (current) use of aspirin; Z87.891 Personal history of nicotine dependence; Z90.710 Acquired absence of both cervix and uterus
CPT/HCPCS: 71045; 71250; 78582; 80048; 80053; 82550; 83690; 83880; 84484; 85025; 85379; 85610; 85730; 93005; 94010; 94640; 94664; 96374; 96375; 96376; 99285; A9540; A9567; C9113; G0378; J2920; J2930; J7608